=== PATIENT | female | born 1985 | race Caucasian/White ===

== ENCOUNTER 2018-04-26 05:23 | Emergency (ER) | payer BC, SELFPAY ==
--- OUTSIDE RECORDS SUMMARY | 2018-04-26 05:25 | XMS REPORT ---
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
--- OUTSIDE RECORDS SUMMARY | 2018-04-26 05:25 | XMS REPORT ---
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), inattentive type Problem PTSD (post-traumatic stress F43.10 Active disorder) Problem Depression with anxiety F41.8 Active Problem Neck pain M54.2 Active Problem Gastroesophageal reflux disease K21.9 Active without esophagitis Problem Hypothyroidism, unspecified type E03.9 Active Problem 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), inattentive type Problem Primary insomnia F51.01 Active Assessment Seasonal allergic rhinitis, J30.2 Active unspecified trigger Assessment PTSD (post-traumatic stress F43.10 Active disorder) Assessment Depression with anxiety F41.8 Active Assessment Neck pain M54.2 Active Assessment Hypothyroidism, unspecified type E03.9 Active Medications Medication Code Code Instructions Start End Status Dosage System Date Date Levothyroxine [facility] 55711740631 25 MCG Orally Active 1 tablet Sodium Once a day on an empty stomach in the morning Prozac [facility] 61163956990 40 MG Orally Active 1 capsule Once a day in the morning Zantac [facility] 59868908264 150 MG Orally Active 1 tablet Once a day at bedtime Adderall [facility] 55961925160 10 MG Orally Active 1 tablet Twice a day in the morning Ambien [facility] 67010872762 10 MG Orally Active 1 tablet Once a day at bedtime as needed Results No Known Results Summary Purpose [employer] Submission
--- OUTSIDE RECORDS SUMMARY | 2018-04-26 05:25 | XMS REPORT ---
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), inattentive type Problem Hypothyroidism, unspecified type E03.9 Active Problem Seasonal allergic rhinitis, J30.2 Active unspecified trigger Problem Neck pain M54.2 Active Problem PTSD (post-traumatic stress F43.10 Active disorder) Problem Otalgia of both ears H92.03 Active Problem Primary insomnia F51.01 Active Problem Gastroesophageal reflux disease K21.9 Active without esophagitis Problem Depression with anxiety F41.8 Active Problem 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), inattentive type Assessment Otalgia of both ears H92.03 Active Assessment PTSD (post-traumatic stress F43.10 Active disorder) Assessment Depression with anxiety F41.8 Active Assessment Neck pain M54.2 Active Assessment Hypothyroidism, unspecified type E03.9 Active Assessment Seasonal allergic rhinitis, J30.2 Active unspecified trigger Assessment Primary insomnia F51.01 Active Medications Medication Code Code Instructions Start End Status Dosage System Date Prozac [facility] 18545613678 40 MG Orally Active 1 capsule Twice a day in the morning Levothyroxine [facility] 19319472170 25 MCG Orally Active 1 tablet Sodium Once a day on an empty stomach in the morning Amoxicillin [place] 68424778988 500 MG Orally December 10November Active 1 capsule every 8 hrs 2017 Ambien [facility] 85079365975 10 MG Orally Active 1 tablet Once a day at bedtime as needed Adderall [facility] 37458865149 10 MG Orally Active 1 tablet Twice a day in the morning Zantac [facility] 46503740183 150 MG Orally Active 1 tablet Once a day at bedtime Duexis [facility] 52619225867 800-26.6 MG Active 1 tablet Orally Three times a day PRN pain Results No Known Results Summary Purpose [employer]ClinicalWorks Submission
--- OUTSIDE RECORDS SUMMARY | 2018-04-26 05:25 | XMS REPORT ---
:1985 Author Organization [employer]ClinicalWorks Care Team Providers Name Role Phone Genet Kaur Provider Role Unavailable Allergies No Known Allergies Problems Problem Type Condition Code Onset Dates Condition Status Problem Hypothyroidism, unspecified type E03.9 Active Problem Seasonal allergic rhinitis, J30.2 Active unspecified trigger Problem Neck pain M54.2 Active Problem PTSD (post-traumatic stress F43.10 Active disorder) Problem Otalgia of both ears H92.03 Active Problem Primary insomnia F51.01 Active Problem Gastroesophageal reflux disease K21.9 Active without esophagitis Problem Depression with anxiety F41.8 Active Problem 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 67834317491 500 MG Orally January 01, January 08, Active 1 tablet Twice daily 2017 2017 Results No Known Results Summary Purpose [employer] Submission
--- OUTSIDE RECORDS SUMMARY | 2018-04-26 05:25 | XMS REPORT ---
:1985 Author Organization eClinicalWorks Care Team Providers Name Role Phone Kian Edwards Provider Role Unavailable Allergies No Known Allergies Problems Problem Type Condition Code Onset Dates Condition Status Assessment Neck pain M54.2 Active Problem Seasonal allergic rhinitis, J30.2 Active unspecified trigger Assessment Hypothyroidism, unspecified type E03.9 Active Problem PTSD (post-traumatic stress F43.10 Active disorder) Problem Depression with anxiety F41.8 Active Problem Neck pain M54.2 Active Problem Gastroesophageal reflux disease K21.9 Active without esophagitis Problem Hypothyroidism, unspecified type E03.9 Active Problem 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
--- OUTSIDE RECORDS SUMMARY | 2018-04-26 05:25 | XMS REPORT ---
[...] Start End Status Dosage System Date Date Prozac [facility] 63993536085 40 MG Orally Active 1 capsule Once a day in the morning Duexis [facility] 30584839881 800-26.6 MG November 12December Active 1 tablet Orally Three 2017 21, times a day PRN 2017 pain Ambien [place] 13177783842 10 MG Orally Active 1 tablet Once a day at bedtime as needed Adderall [facility] 18382347642 10 MG Orally Active 1 tablet Twice a day in the morning Levothyroxine ND 53265328867 25 MCG Orally Active 1 tablet Sodium Once a day on an empty stomach in the morning Zantac [facility] 46468595628 150 MG Orally Active 1 tablet Once a day at bedtime Results No Known Results Summary Purpose [employer]ClinicalWorks Submission
--- OUTSIDE RECORDS SUMMARY | 2018-04-26 05:25 | XMS REPORT ---
:1985 Author Organization [employer] Care Team Providers Name Role Phone Kian [...] Medications Results No Known Results Summary Purpose [facility] [employer] Submission
--- OUTSIDE RECORDS SUMMARY | 2018-04-26 05:25 | XMS REPORT ---
[...] F90.0 Active hyperactivity disorder), inattentive type Medications No Known Medications Results No Known Results Summary Purpose [employer]ClinicalWorks Submission
--- OUTSIDE RECORDS SUMMARY | 2018-04-26 05:25 | XMS REPORT ---
:1985 Author Organization [employer] Care Team Providers Name Role Phone Kian [...] Medications Results No Known Results Summary Purpose [facility] Submission
--- OUTSIDE RECORDS SUMMARY | 2018-04-26 05:25 | XMS REPORT ---
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
--- OUTSIDE RECORDS SUMMARY | 2018-04-26 05:25 | XMS REPORT ---
:1985 Author Organization [employer]Works Care Team Providers Name Role Phone Genet Kaur Provider Role Unavailable Allergies, Adverse Reactions, Alerts Substance Reaction Event Type tramadol more anxious/no sleep Drug Allergy Topamax mouth break out Drug Allergy Sudafed makes heart race Drug Allergy Problems Problem Type Condition Code Onset Dates Condition Status Problem Hypothyroidism, unspecified type E03.9 Active Problem Seasonal allergic rhinitis, J30.2 Active unspecified trigger Assessment Women's annual routine Z01.419 Active gynecological examination Assessment Generalized abdominal pain R10.84 Active Assessment Vagina itching N89.8 Active Problem Neck pain M54.2 Active Problem PTSD (post-traumatic stress F43.10 Active disorder) Problem Otalgia of both ears H92.03 Active Problem Primary insomnia F51.01 Active Problem Gastroesophageal reflux disease K21.9 Active without esophagitis Problem Depression with anxiety F41.8 Active Problem 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 88817210449 800-26.6 MG Active 1 tablet Orally Three times a day PRN pain Prozac [facility] 65686847229 40 MG Orally Active 1 capsule Twice a day in the morning Ambien [facility] 24848130219 10 MG Orally Active 1 tablet Once a day at bedtime as needed Adderall [facility] 33520560758 10 MG Orally Active 1 tablet Twice a day in the morning Levothyroxine [facility] 20259946031 25 MCG Orally Active 1 tablet Sodium Once a day on an empty stomach in the morning Zantac [facility] 11287614978 150 MG Orally Active 1 tablet Once a day at bedtime Results Name Result Date Reference Range Unit Abnormality Flag URINALYSIS AUTO W/O SCOPE (67749) ----NIT neg 20171226 ----URO 0.2 20171226 ----PROTEIN neg 20171226 ----pH 6.0 20171226 ----BLO 2+ 20171226 ----GLUCOSE neg 20171226 ----CHARLES neg 20171226 ----BILIRUBIN neg 20171226 ----KETONES neg 20171226 ----SPECIFIC GRAVITY 1.030 20171226 Summary Purpose [employer]ClinicalWorks Submission
--- OUTSIDE RECORDS SUMMARY | 2018-04-26 05:26 | XMS REPORT ---
:1985 Author Organization eClinicalWorks Care Team Providers Name Role Phone Jerry Kian Provider Role Unavailable Allergies, Adverse Reactions, Alerts Substance Reaction Event Type tramadol more anxious/no sleep Drug Allergy Topamax mouth break out Drug Allergy Sudafed makes heart race Drug Allergy Problems Problem Type Condition Code Onset Dates Condition Status Problem Primary insomnia F51.01 Active Problem Hypothyroidism, unspecified type E03.9 Active Problem Seasonal allergic rhinitis, J30.2 Active unspecified trigger Problem Otalgia of both ears H92.03 Active Problem Neck pain M54.2 Active Problem Essential tremor G25.0 Active Problem 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), inattentive type Problem Gastroesophageal reflux disease K21.9 Active without esophagitis Problem PTSD (post-traumatic stress F43.10 Active disorder) Problem Depression with anxiety F41.8 Active Assessment Seasonal allergic rhinitis, J30.2 Active unspecified trigger Assessment PTSD (post-traumatic stress F43.10 Active disorder) Assessment Neck pain M54.2 Active Assessment Essential tremor G25.0 Active Assessment Primary insomnia F51.01 Active Assessment Depression with anxiety F41.8 Active Assessment 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), inattentive type Assessment Hypothyroidism, unspecified type E03.9 Active Medications Medication Code Code Instructions Start End Status Dosage System Date Date Levothyroxine [facility] 91906242237 25 MCG Orally Active 1 tablet Sodium Once a day on an empty stomach in the morning Duexis [facility] 94020430082 800-26.6 MG Active 1 tablet Orally Three times a day PRN pain Prozac [facility] 08253492861 40 MG Orally Active 1 capsule Twice a day in the morning Propranolol HCl ND 39085023347 20 MG Orally Feb 06, Active 1 tablet Twice a day 2017 on an empty stomach Belsomra [facility] 44329067039 10 MG Orally Active 1 tablet Once a day at bedtime as needed Adderall [facility] 58363512369 10 MG Orally Active 1 tablet Twice a day in the morning Zantac [facility] 92711532228 150 MG Orally Active 1 tablet Once a day at bedtime Results No Known Results Summary Purpose eClinicalWorks Submission
--- OUTSIDE RECORDS SUMMARY | 2018-04-26 05:26 | XMS REPORT ---
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), inattentive type Assessment Hypothyroidism, unspecified type E03.9 Active Medications Medication Code Code Instructions Start End Status Dosage System Date Prozac [facility] 77060853978 40 MG Orally Active 1 capsule Twice a day in the morning Levothyroxine [facility] 39492063509 25 MCG Orally Active 1 tablet Sodium Once a day on an empty stomach in the morning Adderall [facility] 85660502668 10 MG Orally Active 1 tablet Twice a day in the morning Propranolol HCl [facility] 81670370036 20 MG Orally Active 1 tablet Twice a day on an empty stomach Belsomra [facility] 26143770823 10 MG Orally Active 1 tablet Once a day at bedtime as needed Zantac [facility] 65770499022 150 MG Orally Active 1 tablet Once a day at bedtime Duexis [facility] 93479077085 800-26.6 MG Active 1 tablet Orally Three times a day PRN pain Results No Known Results Summary Purpose [employer]ClinicalWorks Submission
--- OUTSIDE RECORDS SUMMARY | 2018-04-26 05:26 | XMS REPORT ---
:1985 Author Organization [employer]ClinicalWorks Care Team Providers Name Role Phone Jerry Kian Provider Role Unavailable Allergies No Known Allergies [...]
--- OUTSIDE RECORDS SUMMARY | 2018-04-26 05:26 | XMS REPORT ---
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), inattentive type Medications Medication Code Code Instructions Start End Status Dosage System Date Date Belsomra [facility] 18929840223 10 MG Orally January 09, Active 1 tablet Once a day 2017 at bedtime as needed Adderall [facility] 57720666061 10 MG Orally Active 1 tablet Twice a day in the morning Zantac [facility] 34004000471 150 MG Orally Active 1 tablet Once a day at bedtime Prozac [facility] 90252556151 40 MG Orally Active 1 capsule Twice a day in the morning Levothyroxine [facility] 31202814855 25 MCG Orally Active 1 tablet Sodium Once a day on an empty stomach in the morning Duexis [facility] 81003836270 800-26.6 MG Active 1 tablet Orally Three times a day PRN pain Ambien [facility] 53633635572 10 MG Orally Inactive 1 tablet Once a day at bedtime as needed Results No Known Results Summary Purpose eClinicalWorks Submission
--- OUTSIDE RECORDS SUMMARY | 2018-04-26 05:26 | XMS REPORT ---
:1985 Author Organization eClinicalWorks Care Team Providers Name Role Phone Jerry Kian Provider Role Unavailable Allergies No Known Allergies Problems Problem Type Condition Code Onset Dates Condition Status Problem Hypothyroidism, unspecified type E03.9 Active Problem Seasonal allergic rhinitis, J30.2 Active unspecified trigger Assessment Hypothyroidism, unspecified type E03.9 Active Problem Neck pain M54.2 Active Problem PTSD (post-traumatic stress F43.10 Active disorder) Problem Otalgia of both ears H92.03 Active Problem Primary insomnia F51.01 Active Problem Gastroesophageal reflux disease K21.9 Active without esophagitis Problem Depression with anxiety F41.8 Active Problem 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
[2018-04-26 07:18] LABS: Protime INR 0.94
[2018-04-26 07:21] LABS: Absolute Monocytes 0.8 K/uL (0.1-1.3); Absolute Neutrophil 6.6 K/uL (1.8-8.0); Eosinophils % 6.9 % (0-4.4); Hematocrit 37.9 % (36.0-45.0); Lymphocytes % 19.7 % (15.3-44.8); MCH 32.3 pg (27.0-35.0); MCV 93.8 fL (80-100); MPV 8.8 fL (7.6-11.3); Monocytes % 7.4 % (3.3-12.3); RBC Red Blood Cell Count 4.04 M/uL (3.86-4.86)
[2018-04-26 07:40] LABS: ALT/SGPT 37 U/L (12-78); AST/SGOT 19 U/L (15-37); Albumin 3.9 g/dL (3.4-5.0); Alkaline Phosphatase 84 U/L (45-117); BUN Blood Urea Nitrogen 15 mg/dL (7-18); Bicarbonate 26 mmol/L (21-32); Bilirubin Direct < 0.1 mg/dL (0-0.2); Bilirubin Total 0.2 mg/dL (0.2-1.0); Glucose Level 83 mg/dL (74-106); Magnesium 2.1 mg/dL (1.8-2.4); NT PRO-BNP 12 pg/mL (<125); Potassium 3.9 mmol/L (3.5-5.1); Protein, Total 7.5 g/dL (6.4-8.2); Sodium Level 139 mmol/L (136-145); Troponin (Emerg Dept Use Only) < 0.02 ng/mL (0.0-0.045)
--- NOTE | 2018-04-26 08:00 | EDPHYS ---
Physician Documentation [facility] Name: Gayla Nova Age: 32 yrs Sex: Female : 1985 Arrival Date: 04/26/2018 Time: 05:23 Bed 17 Private MD: [facility] ED Physician Massimo Dupree HPI: 04/26 06:12 This 32 yrs old Female presents to ER via Ambulatory with complaints of Chest rh1 Pain. 06:12 The patient or guardian reports chest pain that is located primarily in the anterior rh1 aspect of left upper chest. The pain radiates to the left shoulder. Associated signs and symptoms: Pertinent positives: cough, lightheadedness, near-syncope, shortness of breath, Pertinent negatives: abdominal pain, diaphoresis, lower extremity pain, lower extremity swelling, nausea, palpitations, recent travel, syncope. The chest pain is described as sharp. Duration: The patient or guardian reports multiple episodes, that are intermittent, that wax and wane, the episodes last approximately 1 second(s). Modifying factors: The symptoms are alleviated by nothing. the symptoms are aggravated by deep breath. Severity of pain: At its worst the pain was moderate in the emergency department the pain has resolved. The patient has not experienced similar symptoms in the past. The patient has not recently seen a physician. Reports left upper chest pain that began while at work 1 hour ago, moving through left shoulder. + SOB with onset of pain and continues at this time. Reports pain lasts for < 1 min at a time, and she becomes lightheaded with episodes. Last episode approx. 10 min ago. Denies any diaphoresis, N/V, syncope, leg pain/swelling, no recent surgery/travel.. 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 - Social history:: Smoking status: Patient uses tobacco products, smokes one-half pack cigarettes per day, Patient/guardian denies using alcohol, street drugs. - Ebola Screening: : No symptoms or risks identified at this time. - Family history:: not pertinent. ROS: 06:12 Constitutional: Negative for fever, chills rh1 06:12 ENT: Positive for nasal discharge, Negative for difficulty swallowing, difficulty handling secretions. 06:12 Cardiovascular: Positive for chest pain, Negative for edema, palpitations. 06:12 Respiratory: Positive for cough, with no reported sputum, shortness of breath, Negative for hemoptysis, sputum production, wheezing. 06:12 Abdomen/GI: Negative for abdominal pain, nausea, vomiting, and diarrhea. 06:12 Back: Negative for decreased range of motion, pain at rest, pain with movement, radiated pain. 06:12 MS/extremity: Positive for pain, from left chest, Negative for decreased range of motion, paresthesias. 06:12 Skin: Negative for diaphoresis. 06:12 Neuro: Positive for dizziness, near syncope, Negative for altered mental status, headache, numbness, syncope, tingling, weakness. 06:12 All other systems are negative. Exam: 06:12 Constitutional: This is a well developed, well nourished patient who is awake, alert, rh1 and in no acute distress. Head/Face: Normocephalic, atraumatic. ENT: Nares patent. No nasal discharge, no septal abnormalities noted. Tympanic membranes are normal and external auditory canals are clear. Oropharynx with no redness, swelling, or masses, exudates, or evidence of obstruction, uvula midline. Mucous membranes moist. Neck: Trachea midline, and no cervical lymphadenopathy. Supple, full range of motion without nuchal rigidity. No Meningismus. Cardiovascular: Regular rate and rhythm with a normal S1 and S2. No gallops, murmurs, or rubs. No JVD. No pulse deficits. Respiratory: Lungs have equal breath sounds bilaterally, clear to auscultation. No rales, rhonchi or wheezes noted. No increased work of breathing. Abdomen/GI: Soft, non-tender, with normal bowel sounds. No distension. No guarding or rebound. No evidence of tenderness throughout. Back: No spinal tenderness. No costovertebral tenderness. Full range of motion. 06:12 Skin: Warm, dry with normal turgor. Normal color with no rashes, no lesions, and no evidence of cellulitis. MS/ Extremity: Pulses equal, no cyanosis. Neurovascular intact. Full, normal range of motion. 06:12 Cardiovascular: Edema: is not appreciated. 06:12 Musculoskeletal/extremity: DVT Exam: No signs of deep vein thrombosis. no pain, no swelling, no tenderness, negative Homans' sign noted on exam, no appreciated bluish discoloration, no erythema, no increased warmth, Calves: are non-tender, have equal circumference. 06:12 Neuro: Orientation: is normal, to person, place \T\ time. Mentation: is normal, lucid, able to follow commands, Motor: is normal, moves all fours, Sensation: is normal, no obvious gross deficits. Vital Signs: 05:37 BP 127 / 87; Pulse 85; Resp 16 S; Temp 98.7(O); Pulse Ox 100% on R/A; Weight 97.52 kg bb (R); Height 5 ft. 2 in. (157.48 cm) (R); Pain 6/10; 07:05 BP 116 / 65; Pulse 79; Resp 19; Pulse Ox 100% on R/A; Pain 2/10; em 08:00 BP 112 / 72; Pulse 77; Resp 18; Pulse Ox 99% on R/A; Pain 2/10; em 05:37 Body Mass Index 39.32 (97.52 kg, 157.48 cm) bb MDM: 06:12 Patient medically screened. rh1 06:40 ED course: PERC = 0. rh1 07:57 The patient's deep vein thrombosis risk score was calculated as follows: Total Score: rh1 0. This patient was found to be at low risk for a deep vein thrombosis by using the Well's assessment criteria. Data reviewed: vital signs, nurses notes, lab test result(s), EKG, radiologic studies, plain films, and as a result, I will discharge patient. Data interpreted: Pulse oximetry: on room air is 100 %. Interpretation: normal. Counseling: I had a detailed discussion with the patient and/or guardian regarding: the historical points, exam findings, and any diagnostic results supporting the discharge/admit diagnosis, lab results, radiology results, the need for outpatient follow up, a family practitioner, to return to the emergency department if symptoms worsen or persist or if there are any questions or concerns that arise at home. ED course: Without pain at this time, VSS, labs unremarkable. 07:57 Special discussion: Based on the patient's history, exam, and Dx evaluation, there is rh1 no indication for emergent intervention or inpatient Tx. It is understood by the patient/guardian that if the Sx's persist or worsen they need to return immediately for re-evaluation. 04/26 06:10 Order name: Urine Dipstick--Ancillary (enter results) ms 04/26 06:10 Order name: Urine --Ancillary (enter results) ms 04/26 06:33 Order name: Basic Metabolic Panel; Complete Time: 07:41 [facility] 04/26 06:33 Order name: CBC with Diff; Complete Time: 07:29 [facility] 04/26 06:33 Order name: LFT's; Complete Time: 07:41 rh 04/26 06:33 Order name: Magnesium; Complete Time: 07:41 rh 04/26 06:33 Order name: NT PRO-BNP; Complete Time: 07:41 rh 04/26 06:33 Order name: PT-INR; Complete Time: 07:29 rh1 04/26 06:33 Order name: Troponin (emerg Dept Use Only); Complete Time: 07:41 [facility] 04/26 06:33 Order name: XRAY Chest (1 view) [facility] 04/26 06:33 Order name: TSH; Complete Time: 07:41 [facility] 04/26 06:33 Order name: Cardiac monitoring; Complete Time: 06:35 rh1 04/26 06:33 Order name: EKG - Nurse/Tech; Complete Time: 06:35 rh1 04/26 06:33 Order name: IV Saline Lock; Complete Time: 06:35 rh 04/26 06:33 Order name: Labs collected and sent; Complete Time: 06:35 1 04/26 06:33 Order name: O2 Per Protocol; Complete Time: 06:35 [facility] 04/26 06:33 Order name: O2 Sat Monitoring; Complete Time: 06:35 rh1 Administered Medications: No medications were administered Disposition: 08:19 Co-signature as Attending Physician, Massimo Dupree MD I agree with the assessment and kdr plan of care. Disposition: 04/26/18 07:59 Discharged to Home. Impression: Chest pain on breathing. - Condition is Stable. - Discharge Instructions: Nonspecific Chest Pain, Chest Wall Pain, Pleurisy. - Medication Reconciliation Form, Thank You Letter, Antibiotic Education, Prescription Opioid Use form. - Follow up: Kian Edwards DO; When: 1 - 2 days; Reason: Recheck today's complaints, Continuance of care, Re-evaluation by your physician. Follow up: Emergency Department; When: As needed; Reason: Fever > 102 F, If symptoms return, Trouble breathing, Worsening of condition. - Problem is new. - Symptoms have improved. Signatures: Dispatcher [employer] [facility] Massimo Dupree MD MD kdr Jesus Manuel Ospina, INSPECTOR CASING INSPECTOR CASING em Dee Arzate, RN RN Chasity Lua, DIGITAL MARKETING ASSOCIATE DIGITAL MARKETING ASSOCIATE rh1 Corrections: (The following items were deleted from the chart) 06:11 06:11 Urine Dipstick-Ancillary ordered. [facility] 06:11 06:11 Urine --Ancillary ordered. [facility] 08:14 07:59 04/26/2018 07:59 Discharged to Home. Impression: Chest pain on breathing. em Condition is Stable. Forms are Medication Reconciliation Form, Thank You Letter, Antibiotic Education, Prescription Opioid Use. Follow up: Kian Edwards; When: 1 - 2 days; Reason: Recheck today's complaints, Continuance of care, Re-evaluation by your physician. Follow up: Emergency Department; When: As needed; Reason: Fever > 102 F, If symptoms return, Trouble breathing, Worsening of condition. Problem is new. Symptoms have improved. rh1
--- NOTE | 2018-04-26 08:00 | ER ---
Nurse's Notes [facility] Name: Gayla Nova Age: 32 yrs Sex: Female : 1985 Arrival Date: 04/26/2018 Time: 05:23 Bed 17 Private MD: Kian Edwards Diagnosis: Chest pain on breathing Presentation: 04/26 05:32 Presenting complaint: Patient states: she was at work this morning and started having bb chest pain which is a constant dull pain and intermittent sharp pain which is also radiating to her left elbow. Transition of care: patient was not received from another setting of care. Onset of symptoms was April 26, 2018. Risk Assessment: Do you want to hurt yourself or someone else? Patient reports no desire to harm self or others. Initial Sepsis Screen: Does the patient meet any 2 criteria? No. Patient's initial sepsis screen is negative. Does the patient have a suspected source of infection? No. Patient's initial sepsis screen is negative. Care prior to arrival: None. 05:32 Method Of Arrival: Ambulatory bb 05:32 Acuity: AIDEN 3 bb Triage Assessment: 05:41 General: Appears in no apparent distress. Pain: Complains of pain in chest Pain wh radiates to left arm Pain currently is 3 out of 10 on a pain scale. at worst was 8 out of 10 on a pain scale. Quality of pain is described as sharp. Cardiovascular: Reports chest pain. 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 - Social history:: Smoking status: Patient uses tobacco products, smokes one-half pack cigarettes per day, Patient/guardian denies using alcohol, street drugs. - Ebola Screening: : No symptoms or risks identified at this time. - Family history:: not pertinent. Screenin:41 Abuse screen: Denies threats or abuse. Denies injuries from another. Nutritional wh screening: No deficits noted. Tuberculosis screening: No symptoms or risk factors identified. Fall Risk None identified. Assessment: 05:45 Pain: Pain began 2 hours ago. wh 05:45 General: Appears in no apparent distress. Behavior is calm, cooperative, appropriate wh for age. Pain: Complains of pain in chest Pain radiates to left arm Pain currently is 3 out of 10 on a pain scale. at worst was 8 out of 10 on a pain scale. Quality of pain is described as sharp, Pain began. Neuro: Level of Consciousness is awake, alert, obeys commands, Cash Applications Analyst are equal bilaterally. Cardiovascular: Heart tones S1 S2 Capillary refill < 3 seconds Rhythm is sinus rhythm. Respiratory: Airway is patent Respiratory effort is even, unlabored, Respiratory pattern is regular, symmetrical, Breath sounds are clear bilaterally. GI: Abdomen is flat, non-distended. : No signs and/or symptoms were reported regarding the genitourinary system. EENT: No signs and/or symptoms were reported regarding the EENT system. Derm: Skin is intact, is healthy with good turgor, Skin is pink, warm \T\ dry. normal. Musculoskeletal: Range of motion: intact in all extremities. 07:05 Reassessment: Patient appears in no apparent distress at this time. Patient and/or em family updated on plan of care and expected duration. Pain level reassessed. Patient is alert, oriented x 3, equal unlabored respirations, skin warm/dry/pink. Patient states symptoms have improved. 08:00 Reassessment: Patient appears in no apparent distress at this time. Patient and/or em family updated on plan of care and expected duration. Pain level reassessed. Patient is alert, oriented x 3, equal unlabored respirations, skin warm/dry/pink. Vital Signs: 05:37 BP 127 / 87; Pulse 85; Resp 16 S; Temp 98.7(O); Pulse Ox 100% on R/A; Weight 97.52 kg bb (R); Height 5 ft. 2 in. (157.48 cm) (R); Pain 6/10; 07:05 BP 116 / 65; Pulse 79; Resp 19; Pulse Ox 100% on R/A; Pain 2/10; em 08:00 BP 112 / 72; Pulse 77; Resp 18; Pulse Ox 99% on R/A; Pain 2/10; em 05:37 Body Mass Index 39.32 (97.52 kg, 157.48 cm) bb ED Course: 05:23 Patient arrived in ED. es 05:24 Kian Edwards DO is Private Physician. es 05:34 Triage completed. bb 05:35 Aissatuo Rivera is Primary Nurse. wh 05:37 Arm band placed on Patient placed in an exam room, on a stretcher, on pulse oximetry. bb EKG completed in triage. Results shown to MD. 05:43 Patient has correct armband on for positive identification. Placed in gown. Bed in low wh position. Call light in reach. Side rails up X 1. gambling monitor on. Pulse ox on. NIBP on. 05:45 Patient maintains SpO2 saturation greater than 95% on room air. 06:12 Chasity Izaguirre NP is PHCP. rh1 06:12 Massimo Dupree MD is Attending Physician. rh1 07:09 Initial lab(s) drawn, by nh, sent to lab. Inserted saline lock: 22 gauge in right em antecubital area, using aseptic technique. Blood collected. 07:14 XRAY Chest (1 view) In Process Unspecified. EDMS 07:58 Kian Edwards DO is Referral Physician. rh1 08:04 No provider procedures requiring assistance completed. IV discontinued, intact, em bleeding controlled, No redness/swelling at site. Pressure dressing applied. Administered Medications: No medications were administered Outcome: 07:59 Discharge ordered by MD. rh1 08:04 Discharged to home ambulatory. em 08:04 Condition: good 08:04 Discharge instructions given to patient, Instructed on discharge instructions, follow up and referral plans. Demonstrated understanding of instructions, follow-up care. 08:14 Patient left the ED. em Signatures: Dispatcher [employer] Joanie Fuchs Edgar, LAP CUTTER LAP CUTTER Dee Barahona, RN RN bb Chasity Izaguirre NP TANK HOOP BENDER rh1 Aissatou Rivera Corrections: (The following items were deleted from the chart) 05:45 05:41 Pain: Complains of pain in chest Pain does not radiate. Pain currently is 3 out wh of 10 on a pain scale. at worst was 8 out of 10 on a pain scale. Quality of pain is described as sharp, wh
--- NOTE | 2018-04-26 09:10 | RAD REPORT ---
EXAM DESCRIPTION: Michelle Single View04/26/2018 7:14 am CLINICAL HISTORY: Chest pain COMPARISON: none FINDINGS: The lungs appear clear of acute infiltrate. The heart is normal size IMPRESSION: No acute abnormalities displayed
[2018-04-26 11:41] LABS: Urine Blood TRACE (NEG); Urine Glucose NEGATIVE (NEG); Urine Protein NEGATIVE (NEG); Urine Specific Gravity 1.025 (1.005-1.030)
== END 2018-04-26 08:14 | disposition home or self-care (01) ==
LOC: ER 05:23
DX: R07.1 Chest pain on breathing (principal); F17.210 Nicotine dependence, cigarettes, uncomplicated; F90.9 Attention-deficit hyperactivity disorder, unspecified type; E03.9 Hypothyroidism, unspecified; F41.9 Anxiety disorder, unspecified; F32.9 Major depressive disorder, single episode, unspecified; Z88.5 Allergy status to narcotic agent; Z88.8 Allergy status to other drugs, medicaments and biological substances
CPT/HCPCS: 36415; 71045; 80048; 80076; 81003; 81025; 83735; 83880; 84443; 84484; 85025; 85610; 99285

== ENCOUNTER 2018-05-31 16:27 | Emergency (ER) | payer BC ==
--- OUTSIDE RECORDS SUMMARY | 2018-05-31 16:57 | XMS REPORT ---
[...] Start End Status Dosage System Date Prozac [facility] 79690427373 40 MG Orally Active 1 capsule Twice a day in the morning Levothyroxine [facility] 02007810532 25 MCG Orally Active 1 tablet Sodium Once a day on an empty stomach in the morning Amoxicillin ND 34116403369 500 MG Orally December 10November Active 1 capsule every 8 hrs 2017 Ambien [facility] 47428583942 10 MG Orally Active 1 tablet Once a day at bedtime as needed Adderall [facility] 58051430862 10 MG Orally Active 1 tablet Twice a day in the morning Zantac [facility] 45895829489 150 MG Orally Active 1 tablet Once a day at bedtime Duexis [facility] 96355713380 800-26.6 MG Active 1 tablet Orally Three times a day PRN pain Results No Known Results Summary Purpose eClinicalWorks Submission
--- OUTSIDE RECORDS SUMMARY | 2018-05-31 16:57 | XMS REPORT ---
[...] End Status Dosage System Date Date Prozac [facility] 59907184087 40 MG Orally Active 1 capsule Once a day in the morning Duexis [facility] 23078314255 800-26.6 MG November 12December Active 1 tablet Orally Three 2017 21, times a day PRN 2017 pain Ambien [place] 27088720811 10 MG Orally Active 1 tablet Once a day at bedtime as needed Adderall [facility] 21287661181 10 MG Orally Active 1 tablet Twice a day in the morning Levothyroxine ND 05858978577 25 MCG Orally Active 1 tablet Sodium Once a day on an empty stomach in the morning Zantac [facility] 77665445316 150 MG Orally Active 1 tablet Once a day at bedtime Results No Known Results Summary Purpose eClinicalWorks Submission
--- OUTSIDE RECORDS SUMMARY | 2018-05-31 16:57 | XMS REPORT ---
[...] Instructions Start End Date Status Dosage Date [facility] 10048001340 40 MG Orally Active 1 capsule Once a day in the morning Results No Known Results Summary Purpose eClinicalWorks Submission
--- OUTSIDE RECORDS SUMMARY | 2018-05-31 16:57 | XMS REPORT ---
:1985 Author Organization [employer] Care Team Providers Name Role Phone Kian [...] Medications Results No Known Results Summary Purpose PrifloatinicalVizimax Submission
--- OUTSIDE RECORDS SUMMARY | 2018-05-31 16:57 | XMS REPORT ---
:1985 Author Organization [employer] Care Team Providers Name Role Phone Kian [...] Medications Results No Known Results Summary Purpose [employer] Submission
--- OUTSIDE RECORDS SUMMARY | 2018-05-31 16:57 | XMS REPORT ---
[...] End Status Dosage System Date Date Levothyroxine [facility] 18482393273 25 MCG Orally Active 1 tablet Sodium Once a day on an empty stomach in the morning Prozac [facility] 95974210508 40 MG Orally Active 1 capsule Once a day in the morning Zantac [facility] 46043078375 150 MG Orally Active 1 tablet Once a day at bedtime Adderall [facility] 33917527063 10 MG Orally Active 1 tablet Twice a day in the morning Ambien [facility] 23899719572 10 MG Orally Active 1 tablet Once a day at bedtime as needed Results No Known Results Summary Purpose eClinicalWorks Submission
--- OUTSIDE RECORDS SUMMARY | 2018-05-31 16:57 | XMS REPORT ---
:1985 Author Organization [employer] Care Team Providers Name Role Phone Kian [...] Medications Results No Known Results Summary Purpose [employer] Submission
--- OUTSIDE RECORDS SUMMARY | 2018-05-31 16:57 | XMS REPORT ---
[...] End Status Dosage System Date Date Duexis [facility] 67947627708 800-26.6 MG Active 1 tablet Orally Three times a day PRN pain Prozac [facility] 00470999605 40 MG Orally Active 1 capsule Twice a day in the morning Ambien [facility] 48639924037 10 MG Orally Active 1 tablet Once a day at bedtime as needed Adderall [facility] 98366211364 10 MG Orally Active 1 tablet Twice a day in the morning Levothyroxine [facility] 01426249161 25 MCG Orally Active 1 tablet Sodium Once a day on an empty stomach in the morning Zantac [facility] 57320268799 150 MG Orally Active 1 tablet Once a day at bedtime Results Name Result Date Reference Range Unit Abnormality Flag URINALYSIS AUTO W/O SCOPE (53156) ----NIT neg 20171226 ----URO 0.2 20171226 ----PROTEIN neg 20171226 ----pH 6.0 20171226 ----BLO 2+ 20171226 ----GLUCOSE neg 20171226 ----CHARLES neg 20171226 ----BILIRUBIN neg 20171226 ----KETONES neg 20171226 ----SPECIFIC GRAVITY 1.030 20171226 Summary Purpose eClinicalWorks Submission
--- OUTSIDE RECORDS SUMMARY | 2018-05-31 16:57 | XMS REPORT ---
[...] End Status Dosage System Date Date Belsomra [facility] 56656486971 10 MG Orally January 09, Active 1 tablet Once a day 2017 at bedtime as needed Adderall [facility] 41505768516 10 MG Orally Active 1 tablet Twice a day in the morning Zantac [facility] 86352744381 150 MG Orally Active 1 tablet Once a day at bedtime Prozac [facility] 87301285575 40 MG Orally Active 1 capsule Twice a day in the morning Levothyroxine [facility] 73044342644 25 MCG Orally Active 1 tablet Sodium Once a day on an empty stomach in the morning Duexis [facility] 66399126337 800-26.6 MG Active 1 tablet Orally Three times a day PRN pain Ambien [facility] 51133759009 10 MG Orally Inactive 1 tablet Once a day at bedtime as needed Results No Known Results Summary Purpose eClinicalWorks Submission
--- OUTSIDE RECORDS SUMMARY | 2018-05-31 16:57 | XMS REPORT ---
[...] Start Date End Date Status Dosage Flagyl [facility] 08084186472 500 MG Orally January 01, January 08, Active 1 tablet Twice daily 2017 2017 Results No Known Results Summary Purpose eClinicalWorks Submission
--- OUTSIDE RECORDS SUMMARY | 2018-05-31 16:58 | XMS REPORT ---
[...] Start End Status Dosage System Date Prozac [facility] 80495853328 40 MG Orally Active 1 capsule Twice a day in the morning Levothyroxine [facility] 60997325098 25 MCG Orally Active 1 tablet Sodium Once a day on an empty stomach in the morning Adderall [facility] 05179051809 10 MG Orally Active 1 tablet Twice a day in the morning Propranolol HCl [facility] 73267014535 20 MG Orally Active 1 tablet Twice a day on an empty stomach Belsomra [facility] 49395677950 10 MG Orally Active 1 tablet Once a day at bedtime as needed Zantac [facility] 27286722408 150 MG Orally Active 1 tablet Once a day at bedtime Duexis [facility] 88544261533 800-26.6 MG Active 1 tablet Orally Three times a day PRN pain Results No Known Results Summary Purpose eClinicalWorks Submission
--- OUTSIDE RECORDS SUMMARY | 2018-05-31 16:58 | XMS REPORT ---
[...] End Status Dosage System Date Date Levothyroxine [facility] 78847507210 25 MCG Orally Active 1 tablet Sodium Once a day on an empty stomach in the morning Results No Known Results Summary Purpose eClinicalWorks Submission
--- OUTSIDE RECORDS SUMMARY | 2018-05-31 16:58 | XMS REPORT ---
[...] End Status Dosage System Date Date Levothyroxine [facility] 61971844200 25 MCG Orally Active 1 tablet Sodium Once a day on an empty stomach in the morning Duexis [facility] 73216258723 800-26.6 MG Active 1 tablet Orally Three times a day PRN pain Prozac [facility] 26012888717 40 MG Orally Active 1 capsule Twice a day in the morning Propranolol HCl ND 56232199853 20 MG Orally Feb 06, Active 1 tablet Twice a day 2017 on an empty stomach Belsomra [facility] 10927952521 10 MG Orally Active 1 tablet Once a day at bedtime as needed Adderall [facility] 72915840796 10 MG Orally Active 1 tablet Twice a day in the morning Zantac [facility] 01488193965 150 MG Orally Active 1 tablet Once a day at bedtime Results No Known Results Summary Purpose eClinicalWorks Submission
[2018-05-31] MEDS ORDERED: KETOROLAC 30 MG/ML INJ ONE (17:20)
[2018-05-31] MEDS ORDERED: DIAZEPAM 5 MG TABLET ONE (17:20)
--- NOTE | 2018-05-31 17:46 | EDPHYS ---
Physician Documentation [facility] Name: Gayla Nova Age: 33 yrs Sex: Female : 1985 Arrival Date: 05/31/2018 Time: 16:32 Bed 25 Private MD: Jerry [facility] ED Physician Harpreet Easley HPI: 05/31 17:08 This 33 yrs old Female presents to ER via Ambulatory with complaints of Neck snw Swelling. 17:08 The patient or guardian complains of spasm, swelling, tenderness. The symptoms are snw located on the right lateral aspect of neck. Onset: The symptoms/episode began/occurred suddenly, today, upon awakening. Context: The problem was sustained at an unknown location, The neck injury/problem resulted from unknown. Associated signs and symptoms: The patient has no apparent associated signs or symptoms. The pain does not radiate. Modifying factors: The symptoms are alleviated by nothing. the symptoms are aggravated by movement, pressure. Severity of symptoms: At their worst the symptoms were moderate. The patient has not experienced similar symptoms in the past. The patient has not recently seen a physician. denies injury, fever, sore throat, ear pain. Historical: - Allergies: 16:46 Sudafed (RAPID HEART RATE); sv 16:46 Tramadol HCl (Unable to sleep); sv - PMHx: 16:46 ADD/ADHD; Anxiety; Depression; ESSENTIAL TREMORS; Hypothyroidism; sv - PSHx: 16:46 ; Cholecystectomy; Lap band; sv - Immunization history:: Adult Immunizations up to date. - Social history:: Smoking status: Patient uses tobacco products, smokes one-half pack cigarettes per day. - Ebola Screening: : No symptoms or risks identified at this time. ROS: 17:00 Constitutional: Negative for fever, chills, and weight loss, Eyes: Negative for injury, snw pain, redness, and discharge, ENT: Negative for injury, pain, and discharge, Cardiovascular: Negative for chest pain, palpitations, and edema, Respiratory: Negative for shortness of breath, cough, wheezing, and pleuritic chest pain, Abdomen/GI: Negative for abdominal pain, nausea, vomiting, diarrhea, and constipation, Back: Negative for injury and pain, : Negative for injury, bleeding, discharge, and swelling, MS/Extremity: Negative for injury and deformity, Skin: Negative for injury, rash, and discoloration, Neuro: Negative for headache, weakness, numbness, tingling, and seizure, Psych: Negative for depression, anxiety, suicide ideation, homicidal ideation, and hallucinations. 17:00 Neck: Positive for swelling, tenderness, of the left lateral aspect of neck. Exam: 16:59 Constitutional: This is a well developed, well nourished patient who is awake, alert, snw and in no acute distress. Head/Face: Normocephalic, atraumatic. Eyes: Pupils equal round and reactive to light, extra-ocular motions intact. Lids and lashes normal. Conjunctiva and sclera are non-icteric and not injected. Cornea within normal limits. Periorbital areas with no swelling, redness, or edema. ENT: Nares patent. No nasal discharge, no septal abnormalities noted. Tympanic membranes are normal and external auditory canals are clear. Oropharynx with no redness, swelling, or masses, exudates, or evidence of obstruction, uvula midline. Mucous membranes moist. Chest/axilla: Normal chest wall appearance and motion. Nontender with no deformity. No lesions are appreciated. Cardiovascular: Regular rate and rhythm with a normal S1 and S2. No gallops, murmurs, or rubs. Normal PMI, no JVD. No pulse deficits. Respiratory: Lungs have equal breath sounds bilaterally, clear to auscultation and percussion. No rales, rhonchi or wheezes noted. No increased work of breathing, no retractions or nasal flaring. Abdomen/GI: Soft, non-tender, with normal bowel sounds. No distension or tympany. No guarding or rebound. No evidence of tenderness throughout. Back: No spinal tenderness. No costovertebral tenderness. Full range of motion. Skin: Warm, dry with normal turgor. Normal color with no rashes, no lesions, and no evidence of cellulitis. MS/ Extremity: Pulses equal, no cyanosis. Neurovascular intact. Full, normal range of motion. Neuro: Awake and alert, GCS 15, oriented to person, place, time, and situation. Cranial nerves II-XII grossly intact. Motor strength 5/5 in all extremities. Sensory grossly intact. Cerebellar exam normal. Normal gait. 16:59 Neck: External neck: tenderness, that is moderate, of the right lateral aspect of neck, tender, tense, muscle chain. Vital Signs: 16:47 BP 116 / 84; Pulse 76; Resp 20; Temp 98.7; Pulse Ox 99% ; Weight 99.79 kg; Height 5 ft. sv 2 in. (157.48 cm); Pain 6/10; 16:47 Body Mass Index 40.24 (99.79 kg, 157.48 cm) sv MDM: 16:49 Patient medically screened. snw 06/01 07:40 Data reviewed: vital signs, nurses notes. Data interpreted: Pulse oximetry: on room air snw is 99 %. Counseling: I had a detailed discussion with the patient and/or guardian regarding: the historical points, exam findings, and any diagnostic results supporting the discharge/admit diagnosis, the need for outpatient follow up, for definitive care. 07:45 Response to treatment: the patient's symptoms have markedly improved after treatment. snw Special discussion: I have referred the patient to see his PCP for further evaluation of high blood pressure. Based on the history and exam findings, there is no indication for further emergent testing or inpatient evaluation. I discussed with the patient/guardian the need to see the primary care provider for further evaluation of the symptoms. Administered Medications: 05/31 17:10 Drug: Valium 5 mg Route: PO; ls4 17:37 Follow up: Response: No adverse reaction; Marked relief of symptoms ls4 17:10 Drug: TORadol 60 mg Route: IM; Site: left deltoid; ls4 17:37 Follow up: Response: No adverse reaction ls4 17:37 Follow up: Response: Marked relief of symptoms ls4 Disposition: 05/31/18 17:46 Discharged to Home. Impression: Muscle spasm - lateral cervical. - Condition is Stable. - Discharge Instructions: Muscle Cramps and Spasms, Heat Therapy. - Prescriptions for Diclofenac Sodium 75 mg Oral Tablet Sustained Release - take 1 tablet by ORAL route 2 times per day; 30 tablet. orphenadrine citrate 100 mg Oral Tablet Sustained Release - take 1 tablet by ORAL route 2 times per day As needed; 20 tablet. - Work release form, Medication Reconciliation Form, Thank You Letter, Antibiotic Education, Prescription Opioid Use form. - Follow up: Kian Jerry; When: 2 - 3 days; Reason: Recheck today's complaints, Continuance of care, Re-evaluation by your physician. Follow up: Emergency Department; When: As needed; Reason: Worsening of condition. Addendum: 06/02/2018 06:29 Co-signature as Attending Physician, Harpreet Easley MD I agree with the assessment and c brink plan of care. Signatures: Nahomi Melara, RN RN Harpreet Gibbons MD MD cha Therrien, Shelly, CLINICAL LAW PROFESSOR-C CLINICAL LAW PROFESSOR-Csnw Manisha Becker, CLINICAL LAW PROFESSOR CLINICAL LAW PROFESSOR id Florina Navarro RN RN ss Carola Shields RN RN ls4 Corrections: (The following items were deleted from the chart) 05/31 17:53 17:46 05/31/2018 17:46 Discharged to Home. Impression: Muscle spasm - lateral cervical. ss Condition is Stable. Discharge Instructions: Muscle Cramps and Spasms, Heat Therapy. Prescriptions for Diclofenac Sodium 75 mg Oral Tablet Sustained Release - take 1 tablet by ORAL route 2 times per day; 30 tablet, orphenadrine citrate 100 mg Oral Tablet Sustained Release - take 1 tablet by ORAL route 2 times per day As needed; 20 tablet. and Forms are Work release form, Medication Reconciliation Form, Thank You Letter, Antibiotic Education, Prescription Opioid Use. Follow up: [facility]; When: 2 - 3 days; Reason: Recheck today's complaints, Continuance of care, Re-evaluation by your physician. Follow up: Emergency Department; When: As needed; Reason: Worsening of condition. nh
--- NOTE | 2018-05-31 17:46 | ER ---
Nurse's Notes [facility] Name: Gayla Nova Age: 33 yrs Sex: Female : 1985 Arrival Date: 05/31/2018 Time: 16:32 Bed 25 Private MD: Kian Edwards Diagnosis: Muscle spasm-lateral cervical Presentation: 05/31 16:45 Presenting complaint: Patient states: left sided neck swelling started today around sv 0300. c/o left sided head, neck pain. Transition of care: patient was not received from another setting of care. Onset of symptoms was May 31, 2018 at 03:00. Care prior to arrival: None. 16:45 Method Of Arrival: Ambulatory sv 16:45 Acuity: AIDEN 3 sv 16:55 Risk Assessment: Do you want to hurt yourself or someone else? Patient reports no ls4 desire to harm self or others. Initial Sepsis Screen: Does the patient meet any 2 criteria? No. Patient's initial sepsis screen is negative. Does the patient have a suspected source of infection? No. Patient's initial sepsis screen is negative. Triage Assessment: 16:47 General: Appears in no apparent distress. uncomfortable, obese, Behavior is calm, sv cooperative, appropriate for age. Pain: Complains of pain in left frontal area, left temporal area, left ear, left posterior aspect of neck, left lateral aspect of neck and left anterior aspect of neck Pain currently is 6 out of 10 on a pain scale. Neuro: Level of Consciousness is awake, alert, obeys commands, Oriented to person, place, time, situation, Moves all extremities. Full function Gait is steady, Speech is normal. Respiratory: Respiratory effort is even, unlabored, Respiratory pattern is regular, symmetrical. Historical: - Allergies: 16:46 Sudafed (RAPID HEART RATE); sv 16:46 Tramadol HCl (Unable to sleep); sv - PMHx: 16:46 ADD/ADHD; Anxiety; Depression; ESSENTIAL TREMORS; Hypothyroidism; sv - PSHx: 16:46 ; Cholecystectomy; Lap band; sv - Immunization history:: Adult Immunizations up to date. - Social history:: Smoking status: Patient uses tobacco products, smokes one-half pack cigarettes per day. - Ebola Screening: : No symptoms or risks identified at this time. Screenin:55 Abuse screen: Denies threats or abuse. Denies injuries from another. Nutritional ls4 screening: No deficits noted. Tuberculosis screening: No symptoms or risk factors identified. Fall Risk None identified. Vital Signs: 16:47 BP 116 / 84; Pulse 76; Resp 20; Temp 98.7; Pulse Ox 99% ; Weight 99.79 kg; Height 5 ft. sv 2 in. (157.48 cm); Pain 6/10; 16:47 Body Mass Index 40.24 (99.79 kg, 157.48 cm) sv ED Course: 16:32 Patient arrived in ED. mr 16:32 Kian Edwards DO is Private Physician. mr 16:45 Triage completed. sv 16:47 Arm band placed on Patient placed in an exam room. sv 16:49 [facility]C [facility]. snw 16:49 Harpreet Easley MD is Attending Physician. snw 16:54 Carola Shields, LISETTE is Primary Nurse. ls4 16:55 No provider procedures requiring assistance completed. ls4 16:56 Patient has correct armband on for positive identification. Bed in low position. Side ls4 rails up X 1. 17:46 Kian Edwards DO is Referral Physician. nh 17:52 Patient did not have IV access during this emergency room visit. ss Administered Medications: 17:10 Drug: Valium 5 mg Route: PO; ls4 17:37 Follow up: Response: No adverse reaction; Marked relief of symptoms ls4 17:10 Drug: TORadol 60 mg Route: IM; Site: left deltoid; ls4 17:37 Follow up: Response: No adverse reaction ls4 17:37 Follow up: Response: Marked relief of symptoms ls4 Outcome: 17:46 Discharge ordered by . sc 17:52 Discharged to home ambulatory, with significant other. ss 17:52 Condition: good 17:52 Discharge instructions given to patient, family, Instructed on discharge instructions, follow up and referral plans. medication usage, Demonstrated understanding of instructions, follow-up care, medications, Prescriptions given X 2. 17:53 Patient left the ED. Signatures: Nahomi Melara RN RN Tiny Zheng FNP-C [employer] Manisha Becker FNP [employer]IVER sc BabarSwapna mr Florina Navarro RN RN Cornelius, Carola, RN RN ls4 Corrections: (The following items were deleted from the chart) 16:48 16:47 Pulse 76bpm; Resp 20bpm; Pulse Ox 99%; Temp 98.7F; 99.79 kg; Height 5 ft. 2 in.; sv BMI: 40.2; Pain 6/10; sv
== END 2018-05-31 17:53 | disposition home or self-care (01) ==
LOC: ER 16:27
DX: M62.838 Other muscle spasm (principal); F17.210 Nicotine dependence, cigarettes, uncomplicated
CPT/HCPCS: 96372; 99283

== ENCOUNTER 2018-07-23 01:46 | Emergency (ER) | payer BC ==
--- OUTSIDE RECORDS SUMMARY | 2018-07-23 01:48 | XMS REPORT ---
:1985 Author Organization [employer] Care Team Providers Name Role Phone Kian [...] Medications Results No Known Results Summary Purpose [employer] Submission
--- OUTSIDE RECORDS SUMMARY | 2018-07-23 01:48 | XMS REPORT ---
[...] End Status Dosage System Date Date Duexis [facility] 56483686874 800-26.6 MG Active 1 tablet Orally Three times a day PRN pain Prozac [facility] 68039958031 40 MG Orally Active 1 capsule Twice a day in the morning Ambien [facility] 37936916547 10 MG Orally Active 1 tablet Once a day at bedtime as needed Adderall [facility] 57893909821 10 MG Orally Active 1 tablet Twice a day in the morning Levothyroxine [facility] 66078909670 25 MCG Orally Active 1 tablet Sodium Once a day on an empty stomach in the morning Zantac [facility] 69514362594 150 MG Orally Active 1 tablet Once a day at bedtime Results Name Result Date Reference Range Unit Abnormality Flag URINALYSIS AUTO W/O SCOPE (70256) ----NIT neg [id number] ----URO 0.2 20171226 ----PROTEIN neg [id number] ----pH 6.0 20171226 ----BLO 2+ 20171226 ----GLUCOSE neg 20171226 ----CHARLES neg [id number] ----BILIRUBIN neg 20171226 ----KETONES neg [id number] ----SPECIFIC GRAVITY 1.030 20171226 Summary Purpose eClinicalWorks Submission
--- OUTSIDE RECORDS SUMMARY | 2018-07-23 01:48 | XMS REPORT ---
[...] Start End Status Dosage System Date Prozac [facility] 71286487727 40 MG Orally Active 1 capsule Twice a day in the morning Levothyroxine [facility] 60833034881 25 MCG Orally Active 1 tablet Sodium Once a day on an empty stomach in the morning Amoxicillin ND 17356228944 500 MG Orally December 10November Active 1 capsule every 8 hrs 2017 Ambien [facility] 35263105729 10 MG Orally Active 1 tablet Once a day at bedtime as needed Adderall [facility] 67583214091 10 MG Orally Active 1 tablet Twice a day in the morning Zantac [facility] 92500377607 150 MG Orally Active 1 tablet Once a day at bedtime Duexis [facility] 12092828694 800-26.6 MG Active 1 tablet Orally Three times a day PRN pain Results No Known Results Summary Purpose eClinicalWorks Submission
--- OUTSIDE RECORDS SUMMARY | 2018-07-23 01:48 | XMS REPORT ---
[...] Instructions Start End Date Status Dosage Date [facility] 73499788407 40 MG Orally Active 1 capsule Once a day in the morning Results No Known Results Summary Purpose eClinicalWorks Submission
--- OUTSIDE RECORDS SUMMARY | 2018-07-23 01:48 | XMS REPORT ---
[...] Start Date End Date Status Dosage Flagyl [facility] 14821277714 500 MG Orally January 01, January 08, Active 1 tablet Twice daily 2017 2017 Results No Known Results Summary Purpose eClinicalWorks Submission
--- OUTSIDE RECORDS SUMMARY | 2018-07-23 01:48 | XMS REPORT ---
:1985 Author Organization [employer] Care Team Providers Name Role Phone [...] Medications Results No Known Results Summary Purpose [employer] Submission
--- OUTSIDE RECORDS SUMMARY | 2018-07-23 01:48 | XMS REPORT ---
[...] End Status Dosage System Date Date Levothyroxine [facility] 67456398027 25 MCG Orally Active 1 tablet Sodium Once a day on an empty stomach in the morning Prozac [facility] 88506904041 40 MG Orally Active 1 capsule Once a day in the morning Zantac [facility] 09927696025 150 MG Orally Active 1 tablet Once a day at bedtime Adderall [facility] 28476470566 10 MG Orally Active 1 tablet Twice a day in the morning Ambien [facility] 54264571690 10 MG Orally Active 1 tablet Once a day at bedtime as needed Results No Known Results Summary Purpose eClinicalWorks Submission
--- OUTSIDE RECORDS SUMMARY | 2018-07-23 01:48 | XMS REPORT ---
[...] End Status Dosage System Date Date Prozac [facility] 17476780704 40 MG Orally Active 1 capsule Once a day in the morning Duexis [facility] 04084848490 800-26.6 MG November 12December Active 1 tablet Orally Three 2017 21, times a day PRN 2017 pain Ambien ND 54733925845 10 MG Orally Active 1 tablet Once a day at bedtime as needed Adderall [facility] 65730762806 10 MG Orally Active 1 tablet Twice a day in the morning Levothyroxine ND 55439734994 25 MCG Orally Active 1 tablet Sodium Once a day on an empty stomach in the morning Zantac [facility] 36306672272 150 MG Orally Active 1 tablet Once a day at bedtime Results No Known Results Summary Purpose eClinicalWorks Submission
--- OUTSIDE RECORDS SUMMARY | 2018-07-23 01:48 | XMS REPORT ---
:1985 Author Organization [employer] Care Team Providers Name Role Phone Kian [...] Medications Results No Known Results Summary Purpose [employer] Submission
--- OUTSIDE RECORDS SUMMARY | 2018-07-23 01:49 | XMS REPORT ---
[...] End Status Dosage System Date Date Levothyroxine [facility] 99419680663 25 MCG Orally Active 1 tablet Sodium Once a day on an empty stomach in the morning Duexis [facility] 16461318267 800-26.6 MG Active 1 tablet Orally Three times a day PRN pain Prozac [facility] 67924277458 40 MG Orally Active 1 capsule Twice a day in the morning Propranolol HCl ND 82637018517 20 MG Orally Feb 06, Active 1 tablet Twice a day 2017 on an empty stomach Belsomra [facility] 52628487570 10 MG Orally Active 1 tablet Once a day at bedtime as needed Adderall [facility] 37242923865 10 MG Orally Active 1 tablet Twice a day in the morning Zantac [facility] 47494606663 150 MG Orally Active 1 tablet Once a day at bedtime Results No Known Results Summary Purpose eClinicalWorks Submission
--- OUTSIDE RECORDS SUMMARY | 2018-07-23 01:49 | XMS REPORT ---
[...] End Status Dosage System Date Date Levothyroxine [facility] 06085391667 25 MCG Orally Active 1 tablet Sodium Once a day on an empty stomach in the morning Results No Known Results Summary Purpose eClinicalWorks Submission
--- OUTSIDE RECORDS SUMMARY | 2018-07-23 01:49 | XMS REPORT ---
[...] End Status Dosage System Date Date Belsomra [facility] 14979397767 10 MG Orally January 09, Active 1 tablet Once a day 2017 at bedtime as needed Adderall [facility] 55661379171 10 MG Orally Active 1 tablet Twice a day in the morning Zantac [facility] 69873036265 150 MG Orally Active 1 tablet Once a day at bedtime Prozac [facility] 72916387812 40 MG Orally Active 1 capsule Twice a day in the morning Levothyroxine [facility] 50523638131 25 MCG Orally Active 1 tablet Sodium Once a day on an empty stomach in the morning Duexis [facility] 93989853555 800-26.6 MG Active 1 tablet Orally Three times a day PRN pain Ambien [facility] 44459391623 10 MG Orally Inactive 1 tablet Once a day at bedtime as needed Results No Known Results Summary Purpose eClinicalWorks Submission
--- OUTSIDE RECORDS SUMMARY | 2018-07-23 01:49 | XMS REPORT ---
[...] Instructions Start End Status Dosage System Date Zantac [facility] 39196463250 150 MG Orally Active 1 tablet Once a day at bedtime Adderall [facility] 66569874115 10 MG Orally Jul 01, Active 1 tablet Twice a day 2019 in the morning Levothyroxine [facility] 84605658655 25 MCG Orally Active 1 tablet Sodium Once a day on an empty stomach in the morning Duexis [facility] 79958101326 800-26.6 MG Active 1 tablet Orally Three times a day PRN pain Escitalopram ND 61384863486 10 MG Orally Active 1 tablet Oxalate Once a day Belsomra [facility] 63423492340 10 MG Orally Active 1 tablet Once a day at bedtime as needed Propranolol HCl [facility] 91992715138 20 MG Orally Active 1 tablet Twice a day on an empty stomach Results No Known Results Summary Purpose eClinicalWorks Submission
--- OUTSIDE RECORDS SUMMARY | 2018-07-23 01:49 | XMS REPORT ---
[...] System Date Prozac [facility] 80830062924 40 MG Orally Active 1 capsule Twice a day in the morning Levothyroxine [facility] 19158374246 25 MCG Orally Active 1 tablet Sodium Once a day on an empty stomach in the morning Adderall [facility] 32762119699 10 MG Orally Active 1 tablet Twice a day in the morning Propranolol HCl [facility] 93979015700 20 MG Orally Active 1 tablet Twice a day on an empty stomach Belsomra [facility] 08993471365 10 MG Orally Active 1 tablet Once a day at bedtime as needed Zantac [facility] 80717008792 150 MG Orally Active 1 tablet Once a day at bedtime Duexis [facility] 18721008370 800-26.6 MG Active 1 tablet Orally Three times a day PRN pain Results No Known Results Summary Purpose [employer]ClinicalWorks Submission
--- NOTE | 2018-07-23 02:11 | EDPHYS ---
Physician Documentation [facility] Name: Gayla Nova Age: 33 yrs Sex: Female : 1985 Arrival Date: 07/23/2018 Time: 01:50 Bed 5 Private MD: Dar Edwardsh ED Physician Janes Pérez HPI: 07/23 02:02 This 33 yrs old Female presents to ER via Ambulatory with complaints of Stiff rn Neck, Nausea, Blurred Vision. 02:02 The patient or guardian complains of pain. The symptoms are located on the right rn posterior lateral neck. Onset: The symptoms/episode began/occurred last night. Associated signs and symptoms: The patient has no apparent associated signs or symptoms, Pertinent negatives: fever, bladder incontinence, bowel incontinence, numbness, tingling, weakness. The pain does not radiate. Modifying factors: The symptoms are alleviated by remaining still, the symptoms are aggravated by movement. Severity of symptoms: At their worst the symptoms were moderate, in the emergency department the symptoms are unchanged. The patient has experienced similar episodes in the past. 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 NO focal neurological deficits. Reports long history of migraines and thinks neck pain triggered a migraine.. 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 - Social history:: Smoking status: Patient uses tobacco products, smokes one-half pack cigarettes per day. - Ebola Screening: : Patient negative for fever greater than or equal to 101.5 degrees Fahrenheit, and additional compatible Ebola Virus Disease symptoms. - Family history:: not pertinent. - Hospitalizations: : No recent hospitalization is reported. ROS: 02:02 Constitutional: Negative for fever, chills, and weight loss, Eyes: Negative for injury, rn pain, redness, and discharge, Neck: Negative for injury and swelling, Cardiovascular: Negative for chest pain, palpitations, and edema, Respiratory: Negative for shortness of breath, cough, wheezing, and pleuritic chest pain, Abdomen/GI: Negative for abdominal pain, vomiting, diarrhea, and constipation, MS/Extremity: Negative for injury and deformity, Skin: Negative for injury, rash, and discoloration, Neuro: Negative for weakness, numbness, tingling, and seizure. Exam: 02:02 Constitutional: This is a well developed, well nourished patient who is awake, alert, rn and in no acute distress. Walked to room without difficulty Head/Face: Normocephalic, atraumatic. Eyes: Pupils equal round and reactive to light, extra-ocular motions intact. Lids and lashes normal. Conjunctiva and sclera are non-icteric and not injected. Cornea within normal limits. Periorbital areas with no swelling, redness, or edema. ENT: MMM Neck: Trachea midline, no thyromegaly or masses palpated, and no cervical lymphadenopathy. Supple, full range of motion without nuchal rigidity, or vertebral point tenderness. No Meningismus. + painful ROM along right SCM/trapezius with turning to right Skin: Warm, dry with normal turgor. Normal color with no rashes, no lesions, and no evidence of cellulitis. MS/ Extremity: Pulses equal, no cyanosis. Neurovascular intact. Full, normal range of motion. Equal circumference. Neuro: Awake and alert, GCS 15, oriented to person, place, time, and situation. Cranial nerves II-XII grossly intact. Motor strength 5/5 in all extremities. Sensory grossly intact. Cerebellar exam normal. Vital Signs: 02:04 BP 128 / 76; Pulse 81; Resp 18 S; Temp 97.7(O); Pulse Ox 98% on R/A; Weight 99.79 kg jd3 (R); Height 5 ft. 2 in. (157.48 cm) (R); Pain 10/10; 03:27 BP 119 / 73; Pulse 69; Resp 17 S; Pulse Ox 98% on R/A; Pain 3/10; jd3 02:04 Body Mass Index 40.24 (99.79 kg, 157.48 cm) jd3 MDM: 01:52 Patient medically screened. rn 02:02 Differential diagnosis: cervical strain, torticollis, migraine. Data reviewed: vital rn signs, nurses notes. 07/23 02:01 Order name: IV Start; Complete Time: 02:23 rn Administered Medications: 02:24 Drug: Reglan 10 mg Route: IVP; Site: right antecubital; jd3 03:27 Follow up: Response: No adverse reaction jd3 02:24 Drug: Decadron - Dexamethasone 10 mg Route: IVP; Site: right antecubital; jd3 03:27 Follow up: Response: No adverse reaction jd3 02:25 Drug: NS 0.9% 1000 ml Route: IV; Rate: 1000 ml; Site: right antecubital; jd3 03:28 Follow up: Response: No adverse reaction; IV Status: Completed infusion jd3 02:26 Drug: Benadryl 25 mg Route: IVP; Site: right antecubital; jd3 03:28 Follow up: Response: No adverse reaction jd3 Disposition: 07/23/18 02:10 Discharged to Home. Impression: Migraine, Torticollis, Muscle spasm. - Condition is Stable. - Discharge Instructions: Migraine Headache, Acute Torticollis, Adult, Neck Exercises. - Prescriptions for Cyclobenzaprine 10 mg Oral Tablet - take 1 tablet by ORAL route every 8 hours As needed; 30 tablet. Medrol (Adam) 4 mg Oral Tablets, Dose Pack - take 1 tablet by ORAL route as directed - follow package instructions; 1 packet. - Medication Reconciliation Form, Thank You Letter, Antibiotic Education, Prescription Opioid Use form. - Follow up: Private Physician; When: As needed; Reason: Recheck today's complaints, Re-evaluation by your physician. - Problem is new. - Symptoms have improved. Signatures: Janes Pérez MD MD rn Davies, Jonathon, RN RN jblake Corrections: (The following items were deleted from the chart) 03:28 02:10 07/23/2018 02:10 Discharged to Home. Impression: Migraine; Torticollis; Muscle jd3 spasm. Condition is Stable. Discharge Instructions: Migraine Headache, Acute Torticollis, Adult, Neck Exercises. Prescriptions for Cyclobenzaprine 10 mg Oral Tablet - take 1 tablet by ORAL route every 8 hours As needed; 30 tablet, Medrol (Adam) 4 mg Oral Tablets, Dose Pack - take 1 tablet by ORAL route as directed - follow package instructions; 1 packet. and Forms are Medication Reconciliation Form, Thank You Letter, Antibiotic Education, Prescription Opioid Use. Follow up: Private Physician; When: As needed; Reason: Recheck today's complaints, Re-evaluation by your physician. Problem is new. Symptoms have improved. rn
--- NOTE | 2018-07-23 02:11 | ER ---
Nurse's Notes [facility] Name: Gayla Nova Age: 33 yrs Sex: Female : 1985 Arrival Date: 07/23/2018 Time: 01:50 Bed 5 Private MD: Kian Edwards Diagnosis: Migraine;Torticollis;Muscle spasm Presentation: 07/23 01:59 Presenting complaint: Patient states: "I can't turn my head to the right or it hurts jd3 when I do. My head has also started hurting really badly to the point where I am getting nauseous.". Transition of care: patient was not received from another setting of care. Onset of symptoms was July 23, 2018. Risk Assessment: Do you want to hurt yourself or someone else? Patient reports no desire to harm self or others. Initial Sepsis Screen: Does the patient meet any 2 criteria? No. Patient's initial sepsis screen is negative. Does the patient have a suspected source of infection? No. Patient's initial sepsis screen is negative. Care prior to arrival: None. 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 - Social history:: Smoking status: Patient uses tobacco products, smokes one-half pack cigarettes per day. - Ebola Screening: : Patient negative for fever greater than or equal to 101.5 degrees Fahrenheit, and additional compatible Ebola Virus Disease symptoms. - Family history:: not pertinent. - Hospitalizations: : No recent hospitalization is reported. Screenin:06 Abuse screen: Denies threats or abuse. Nutritional screening: No deficits noted. jd3 Tuberculosis screening: No symptoms or risk factors identified. Fall Risk Ambulatory Aid- None/Bed Rest/Nurse Assist (0 pts). Gait- Normal/Bed Rest/Wheelchair (0 pts) Mental Status- Oriented to own ability (0 pts). Total Briseno Fall Scale indicates No Risk (0-24 pts). Assessment: 02:05 General: Appears in no apparent distress. uncomfortable, Behavior is calm, cooperative, jd3 appropriate for age. Pain: Complains of pain in head and neck Quality of pain is described as sharp, throbbing. Neuro: Level of Consciousness is awake, alert, obeys commands, Oriented to person, place, time, situation, Moves all extremities. Full function Gait is steady, Speech is normal, Facial symmetry appears normal, Pupils are PERRLA. Cardiovascular: Capillary refill < 3 seconds Patient's skin is warm and dry. Respiratory: Airway is patent Respiratory effort is even, unlabored, Respiratory pattern is regular, symmetrical. GI: Abdomen is round non-distended, Reports nausea. : No signs and/or symptoms were reported regarding the genitourinary system. EENT: No signs and/or symptoms were reported regarding the EENT system. Derm: Skin is intact, Skin is dry, Skin is normal, Skin temperature is warm. Musculoskeletal: Circulation, motion, and sensation intact. Range of motion: intact in all extremities. 02:42 Reassessment: Patient appears in no apparent distress at this time. Patient and/or jd3 family updated on plan of care and expected duration. Pain level reassessed. Patient is alert, oriented x 3, equal unlabored respirations, skin warm/dry/pink. awaiting IV fluids to infuse before discharge. 03:27 Reassessment: Patient appears in no apparent distress at this time. Patient and/or jd3 family updated on plan of care and expected duration. Pain level reassessed. Patient is alert, oriented x 3, equal unlabored respirations, skin warm/dry/pink. Patient states feeling better. Vital Signs: 02:04 BP 128 / 76; Pulse 81; Resp 18 S; Temp 97.7(O); Pulse Ox 98% on R/A; Weight 99.79 kg jd3 (R); Height 5 ft. 2 in. (157.48 cm) (R); Pain 10/10; 03:27 BP 119 / 73; Pulse 69; Resp 17 S; Pulse Ox 98% on R/A; Pain 3/10; jd3 02:04 Body Mass Index 40.24 (99.79 kg, 157.48 cm) jd3 ED Course: 01:50 Patient arrived in ED. es 01:51 Kian Edwards DO is Private Physician. es 01:52 Janes Pérez MD is Attending Physician. rn 02:02 Triage completed. jd3 02:04 Arm band placed on. jd3 02:06 Gallo Shore RN is Primary Nurse. jd3 02:06 Patient has correct armband on for positive identification. Bed in low position. Call jd3 light in reach. Side rails up X 1. 02:15 Inserted saline lock: 20 gauge in right antecubital area, using aseptic technique. jd3 Blood collected. 02:27 No provider procedures requiring assistance completed. jd3 03:26 IV discontinued, intact, bleeding controlled, No redness/swelling at site. Pressure jd3 dressing applied. Administered Medications: 02:24 Drug: Reglan 10 mg Route: IVP; Site: right antecubital; jd3 03:27 Follow up: Response: No adverse reaction jd3 02:24 Drug: Decadron - Dexamethasone 10 mg Route: IVP; Site: right antecubital; jd3 03:27 Follow up: Response: No adverse reaction jd3 02:25 Drug: NS 0.9% 1000 ml Route: IV; Rate: 1000 ml; Site: right antecubital; jd3 03:28 Follow up: Response: No adverse reaction; IV Status: Completed infusion jd3 02:26 Drug: Benadryl 25 mg Route: IVP; Site: right antecubital; jd3 03:28 Follow up: Response: No adverse reaction jd3 Outcome: 02:10 Discharge ordered by . rn 03:26 Discharged to home ambulatory. jd3 03:26 Condition: stable 03:26 Discharge instructions given to patient, Instructed on discharge instructions, follow up and referral plans. medication usage, Demonstrated understanding of instructions, follow-up care, medications, Prescriptions given X 2. 03:28 Patient left the ED. jd3 Signatures: Joanie Vizcaino Roman, MD MD rn Davies Gallo, RN RN jd3 Corrections: (The following items were deleted from the chart) 03:28 03:27 BP 119 / 73; Pulse 69bpm; Resp 17bpm; Spontaneous; Pulse Ox 98% RA; jd3 jd3
[2018-07-23] MEDS ORDERED: METOCLOPRAMIDE 10 MG/2mL INJ ONE (02:19)
[2018-07-23] MEDS ORDERED: DIPHENHYDRAMINE 50 MG/ML VIAL ONE (02:19)
[2018-07-23] MEDS ORDERED: NA CHLORIDE 0.9% 1,000 ML ONE (02:20)
[2018-07-23] MEDS ORDERED: DEXAMETHASONE 4 MG/ML VIAL ONE (02:20)
== END 2018-07-23 03:28 | disposition home or self-care (01) ==
LOC: ER 01:46
DX: G43.909 Migraine, unspecified, not intractable, without status migrainosus (principal); M43.6 Torticollis; M62.838 Other muscle spasm; Z88.5 Allergy status to narcotic agent; Z88.8 Allergy status to other drugs, medicaments and biological substances
CPT/HCPCS: 96361; 96374; 96375; 99284; J2765; J7030

== ENCOUNTER 2018-07-30 13:59 | Emergency (ER) | payer BC ==
--- OUTSIDE RECORDS SUMMARY | 2018-07-30 14:06 | XMS REPORT ---
[...] Date Prozac [facility] 80244766032 40 MG Orally Active 1 capsule Once a day in the morning Duexis [facility] 42719795251 800-26.6 MG November 12December Active 1 tablet Orally Three 2017 21, times a day PRN 2017 pain Ambien ND 77973047206 10 MG Orally Active 1 tablet Once a day at bedtime as needed Adderall [facility] 04069781780 10 MG Orally Active 1 tablet Twice a day in the morning Levothyroxine ND 60288671524 25 MCG Orally Active 1 tablet Sodium Once a day on an empty stomach in the morning Zantac [facility] 62569083489 150 MG Orally Active 1 tablet Once a day at bedtime Results No Known Results Summary Purpose eClinicalWorks Submission
--- OUTSIDE RECORDS SUMMARY | 2018-07-30 14:06 | XMS REPORT ---
:1985 Author Organization [employer] In Care Team Providers Name Role Phone Kian Ewdards Provider Role Unavailable Allergies No Known Allergies [...] Medications Results No Known Results Summary Purpose [email or web address] In Submission
--- OUTSIDE RECORDS SUMMARY | 2018-07-30 14:06 | XMS REPORT ---
[...] Instructions Start End Date Status Dosage Date [facility] 94757347860 40 MG Orally Active 1 capsule Once a day in the morning Results No Known Results Summary Purpose eClinicalWorks Submission
--- OUTSIDE RECORDS SUMMARY | 2018-07-30 14:06 | XMS REPORT ---
:1985 Author Organization [employer] Care Team Providers Name Role Phone Kian [...] Medications Results No Known Results Summary Purpose [employer] Submission
--- OUTSIDE RECORDS SUMMARY | 2018-07-30 14:06 | XMS REPORT ---
[...] End Status Dosage System Date Date Levothyroxine [facility] 72771881849 25 MCG Orally Active 1 tablet Sodium Once a day on an empty stomach in the morning Prozac [facility] 35702983050 40 MG Orally Active 1 capsule Once a day in the morning Zantac [facility] 16410715931 150 MG Orally Active 1 tablet Once a day at bedtime Adderall [facility] 52554912450 10 MG Orally Active 1 tablet Twice a day in the morning Ambien [facility] 71293698292 10 MG Orally Active 1 tablet Once a day at bedtime as needed Results No Known Results Summary Purpose eClinicalWorks Submission
--- OUTSIDE RECORDS SUMMARY | 2018-07-30 14:07 | XMS REPORT ---
[...] End Status Dosage System Date Date Duexis [facility] 74047127973 800-26.6 MG Active 1 tablet Orally Three times a day PRN pain Prozac [facility] 93327677847 40 MG Orally Active 1 capsule Twice a day in the morning Ambien [facility] 90494989969 10 MG Orally Active 1 tablet Once a day at bedtime as needed Adderall [facility] 57906539119 10 MG Orally Active 1 tablet Twice a day in the morning Levothyroxine [facility] 22215918055 25 MCG Orally Active 1 tablet Sodium Once a day on an empty stomach in the morning Zantac [facility] 20442666938 150 MG Orally Active 1 tablet Once a day at bedtime Results Name Result Date Reference Range Unit Abnormality Flag URINALYSIS AUTO W/O SCOPE (14165) ----NIT neg [id number] ----URO 0.2 20171226 ----PROTEIN neg [id number] ----pH 6.0 20171226 ----BLO 2+ [id number] ----GLUCOSE neg [id number] ----CHARLES neg [id number] ----BILIRUBIN neg [id number] ----KETONES neg [id number] ----SPECIFIC GRAVITY 1.030 20171226 Summary Purpose eClinicalWorks Submission
--- OUTSIDE RECORDS SUMMARY | 2018-07-30 14:07 | XMS REPORT ---
[...] Date End Date Status Dosage Flagyl [facility] 47876015731 500 MG Orally January 01, January 08, Active 1 tablet Twice daily 2017 2017 Results No Known Results Summary Purpose eClinicalWorks Submission
--- OUTSIDE RECORDS SUMMARY | 2018-07-30 14:07 | XMS REPORT ---
[...] Start End Status Dosage System Date Prozac [facility] 64532190595 40 MG Orally Active 1 capsule Twice a day in the morning Levothyroxine [facility] 66062370438 25 MCG Orally Active 1 tablet Sodium Once a day on an empty stomach in the morning Adderall [facility] 50356221198 10 MG Orally Active 1 tablet Twice a day in the morning Propranolol HCl [facility] 89596745307 20 MG Orally Active 1 tablet Twice a day on an empty stomach Belsomra [facility] 38025613896 10 MG Orally Active 1 tablet Once a day at bedtime as needed Zantac [facility] 56603741098 150 MG Orally Active 1 tablet Once a day at bedtime Duexis [facility] 54602161928 800-26.6 MG Active 1 tablet Orally Three times a day PRN pain Results No Known Results Summary Purpose eClinicalWorks Submission
--- OUTSIDE RECORDS SUMMARY | 2018-07-30 14:07 | XMS REPORT ---
[...] Status Dosage System Date Date Belsomra [facility] 33158476382 10 MG Orally January 09, Active 1 tablet Once a day 2017 at bedtime as needed Adderall [facility] 60009821734 10 MG Orally Active 1 tablet Twice a day in the morning Zantac [facility] 46930846239 150 MG Orally Active 1 tablet Once a day at bedtime Prozac [facility] 67230117802 40 MG Orally Active 1 capsule Twice a day in the morning Levothyroxine [facility] 83103618761 25 MCG Orally Active 1 tablet Sodium Once a day on an empty stomach in the morning Duexis [facility] 84064640703 800-26.6 MG Active 1 tablet Orally Three times a day PRN pain Ambien [facility] 14476664585 10 MG Orally Inactive 1 tablet Once a day at bedtime as needed Results No Known Results Summary Purpose eClinicalWorks Submission
--- OUTSIDE RECORDS SUMMARY | 2018-07-30 14:07 | XMS REPORT ---
[...] Status Dosage System Date Date Levothyroxine [facility] 35501268760 25 MCG Orally Active 1 tablet Sodium Once a day on an empty stomach in the morning Duexis [facility] 46810928721 800-26.6 MG Active 1 tablet Orally Three times a day PRN pain Prozac [facility] 72665546728 40 MG Orally Active 1 capsule Twice a day in the morning Propranolol HCl ND 77508327436 20 MG Orally Feb 06, Active 1 tablet Twice a day 2017 on an empty stomach Belsomra [facility] 55053307101 10 MG Orally Active 1 tablet Once a day at bedtime as needed Adderall [facility] 33691463765 10 MG Orally Active 1 tablet Twice a day in the morning Zantac [facility] 85027710695 150 MG Orally Active 1 tablet Once a day at bedtime Results No Known Results Summary Purpose eClinicalWorks Submission
--- OUTSIDE RECORDS SUMMARY | 2018-07-30 14:07 | XMS REPORT ---
[...] Start End Status Dosage System Date Prozac [facility] 76063731785 40 MG Orally Active 1 capsule Twice a day in the morning Levothyroxine [facility] 89675368021 25 MCG Orally Active 1 tablet Sodium Once a day on an empty stomach in the morning Amoxicillin ND 54567255248 500 MG Orally December 10November Active 1 capsule every 8 hrs 2017 Ambien [facility] 77458714426 10 MG Orally Active 1 tablet Once a day at bedtime as needed Adderall [facility] 44316264065 10 MG Orally Active 1 tablet Twice a day in the morning Zantac [facility] 59173125395 150 MG Orally Active 1 tablet Once a day at bedtime Duexis [facility] 12883429710 800-26.6 MG Active 1 tablet Orally Three times a day PRN pain Results No Known Results Summary Purpose eClinicalWorks Submission
--- OUTSIDE RECORDS SUMMARY | 2018-07-30 14:07 | XMS REPORT ---
[...] Start End Status Dosage System Date Zantac [facility] 33931476213 150 MG Orally Active 1 tablet Once a day at bedtime Adderall [facility] 92412816370 10 MG Orally Jul 01, Active 1 tablet Twice a day 2019 in the morning Levothyroxine [facility] 83412404868 25 MCG Orally Active 1 tablet Sodium Once a day on an empty stomach in the morning Duexis [facility] 17919494017 800-26.6 MG Active 1 tablet Orally Three times a day PRN pain Escitalopram ND 31200510193 10 MG Orally Active 1 tablet Oxalate Once a day Belsomra [facility] 16008628771 10 MG Orally Active 1 tablet Once a day at bedtime as needed Propranolol HCl [facility] 72232732502 20 MG Orally Active 1 tablet Twice a day on an empty stomach Results No Known Results Summary Purpose eClinicalWorks Submission
--- OUTSIDE RECORDS SUMMARY | 2018-07-30 14:07 | XMS REPORT ---
[...] End Status Dosage System Date Date Levothyroxine [facility] 90190800873 25 MCG Orally Active 1 tablet Sodium Once a day on an empty stomach in the morning Results No Known Results Summary Purpose eClinicalWorks Submission
--- OUTSIDE RECORDS SUMMARY | 2018-07-30 14:07 | XMS REPORT ---
:1985 Author Organization [employer] Care Team Providers Name Role Phone Kian [...] Medications Results No Known Results Summary Purpose [employer] Submission
--- NOTE | 2018-07-30 14:58 | RAD REPORT ---
EXAM DESCRIPTION: CT - [id number] - 07/30/2018 2:49 pm CLINICAL HISTORY: Trauma, head and neck injury. PAIN COMPARISON: Sinus Wo Cont dated 01/28/2018 TECHNIQUE: Axial 5 mm thick images of the head were obtained. Axial 2 mm thick images of the cervical spine were obtained with sagittal and coronal reconstruction images generated and reviewed. All CT scans are performed using dose optimization technique as appropriate and may include automated exposure control or mA/KV adjustment according to patient size. FINDINGS: CT HEAD WITHOUT CONTRAST: No acute hemorrhage, hydrocephalus or extra-axial collection is identified.No areas of brain edema or midline shift. The paranasal sinuses and mastoids are clear.The calvarium is intact. CT CERVICAL SPINE WITHOUT CONTRAST: No fracture or subluxation.No prevertebral soft tissues swelling is identified. IMPRESSION: No acute intracranial or cervical spine findings.
--- NOTE | 2018-07-30 15:09 | EDPHYS ---
Physician Documentation [facility] Name: Gayla Nova Age: 33 yrs Sex: Female : 1985 Arrival Date: 07/30/2018 Time: 14:01 Bed 11 Private MD: Dar Edwardsh ED Physician Janes Pérez HPI: 07/30 15:09 This 33 yrs old Female presents to ER via Ambulatory with complaints of Stiff snw Neck. 15:09 The patient or guardian complains of decreased range of motion, pain, spasm, snw tenderness. The symptoms are located on the left lateral neck. Onset: The symptoms/episode began/occurred suddenly, this morning. Context: The problem was sustained at home, The neck injury/problem resulted from stretching. Associated signs and symptoms: The patient has no apparent associated signs or symptoms. Location: left trapezius and left scapular area. Modifying factors: The symptoms are alleviated by nothing. the symptoms are aggravated by movement. Severity of symptoms: At their worst the symptoms were moderate, severe. The patient has not experienced similar symptoms in the past. It is unknown whether or not the patient has recently seen a physician. 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 - Social history:: Smoking status: Patient uses tobacco products, smokes one-half pack cigarettes per day. - Ebola Screening: : No symptoms or risks identified at this time. ROS: 15:05 Constitutional: Negative for fever, chills, and weight loss, Eyes: Negative for injury, snw pain, redness, and discharge, ENT: Negative for injury, pain, and discharge, Cardiovascular: Negative for chest pain, palpitations, and edema, Respiratory: Negative for shortness of breath, cough, wheezing, and pleuritic chest pain, Abdomen/GI: Negative for abdominal pain, nausea, vomiting, diarrhea, and constipation, Back: Negative for injury and pain, : Negative for injury, bleeding, discharge, and swelling, MS/Extremity: Negative for injury and deformity, Skin: Negative for injury, rash, and discoloration, Neuro: Negative for headache, weakness, numbness, tingling, and seizure. 15:05 Neck: Positive for pain with movement, pain at rest, stiffness, tenderness, of the left submandibular area and left sternocleidomastoid, left lateral neck. Exam: 15:05 Head/Face: Normocephalic, atraumatic. Eyes: Pupils equal round and reactive to light, snw extra-ocular motions intact. Lids and lashes normal. Conjunctiva and sclera are non-icteric and not injected. Cornea within normal limits. Periorbital areas with no swelling, redness, or edema. ENT: Nares patent. No nasal discharge, no septal abnormalities noted. Tympanic membranes are normal and external auditory canals are clear. Oropharynx with no redness, swelling, or masses, exudates, or evidence of obstruction, uvula midline. Mucous membranes moist. Chest/axilla: Normal chest wall appearance and motion. Nontender with no deformity. No lesions are appreciated. Cardiovascular: Regular rate and rhythm with a normal S1 and S2. No gallops, murmurs, or rubs. Normal PMI, no JVD. No pulse deficits. Respiratory: Lungs have equal breath sounds bilaterally, clear to auscultation and percussion. No rales, rhonchi or wheezes noted. No increased work of breathing, no retractions or nasal flaring. Abdomen/GI: Soft, non-tender, with normal bowel sounds. No distension or tympany. No guarding or rebound. No evidence of tenderness throughout. Back: No spinal tenderness. No costovertebral tenderness. Full range of motion. Skin: Warm, dry with normal turgor. Normal color with no rashes, no lesions, and no evidence of cellulitis. MS/ Extremity: Pulses equal, no cyanosis. Neurovascular intact. Full, normal range of motion. Neuro: Awake and alert, GCS 15, oriented to person, place, time, and situation. Cranial nerves II-XII grossly intact. Motor strength 5/5 in all extremities. Sensory grossly intact. Cerebellar exam normal. Normal gait. Psych: Awake, alert, with orientation to person, place and time. Behavior, mood, and affect are within normal limits. 15:05 Constitutional: The patient appears alert, awake, anxious, uncomfortable, crying 15:05 Neck: External neck: tenderness, that is moderate, left lateral neck, ROM/movement: pain, that is moderate, that is severe, with rotation to the right, holding head to right, left sided tenderness. limited range of motion, that is moderate, when rotating to the right, with flexion, with extension, Meningeal signs: are not present, nuchal rigidity, is not appreciated. Vital Signs: 14:15 BP 120 / 72; Pulse 97; Resp 18 S; Temp 97.5(TE); Pulse Ox 98% on R/A; Weight 99.79 kg aa5 (R); Height 5 ft. 2 in. (157.48 cm) (R); Pain 10/10; 14:15 Body Mass Index 40.24 (99.79 kg, 157.48 cm) aa5 MDM: 14:17 Patient medically screened. snw 15:09 Data reviewed: vital signs, nurses notes. Data interpreted: Pulse oximetry: on room air snw is 98 %. Interpretation: normal. Counseling: I had a detailed discussion with the patient and/or guardian regarding: the historical points, exam findings, and any diagnostic results supporting the discharge/admit diagnosis, radiology results, the need for outpatient follow up, to return to the emergency department if symptoms worsen or persist or if there are any questions or concerns that arise at home. Special discussion: Based on the history and exam findings, there is no indication for further emergent testing or inpatient evaluation. I discussed with the patient/guardian the need to see the primary care provider for further evaluation of the symptoms. 02 14:35 Order name: CT Head C Spine; Complete Time: 15:05 snw 02 14:35 Order name: Urine Test (obtain specimen); Complete Time: 17:26 snw Administered Medications: 15:23 Drug: TORadol 60 mg Route: IM; Site: Ventrogluteal LEFT; iw 15:40 Follow up: Response: No adverse reaction aa5 15:23 Drug: Flexeril 10 mg Route: PO; iw 15:40 Follow up: Response: No adverse reaction aa5 15:23 Drug: fentaNYL (PF) 50 mcg Route: IM; Site: left deltoid; iw 15:40 Follow up: Response: No adverse reaction aa5 Disposition: 16:39 Co-signature as Attending Physician, Janes Pérez MD. rn Disposition: 07/30/18 15:08 Discharged to Home. Impression: Radiculopathy, cervical region, Muscle spasm. - Condition is Stable. - Discharge Instructions: Cervical Radiculopathy, Muscle Cramps and Spasms, Cervical Sprain, Cryotherapy, Heat Therapy, Radicular Pain. - Prescriptions for Diclofenac Sodium 75 mg Oral Tablet Sustained Release - take 1 tablet by ORAL route 2 times per day; 30 tablet. orphenadrine citrate 100 mg Oral Tablet Sustained Release - take 1 tablet by ORAL route 2 times per day As needed; 20 tablet. - Work release form, Medication Reconciliation Form, Thank You Letter, Antibiotic Education, Prescription Opioid Use form. - Follow up: Kian Edwards DO; When: 2 - 3 days; Reason: Recheck today's complaints, Continuance of care, Re-evaluation by your physician. Follow up: Emergency Department; When: As needed; Reason: Worsening of condition. Signatures: Dispatcher [employer] EDMS Tiny Zheng, HERNANDEZ-C VANSTONE MACHINE OPERATOR-Csnw Sona Strong, LISETTE RN Janes Herrmann MD MD rn Calderon, Audri, RN RN aa5 Corrections: (The following items were deleted from the chart) 15:50 15:08 07/30/2018 15:08 Discharged to Home. Impression: Radiculopathy, cervical region; iw Muscle spasm. Condition is Stable. Forms are Medication Reconciliation Form, Thank You Letter, Antibiotic Education, Prescription Opioid Use. Follow up: Kian Edwards; When: 2 - 3 days; Reason: Recheck today's complaints, Continuance of care, Re-evaluation by your physician. Follow up: Emergency Department; When: As needed; Reason: Worsening of condition. snw
--- NOTE | 2018-07-30 15:09 | ER ---
Nurse's Notes [facility] Name: Gayla Nova Age: 33 yrs Sex: Female : 1985 Arrival Date: 07/30/2018 Time: 14:01 Bed 11 Private MD: Kian Edwards Diagnosis: Radiculopathy, cervical region;Muscle spasm Presentation: 07/30 14:13 Presenting complaint: Patient states: "I was getting dressed and all of a sudden I got aa5 a pain on the left side of my neck and upper back". pt c/o pain to left side of neck and left scapular area radiating down posterior left arm. Transition of care: patient was not received from another setting of care. Onset of symptoms was July 30, 2018. Risk Assessment: Do you want to hurt yourself or someone else? Patient reports no desire to harm self or others. Initial Sepsis Screen: Does the patient meet any 2 criteria? No. Patient's initial sepsis screen is negative. Does the patient have a suspected source of infection? No. Patient's initial sepsis screen is negative. Care prior to arrival: None. 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 - Social history:: Smoking status: Patient uses tobacco products, smokes one-half pack cigarettes per day. - Ebola Screening: : No symptoms or risks identified at this time. Screenin:20 Abuse screen: Denies threats or abuse. Nutritional screening: No deficits noted. aa5 Tuberculosis screening: No symptoms or risk factors identified. Fall Risk None identified. Assessment: 14:30 General: Appears uncomfortable, Behavior is calm, cooperative. Pain: Complains of pain aa5 in left side of neck and left scapular area Pain radiates to palmar aspect of left arm Noted to be resistant to movement. Neuro: Level of Consciousness is awake, alert, obeys commands, Oriented to person, place, time, situation. Cardiovascular: No deficits noted. Respiratory: Airway is patent Respiratory effort is even, unlabored, Respiratory pattern is regular, symmetrical. GI: No signs and/or symptoms were reported involving the gastrointestinal system. : No signs and/or symptoms were reported regarding the genitourinary system. EENT: No signs and/or symptoms were reported regarding the EENT system. Derm: Skin is pink, warm \\T\\ dry. Musculoskeletal: Range of motion: intact in all extremities. Vital Signs: 14:15 BP 120 / 72; Pulse 97; Resp 18 S; Temp 97.5(TE); Pulse Ox 98% on R/A; Weight 99.79 kg aa5 (R); Height 5 ft. 2 in. (157.48 cm) (R); Pain 10/10; 14:15 Body Mass Index 40.24 (99.79 kg, 157.48 cm) aa5 ED Course: 14:01 Patient arrived in ED. mr 14:01 Kian Edwards DO is Private Physician. mr 14:14 Triage completed. aa5 14:14 Arm band placed on. aa5 14:14 Patient has correct armband on for positive identification. aa5 14:15 Valorie Scales, RN is Primary Nurse. aa5 14:17 Tiny Zheng FNP-C is PHCP. snw 14:17 Janes Pérez MD is Attending Physician. snw 14:47 CT completed. Patient tolerated procedure well. Patient moved to CT via wheelchair. vr Patient moved back from CT. 14:50 CT Head C Spine In Process Unspecified. EDMS 15:08 Kian Edwards DO is Referral Physician. snw 15:40 No provider procedures requiring assistance completed. Patient did not have IV access aa5 during this emergency room visit. Administered Medications: 15:23 Drug: TORadol 60 mg Route: IM; Site: Ventrogluteal LEFT; iw 15:40 Follow up: Response: No adverse reaction aa5 15:23 Drug: Flexeril 10 mg Route: PO; iw 15:40 Follow up: Response: No adverse reaction aa5 15:23 Drug: fentaNYL (PF) 50 mcg Route: IM; Site: left deltoid; iw 15:40 Follow up: Response: No adverse reaction aa5 Outcome: 15:08 Discharge ordered by MD. rogers 15:40 Discharged to home ambulatory. aa5 15:40 Condition: stable 15:40 Discharge instructions given to patient, Instructed on discharge instructions, follow up and referral plans. medication usage, Demonstrated understanding of instructions, follow-up care, medications, Prescriptions given X 2. 15:50 Patient left the ED. iw Signatures: Dispatcher [employer] EDMS Tiny Zheng, HERNANDEZ-C PROTOZOOLOGIST-Edna Swapna Eckert Sona Strong, RN RN Valorie Scales RN RN [email or web address] Krystle Hansen vr Corrections: (The following items were deleted from the chart) 14:47 14:[address] via wheelchair. Patient moved to radiology vr vr 14:47 14:44 CT completed. Patient tolerated procedure well vr vr 17:29 16:00 No provider procedures requiring assistance completed. aa5 aa5 17:29 16:00 Patient did not have IV access during this emergency room visit. aa5 aa5
[2018-07-30] MEDS ORDERED: FENTANYL CITR 100 MCG/2 ML ONE (15:27)
[2018-07-30] MEDS ORDERED: KETOROLAC 30 MG/ML INJ ONE (15:27)
[2018-07-30] MEDS ORDERED: CYCLOBENZAPRINE 10 MG TAB ONE (15:27)
== END 2018-07-30 15:50 | disposition home or self-care (01) ==
LOC: ER 13:59
DX: M54.12 Radiculopathy, cervical region (principal); F17.210 Nicotine dependence, cigarettes, uncomplicated; Z88.5 Allergy status to narcotic agent; Z88.8 Allergy status to other drugs, medicaments and biological substances
CPT/HCPCS: 70450; 72125; 96372; 99284; J3010

== ENCOUNTER 2020-11-24 03:27 | Emergency (ER) | payer BC ==
--- OUTSIDE RECORDS SUMMARY | 2020-11-24 03:31 | XMS REPORT | Continuity of Care Document ---
:1985 Author Organization [facility] t Address [address] [place] [address] Care Team Providers Name Role Phone Elian Rodríguez Attending Clinician Provider, Urgent Care Attending Clinician Unavailable Lab, Fam Pob I Attending Clinician Unavailable Edward Gudino DO Attending Clinician Singer BILL Attending Clinician Doctor Unassigned, Name Attending Clinician Unavailable Krish Palmer Attending Clinician Only, Test Attending Clinician Unavailable Problems This patient has no known problems. Allergies, Adverse Reactions, Alerts Allergy Allergy Status Severity Reaction(s) Onset Inactive Treating Comm ents Source Name Type Date Date Clinician Topamax Adverse Active mouth break [facility] tramadol Adverse Active more [facility] Reaction anxious/no [facility] ent Clinics Sudafed Adverse Active makes heart [facility] Reaction race [facility] Medications Ordered Filled Start Stop Current Ordering Indication Dosage Frequency Signature Comments Components Source Medication Medication Date Date Medication? Clinician (SIG) Name Name Amphetamine Amphetamine 2019-06 Yes Kian [address] [facility] -Dextroamph -Dextroamph 0-12 Edwards [facility] etamine etamine 00:00: [facility] 00 l [facility] Clinics Adderall Adderall Yes Kian [address] [facility] 9-15 Edwards in the [facility] - 00:00: morning [facility] 00 l [facility] Clinics HydrOXYzine HydrOXYzine Yes Kian [address] [facility] Pamoate Pamoate 9-15 Edwards as needed [place] - 00:00: Memoria 00 l [facility] ent Clinics Gabapentin Gabapentin Yes Kian [address] [facility] 3-17 Edwards once [facility] - 00:00: today, Memoria 00 then 1 l capsule [facility] twice ent daily Clinics Valacyclovi Valacyclovi Yes Kian [address] [facility] r HCl r HCl 3-13 Edwards [facility] - 00:[facility]: [facility]oria 00 l [facility] ent Clinics Levothyroxi Levothyroxi Yes Kian [address] [facility] ne Sodium ne Sodium Edwards on an [place] - empty Memoria stomach in l the [facility] morning ent Clinics Propranolol Propranolol Yes Kian [address] [facility] HCl HCl Edwards on an [facility] - empty Memoria stomach l [facility] ent Clinics Duexis Duexis Yes [facility]ian [facility] tablet [facility] Belsomra Belsomra Yes Kian [address] [facility] at bedtime [facility] - as needed [facility]ics Zantac Zantac Yes Kian [facility] bed[facility] Cetirizine Cetirizine Yes Kian [address] [facility] HCl HCl Edwards [facility] Escitalopra Escitalopra Yes Kian [address] [facility] m Oxalate m Oxalate Edwards [facility] Clinics Immunizations Ordered Filled Immunization Date Status Comments Sourc e Immunization Name Name TDAP- Boostrix TDAP- Boostrix 2018-08-[address] [facility] 00[facility]00 [facility] Procedures This patient has no known procedures. Encounters Start End Encounter Admission Attending Care Care Encounter Source Date/Time Date/Time Type Type Clinicians Facility Department ID 2020-10-24 2020-10-24 Outpatient [facility] [id number] [facility] 2020-10-04 2020-10-04 Refill Patrick [facility] [id number] 00:00:00 00:00:00 Shereen [facility] [id number] [place] [id number] Professio [phone] nal [facility] Office Building One 2020-09-28 2020-09-28 Urgent Provider, [facility] [id number] 15:32:06 15:52:06 Care Ang [facility] [id number] Care [place] [id number] Professio [phone] [place] [address] Office [address] 2020-09-27 2020-09-[address] [facility] [id number] [facility] 2020-09-21 2020-09-21 Laboratory Lab, [facility] [id number] 11:15:55 11:35:55 Only Fam Pob I Health [id number] [place] [id number] Professio [phone] nal [facility] Office Building One 2020-09-13 2020-09-13 Patient Shahab, [facility] [id number] 00:00:00 00:00:00 Outreach [facility] PRIMARY [id number] [facility] [id number] PAVILLION [id number] [id number] 2020-09-04 2020-09-04 Outpatient [facility] [id number] [facility] 2020-08-29 2020-08-29 Outpatient [facility] [id number] [facility] 2020-08-03 2020-08-03 [facility] [id number] [facility] 2020-08-03 2020-08-03 Outpatient [facility] [id number] [facility] 2020-06-30 2020-06-30 Outpatient [facility] [id number] [facility] 2020-06-30 2020-06-30 Outpatient [facility] [id number] [facility] 2020-06-15 2020-06-15 Outpatient [facility] [id number] [facility] 2020-06-09 2020-06-09 Outpatient [facility] [id number] [facility] 2020-06-08 2020-06-08 Outpatient [facility] [id number] [facility] 2020-06-03 2020-06-03 Emergency Levin, [facility] [id number] 17:19:00 17:57:00 José Wallace [id number] [place] [id number] [place] [id number] 2020-06-03 2020-06-03 Orders Doctor PIERO [id number] 00:00:00 00:00:00 Only Unassigned, CHARLEEN [id number] [facility] [id number] 2020-05-31 2020-05-31 Outpatient [facility] [id number] [facility] 2020-05-30 2020-05-30 Laboratory Lab, Adc [facility] [id number] 15:47:38 16:07:38 Only Fam Pob I Health [id number] [place] [id number] [facility] [phone] [facility] 044 Office Building One 2020-05-30 2020-05-30 Outpatient [facility] [id number] [facility] 2020-05-23 2020-05-23 Outpatient [facility] [id number] [facility] 2020-03-09 2020-03-09 Outpatient [facility] [id number] [facility] 2020-03-08 2020-03-08 [facility] [id number] [facility] 14:40:00 14:40:00 t Antares [facility] s - My [employer] [facility] Medicine l Medicine [facility] ent Clinics 2020-02-25 2020-02-25 Emergency Judd, [facility] [id number] 21:47:00 22:45:00 Yessi Rutherford [place] [id number] [place] [id number] [place] [id number] 2019-12-30 2020-01-01 Laboratory Only, Dic [facility] [id number] 15:11:12 16:50:00 Only Test HEALTH [id number] [facility] [id number] [facility] [id number] [place] [address] CLINIC 2019-11-26 2019-11-26 [facility] [id number] 11:15:00 11:15:00 t [facility] - [employer] [facility] Medicine l Medicine Outpati ent Clinics 2019-10-14 2019-10-14 [facility] [id number] 14:30:00 14:30:00 t An[email or web address] [facility] Medicine l Medicine Outpati ent Clinics 2019-10-08 2019-10-08 [facility] [id number] 08:18:00 08:18:00 t [facility] l Medicine Outpati ent Clinics 2019-10-06 2019-10-06 [facility] [id number] 09:40:00 09:40:00 t [facility] Medicine Outpati ent Clinics 2019-10-05 2019-10-05 [facility] [id number] 14:37:00 14:37:00 t Orlinda LedgerX s - My [employer]Shoe [facility] Medicine l Medicine Outpati ent Clinics 2019-09-07 2019-09-07 [facility] [id number] [facility] 15:10:00 15:10:00 t Orlinda LedgerX s - My eShoe [facility] l Medicine Outpati ent Clinics 2019-09-07 2019-09-07 [facility] [id number] 09:56:00 09:56:00 t Orlinda LedgerX s - My eShoe [facility] Medicine Outpati ent Clinics 2019-09-04 2019-09-04 [facility] [id number] [facility] 09:15:00 09:15:00 t Orlinda LedgerX s [email or web address] [facility] l Medicine Outpati ent Clinics 2019-08-28 2019-08-28 [facility] [id number] [facility] 10:30:00 10:30:00 t An[email or web address] [facility] l Medicine Outpati ent Clinics 2019-07-31 2019-07-31 [facility] [id number] 09:40:00 09:40:00 t [facility] l Medicine Outpati ent Clinics 2019-06-16 2019-06-16 [facility] [id number] 08:00:00 08:00:00 t Orlinda LedgerX s [email or web address] [facility] l Medicine Outpati ent Clinics 2019-05-05 2019-05-05 [facility] [id number] 11:45:00 11:45:00 t Orlinda LedgerX s [email or web address] [facility] l Medicine Outpati ent Clinics 2019-04-29 2019-04-29 [facility] [id number] [facility] 08:03:00 08:03:[address] Luke s - Drive [facility] Medicine l Medicine Outpati ent Clinics 2019-03-31 2019-03-31 [facility] [id number] 10:49:00 10:49:[address] Luke [facility] - Drive [facility] Medicine l Medicine Outpati ent Clinics 2019-03-25 2019-03-25 [facility] [id number] 10:56:00 10:56:[address] Luke [facility] - Drive [facility] Medicine l Medicine Outpati ent Clinics 2019-03-24 2019-03-24 [facility] [id number] [facility] 16:12:00 16:12:[address] Luke [facility] - Drive [facility] l Medicine Outpati ent Clinics 2019-03-23 2019-03-23 [facility] [id number] 09:00:00 09:00:00 t Orlinda Orlinda [employer] Luke [facility] - Drive [facility] Medicine Outpati ent Clinics 2019-02-10 2019-02-10 [facility] [id number] 14:18:00 14:18:00 t Orlinda Orlinda [employer] [facility] - Drive [facility] Medicine l Medicine Outpati ent Clinics 2018-10-14 2018-10-14 [facility] [id number] [facility] 08:30:00 08:30:00 t Orlinda Orlinda [employer]hoe [facility] - Drive [facility] Medicine l Medicine Outpati ent Clinics 2018-10-02 2018-10-02 [facility] [id number] 10:38:00 10:38:[address] Luke [facility] - Drive [facility] Medicine l Medicine Outpati ent Clinics 2018-09-24 2018-09-24 [facility] [id number] [facility] 08:15:00 08:15:[address] Luke [facility] - Drive [facility] l Medicine Outpati ent Clinics 2018-08-13 2018-08-13 [facility] [id number] [facility] 08:45:00 08:45:[address] Luke [facility] - Drive [facility] Medicine l Medicine Outpati ent Clinics 2018-07-01 2018-07-01 [facility] [id number] [facility] 08:15:00 08:15:[address] Luke [facility] - Drive [facility] Medicine Medicine Outpati ent Clinics 2018-03-26 2018-03-26 [facility] [id number] [facility] 08:30:00 08:30:[address] Luke s - Drive [facility] Medicine Outpati ent Clinics 2018-02-06 2018-02-06 [facility] [id number] [facility] 15:30:00 15:30:[address] Luke s - Drive [facility] Medicine Medicine Outpati ent Clinics 2018-01-24 2018-01-24 [facility] [id number] [facility] 09:21:00 09:21:[address] Luke s - Drive [facility] Medicine Outpati ent Clinics 2018-01-21 2018-01-21 [facility] [id number] [facility] 14:07:00 14:07:[address] Luke s - Drive [facility] Medicine Outpati ent Clinics 2018-01-15 2018-01-15 [facility] [id number] 13:30:00 13:30:[address] Luke s - Drive [facility] Medicine Outpati ent Clinics 2018-01-09 2018-01-09 [facility] [id number] [facility] 15:45:00 15:45:[address] Luke [facility] - Drive [facility] Medicine Outpati ent Clinics 2018-01-08 2018-01-08 [facility] [id number] 08:27:00 08:27:00 [facility] 2018-01-01 2018-01-01 [facility] [id number] [facility] 15:35:00 15:35:00 [facility] Out[facility] Clinics 2018-01-01 2018-01-01 [facility] [id number] [facility] 15:34:00 15:34:00 t [facility] Outpat[facility] ent Clinics 2017-12-26 2017-12-26 [facility] [id number] 15:15:00 15:15:00 t [facility] Outpati ent Clinics 2017-12-10 2017-12-10 [facility] [id number] 15:45:00 15:45:[address] Luke s - Drive [facility] l Medicine Outpati ent Clinics 2017-11-19 2017-11-19 [facility] [id number] 10:09:00 10:09:[address] Luke s - Drive [facility] Medicine l Medicine Outpati ent Clinics 2017-11-12 2017-11-12 [facility] [id number] 13:00:00 13:00:[address] Luke s - Drive [facility] Medicine l Medicine Outpati ent Clinics 2017-10-25 2017-10-25 [facility] [id number] 15:04:00 15:04:[address] Luke s - Drive [facility] l Medicine Outpati ent Clinics 2017-10-15 2017-10-15 [facility] [id number] 13:54:00 13:54:[address] Luke s - Drive [facility] Medicine l Medicine Outpati ent Clinics 2017-10-14 2017-10-14 [facility] [id number] 11:11:00 11:11:[address] Luke s - Drive [facility] Medicine l Medicine Outpati ent Clinics 2017-10-01 2017-10-01 [facility] [id number] 08:52:00 08:52:[address] Luke s - Drive [facility] Medicine l Medicine Outpati ent Clinics 2017-09-18 2017-09-18 [facility] [id number] 13:00:00 13:00:[address] Luke [facility] - Drive [facility] Medicine Medicine Outpati ent Clinics Results This patient has no known results.
[2020-11-24] MEDS ORDERED: IBUPROFEN 400 MG TAB ONE (04:04)
[2020-11-24 05:30] LABS: SARS-COV-2 RT PCR NEGATIVE (NEGATIVE)
--- NOTE | 2020-11-24 05:40 | ER ---
Nurse's Notes [facility] Name: Gayla Nova Age: 35 yrs Sex: Female : 1985 Arrival Date: 11/24/2020 Time: 03:29 Bed 20 Private MD: Kian Edwards Diagnosis: Acute tonsillitis Presentation: 11/24 03:32 Chief complaint: Patient states: my throat is hurting so bad started yesterday that I rr5 am having hard time to swallow and feels so cold. denies cough,or fever. Coronavirus screen: sore throat, Client presents with at least one sign or symptom that may indicate coronavirus-19. Standard/surgical mask placed on the client. Provider contacted for isolation considerations. Ebola Screen: Patient negative for fever greater than or equal to 101.5 degrees Fahrenheit, and additional compatible Ebola Virus Disease symptoms Patient denies exposure to infectious person. Patient denies travel to an Ebola-affected area in the 21 days before illness onset. Initial Sepsis Screen: Does the patient meet any 2 criteria? HR > 90 bpm. Does the patient have a suspected source of infection? Yes: Productive cough/pneumonia. Risk Assessment: Do you want to hurt yourself or someone else? Patient reports no desire to harm self or others. Onset of symptoms was November 23, 2020. 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 - Social history:: Smoking status: Patient reports the use of cigarette tobacco products, smokes one pack cigarettes per day. Patient/guardian denies using alcohol, street drugs. - Family history:: not pertinent. - Hospitalizations: : No recent hospitalization is reported. Screenin:51 Abuse screen: Denies threats or abuse. Denies injuries from another. Nutritional rr5 screening: No deficits noted. Tuberculosis screening: No symptoms or risk factors identified. Fall Risk None identified. Total Briseno Fall Scale indicates No Risk (0-24 pts). Assessment: 03:51 General: Appears in no apparent distress. Behavior is calm, cooperative, appropriate rr5 for age. Pain: Complains of pain in throat and neck Pain currently is 10 out of 10 on a pain scale. Quality of pain is described as aching, Pain began gradually, Is intermittent. Neuro: Level of Consciousness is awake, alert, obeys commands, Oriented to person, place, time. Cardiovascular: Capillary refill < 3 seconds Patient's skin is warm and dry. Respiratory: Airway is patent Respiratory effort is even, unlabored, Respiratory pattern is regular, symmetrical, EENT: Throat has enlarged tonsils. Derm: Skin is intact, is healthy with good turgor, Skin temperature is warm. Musculoskeletal: Capillary refill < 3 seconds. 05:05 Reassessment: Patient appears in no apparent distress at this time. awaiting for rr5 results, resting eyes closed breathing spontaneously at room air. 05:46 Reassessment: Patient appears in no apparent distress at this time. Patient is alert, rr5 oriented x 3, equal unlabored respirations, skin warm/dry/pink. discharge instruction given and explained without complaints made. Vital Signs: 03:32 BP 128 / 73; Pulse 104; Resp 19; Temp 99.5; Pulse Ox 98% ; Weight 81.65 kg; Height 5 rr5 ft. 2 in. (157.48 cm); Pain 10/10; 05:27 BP 121 / 70; Pulse 95; Resp 16; Pulse Ox 98% ; rr5 05:45 BP 123 / 78; Pulse 90; Resp 19; Temp 99; Pulse Ox 100% ; rr5 03:32 Body Mass Index 32.92 (81.65 kg, 157.48 cm) rr5 ED Course: 03:29 Patient arrived in ED. es 03:30 Kian Edwards DO is Private Physician. es 03:30 Teo Garcia, LISETTE is Primary Nurse. rr5 03:30 Janes Pérez MD is Attending Physician. rn 03:35 Triage completed. rr5 03:52 Patient has correct armband on for positive identification. Bed in low position. Call rr5 light in reach. Pulse ox on. NIBP on. 03:52 Arm band placed on right wrist. rr5 03:52 COVID swab sent to lab. Flu and/or RSV swab sent to lab. Strep swab sent to lab. rr5 05:46 No provider procedures requiring assistance completed. Patient did not have IV access rr5 during this emergency room visit. Administered Medications: 03:50 Drug: Motrin (ibuprofen) 800 mg Route: PO; rr5 04:50 Follow up: Response: No adverse reaction rr5 Outcome: 05:39 Discharge ordered by . rn 05:46 Discharged to home ambulatory. rr5 05:46 Condition: stable 05:46 Discharge instructions given to patient, Instructed on discharge instructions, follow up and referral plans. medication usage, Demonstrated understanding of instructions, follow-up care, medications, Prescriptions given X 1. 05:47 Patient left the ED. rr5 Signatures: Joanie Vizcaino Roman, MD MD rn Roque, Raymond, RN RN rr5
--- NOTE | 2020-11-24 05:40 | EDPHYS ---
Physician Documentation [facility] Name: Gayla Nova Age: 35 yrs Sex: Female : 1985 Arrival Date: 11/24/2020 Time: 03:29 Bed 20 Private MD: Dar Edwardsh ED Physician Janes Pérez HPI: 11/24 03:42 This 35 yrs old Female presents to ER via Ambulatory with complaints of Sore rn Throat, whole body hurt. 03:42 The patient presents with sore throat. The patient describes throat pain as burning, rn raw. Onset: The symptoms/episode began/occurred 10 hour(s) ago. Severity of symptoms: At their worst the symptoms were mild, in the emergency department the symptoms are unchanged. Modifying factors: The symptoms are alleviated by nothing, the symptoms are aggravated by swallowing, Patient's oral intake status: good. Associated signs and symptoms: Pertinent positives: chills, headache, Sore throat Pertinent negatives chest pain, cough, diarrhea. The patient has not experienced similar symptoms in the past. The patient has not recently seen a physician. No known sick contacts. 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 + fever/chills/sore throat/myalgias. . 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 - Social history:: Smoking status: Patient reports the use of cigarette tobacco products, smokes one pack cigarettes per day. Patient/guardian denies using alcohol, street drugs. - Family history:: not pertinent. - Hospitalizations: : No recent hospitalization is reported. 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 Exam: 03:42 Constitutional: This is a well developed, well nourished patient who is awake, alert, rn and in no acute distress. Ambulatory to room without difficulty or assistance. Head/Face: Normocephalic, atraumatic. Eyes: Periorbital areas with no swelling, redness, or edema. 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 Skin: Warm, dry, no rashes MS/ Extremity: Pulses equal, no cyanosis. Neurovascular intact. Full, normal range of motion. Equal circumference. Neuro: Awake and alert, GCS 15 Vital Signs: 03:32 BP 128 / 73; Pulse 104; Resp 19; Temp 99.5; Pulse Ox 98% ; Weight 81.65 kg; Height 5 rr5 ft. 2 in. (157.48 cm); Pain 10/10; 05:27 BP 121 / 70; Pulse 95; Resp 16; Pulse Ox 98% ; rr5 05:45 BP 123 / 78; Pulse 90; Resp 19; Temp 99; Pulse Ox 100% ; rr5 03:32 Body Mass Index 32.92 (81.65 kg, 157.48 cm) rr5 MDM: 03:30 Patient medically screened. rn 05:39 Differential diagnosis: group A strep tonsillitis, influenza, laryngitis, pharyngitis, rn tonsillitis, upper respiratory infection, viral syndrome. Data reviewed: vital signs, nurses notes, lab test result(s), and as a result, I will discharge patient. Counseling: I had a detailed discussion with the patient and/or guardian regarding: the historical points, exam findings, and any diagnostic results supporting the discharge/admit diagnosis, lab results, the need for outpatient follow up, to return to the emergency department if symptoms worsen or persist or if there are any questions or concerns that arise at home. Special discussion: I discussed with the patient/guardian in detail that at this point there is no indication for admission to the hospital. It is understood, however, that if the symptoms persist or worsen the patient needs to return immediately for re-evaluation. 11/24 03:41 Order name: Strep rn 11/24 03:42 Order name: Group A Streptococcus Rapid Sc; Complete Time: 05:39 EDMS 11/24 05:20 Order name: Throat Culture EDMS 11/24 05:30 Order name: COVID-19/FLU A+B; Complete Time: 05:39 EDMS Administered Medications: 03:50 Drug: Motrin (ibuprofen) 800 mg Route: PO; rr5 04:50 Follow up: Response: No adverse reaction rr5 Disposition: 11/24/20 05:39 Discharged to Home. Impression: Acute tonsillitis. - Condition is Stable. - Discharge Instructions: Tonsillitis. - Prescriptions for Augmentin 875- 125 mg Oral Tablet - take 1 tablet by ORAL route every 12 hours for 10 days; 20 tablet. - Medication Reconciliation Form, Thank You Letter, Antibiotic Education, Prescription Opioid Use form. - Follow up: Private Physician; When: As needed; Reason: Recheck today's complaints, Re-evaluation by your physician. - Problem is new. - Symptoms have improved. 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 [facility] 04:23 03:42 CORONAVIRUS+MR.LAB.BRZ ordered. [facility] 05:47 05:39 11/24/2020 05:39 Discharged to Home. Impression: Acute tonsillitis. Condition is rr5 Stable. Forms are Medication Reconciliation Form, Thank You Letter, Antibiotic Education, Prescription Opioid Use. Follow up: Private Physician; When: As needed; Reason: Recheck today's complaints, Re-evaluation by your physician. Problem is new. Symptoms have improved. rn
[2020-11-24 05:58] VITALS: BP 123/78; TEMP 99; O2SAT 100
== END 2020-11-24 05:47 | disposition home or self-care (01) ==
LOC: ER 03:27
DX: J03.90 Acute tonsillitis, unspecified (principal); Z20.822 Contact with and (suspected) exposure to COVID-19; E03.9 Hypothyroidism, unspecified; F41.8 Other specified anxiety disorders; F17.210 Nicotine dependence, cigarettes, uncomplicated; Z88.5 Allergy status to narcotic agent; Z88.8 Allergy status to other drugs, medicaments and biological substances
CPT/HCPCS: 87070; 87081; 0240U; 99284

== ENCOUNTER 2020-11-25 10:15 | Emergency (ER) | payer BC ==
--- OUTSIDE RECORDS SUMMARY | 2020-11-25 10:18 | XMS REPORT | Continuity of Care Document ---
:1985 Author Organization [facility] t Address [address] [place] [address] Care Team Providers Name Role Phone Elian [...] St Reaction out [facility] tramadol Adverse Active more [facility] Reaction anxious/no [facility] - [facility] Sudafed Adverse Active makes heart [facility] Reaction race [facility] Medications Ordered Filled Start Stop Current Ordering Indication Dosage Frequency Signature Comments Components Source Medication Medication Date Date Medication? Clinician (SIG) Name Name Amphetamine Amphetamine 2019-06 Yes Kian [address] [facility] -Dextroamph -Dextroamph 0-12 [facility] etamine etamine 00:00: [facility] 00 [facility] Adderall Adderall Yes Kian [address] [facility] 9-15 [facility] in the [facility] - 00:00: morning [facility] 00 [facility] HydrOXYzine HydrOXYzine Yes Kian [address] [facility] Pamoate Pamoate 9-15 Edwards as needed [place] es - 00:00: [facility] 00 l [facility] Gabapentin Gabapentin Yes Kian [address] [facility] 3-17 Edwards once [facility] - 00:00: today, [facility] 00 then 1 l capsule [facility] twice ent daily Clinics Valacyclovi Valacyclovi Yes Kian [address] [facility] r HCl r HCl 3-13 [facility] - 00:[facility]: [facility] 00 [facility] Levothyroxi Levothyroxi Yes Kina [address] [facility] ne Sodium ne Sodium Edwards on an [place] es - empty Memoria stomach in l the [facility] morning ent Clinics Propranolol Propranolol Yes Kian [address] [facility] HCl HCl Edwards on an [facility] - empty [facility]oria stomach l [facility] Duexis Duexis Yes Kian 1 tablet [facility] Belsomra Belsomra Yes Kian [address] [facility] at bedtime [facility] - as needed [facility] Zantac Zantac Yes Kian [facility] [address] [facility] at bedtime [facility] Cetirizine Cetirizine Yes Kian [address] [facility] HCl HCl [facility] Escitalopra Escitalopra Yes Kian [address] [facility] [facility] m Oxalate m Oxalate Edwards [facility] Immunizations Ordered Filled Immunization Date Status Comments [facility] e Immunization Name Name TDAP- Boostrix TDAP- Boostrix 2018-08-[address] [facility]00 [facility] Procedures This patient has no known procedures. Encounters Start End Encounter Admission Attending Care Care Encounter Source Date/Time Date/Time Type Type Clinicians Facility Department ID 2020-10-24 2020-10-24 Outpatient [facility] [id number] [facility] 2020-10-04 2020-10-04 Refill Patrick [facility] [id number] 00:00:00 00:00:00 [facility] [id number] [place] [id number] Professio [phone] nal [address] One 2020-09-28 2020-09-28 Urgent Provider, [facility] [id number] 15:32:06 15:52:06 Care Ang [facility] [id number] Care [place] [id number] Professio [phone] nal [facility] Office Building One 2020-09-27 2020-09-27 Outpatient [facility] [id number] [facility] 2020-09-21 2020-09-21 Laboratory Lab, [facility] [id number] 11:15:55 11:35:55 Only Fam Pob I Health [id number] [place] [id number] Professio [phone] nal [facility] Office Building One 2020-09-13 2020-09-13 Patient Shahab, [facility] [id number] 00:00:00 00:00:00 Outreach [facility] PRIMARY [id number] Edward CARE [id number] PAVILLION [id number] [id number] 2020-09-04 2020-09-04 [facility] [id number] [facility] 2020-08-29 2020-08-29 Outpatient [facility] [id number] [facility] 2020-08-03 2020-08-03 Outpatient [facility] [id number] [facility] 2020-08-03 2020-08-03 Outpatient [facility] [id number] [facility] 2020-06-30 2020-06-30 Outpatient [facility] [id number] [facility] 2020-06-30 2020-06-30 Outpatient [facility] [id number] [facility] 2020-06-15 2020-06-15 Outpatient [facility] [id number] [facility] 2020-06-09 2020-06-09 Outpatient [facility] [id number] [facility] 2020-06-08 2020-06-08 Outpatient [facility] [id number] [facility] 2020-06-03 2020-06-03 Emergency Levin, [facility] [id number] 17:19:00 17:57:00 José Wallace [id number] [place] [id number] [place] [id number] 2020-06-03 2020-06-03 Orders Doctor PIERO [id number] 00:00:00 00:00:00 Only Unassigned, [id number] [id number] 2020-05-31 2020-05-31 Outpatient [facility] [id number] [facility] 2020-05-30 2020-05-30 Laboratory Lab, Adc [facility] [id number] 15:47:38 16:07:38 Only Fam Pob I Health [id number] [place] [id number] [facility] [phone] nal 044 Office Building One 2020-05-30 2020-05-30 Outpatient [facility] [id number] [facility] 2020-05-23 2020-05-23 Outpatient [facility] [id number] [facility] 2020-03-09 2020-03-09 Outpatient [facility] [id number] [facility] 2020-03-08 2020-03-08 [facility] [id number] [facility] 14:40:00 14:40:00 t [employer] s - [employer] [facility] l Medicine Outpati ent Clinics 2020-02-25 2020-02-25 Emergency Judd, [facility] [id number] 21:47:00 22:45:00 Yessi Hauserton [id number] [place] [id number] [place] [id number] 2019-12-30 2020-01-01 Laboratory Only, Dic [facility] [id number] 15:11:12 16:50:00 Only Test HEALTH [id number] [facility] [id number] [facility] [id number] [place] [address] CLINIC 2019-11-26 2019-11-26 [facility] [id number] 11:15:00 11:15:00 t [employer] s [employer] [facility] l Medicine Outpati ent Clinics 2019-10-14 2019-10-14 [facility] [id number] 14:30:00 14:30:00 t [employer] [facility] l Medicine Outpati ent Clinics 2019-10-08 2019-10-08 [facility] [id number] 08:18:00 08:18:00 t [facility] Medicine Outpati ent Clinics 2019-10-06 2019-10-06 [facility] [id number] 09:40:00 09:40:00 t [facility] l Medicine Outpati ent Clinics 2019-10-05 2019-10-05 [facility] [id number] 14:37:00 14:37:00 [place] [employer] s - [employer] [facility] Medicine l Medicine Outpati ent Clinics 2019-09-07 2019-09-07 [facility] [id number] 15:10:00 15:10:00 [place] [employer] s - [employer] [facility] Medicine l Medicine Outpati ent Clinics 2019-09-07 2019-09-07 [facility] [id number] [facility] 09:56:00 09:56:00 [place] [employer] s - [employer] [facility] Medicine Outpati ent Clinics 2019-09-04 2019-09-04 [facility] [id number] 09:15:00 09:15:00 [place] [employer] s - [employer] [facility] Medicine l Medicine Outpati ent Clinics 2019-08-28 2019-08-28 [facility] [id number] 10:30:00 10:30:00 t [employer] s - [employer] [facility] l Medicine Outpati ent Clinics 2019-07-31 2019-07-31 [facility] [id number] 09:40:00 09:40:00 t [facility] Medicine Outpati ent Clinics 2019-06-16 2019-06-16 [facility] [id number] 08:00:00 08:00:00 [place] [employer] s - [employer] [facility] l Medicine Outpati ent Clinics 2019-05-05 2019-05-05 [facility] [id number] 11:45:00 11:45:00 t [place] [employer] s - [employer] [facility] Medicine l Medicine Outpati ent Clinics 2019-04-29 2019-04-29 [facility] [id number] 08:03:00 08:03:[address] [facility] [place] Drive [facility] Medicine l Medicine Outpati ent Clinics 2019-03-31 2019-03-31 [facility] [id number] 10:49:00 10:49:[address] [facility] [place] Drive [facility] Medicine l Medicine Outpati ent Clinics 2019-03-25 2019-03-25 [facility] [id number] 10:56:00 10:56:[address] [facility] - Drive [facility] Medicine l Medicine Outpati ent Clinics 2019-03-24 2019-03-24 [facility] [id number] 16:12:00 16:12:[address] [facility] - Drive [facility] Medicine l Medicine Outpati ent Clinics 2019-03-23 2019-03-23 [facility] [id number] 09:00:00 09:00:[address] [facility] [place] Drive [facility] Medicine l Medicine Outpati ent Clinics 2019-02-10 2019-02-10 [facility] [id number] 14:18:00 14:18:[address] [facility] - Drive [facility] Medicine l Medicine Outpati ent Clinics 2018-10-14 2018-10-14 [facility] [id number] 08:30:00 08:30:[address] [facility] - Drive [facility] Medicine l Medicine Outpati ent Clinics 2018-10-02 2018-10-02 [facility] [id number] [facility] 10:38:00 10:38:[address] [facility] - Drive [facility] Medicine l Medicine Outpati ent Clinics 2018-09-24 2018-09-24 [facility] [id number] 08:15:00 08:15:[address] [facility] - Drive [facility] Medicine l Medicine Outpati ent Clinics 2018-08-13 2018-08-13 [facility] [id number] [facility] 08:45:00 08:45:[address] [facility] - Drive [facility] Medicine l Medicine Outpati ent Clinics 2018-07-01 2018-07-01 [facility] [id number] [facility] 08:15:00 08:15:[address] [facility] - Drive [facility] Medicine Medicine Outpati ent Clinics 2018-03-26 2018-03-26 [facility] [id number] [facility] 08:30:00 08:30:[address] [facility] - Drive [facility] Medicine Outpati ent Clinics 2018-02-06 2018-02-06 [facility] [id number] 15:30:00 15:30:[address] [facility] - Drive [facility] Medicine Medicine Outpati ent Clinics 2018-01-24 2018-01-24 [facility] [id number] [facility] 09:21:00 09:21:[address] [facility] - Drive [facility] Medicine Outpati ent Clinics 2018-01-21 2018-01-21 [facility] [id number] 14:07:00 14:07:[address] [facility] - Drive [facility] Medicine Medicine Outpati ent Clinics 2018-01-15 2018-01-15 [facility] [id number] 13:30:00 13:30:[address] [facility] - Drive [facility] Medicine Outpati ent Clinics 2018-01-09 2018-01-09 [facility] [id number] 15:45:00 15:45:[address] [facility] - Drive [facility] Medicine Medicine Outpati ent Clinics 2018-01-08 2018-01-08 [facility] [id number] 08:27:00 08:27:00 t [facility] Out[facility] ent Clinics 2018-01-01 2018-01-01 [facility] [id number] [facility] 15:35:00 15:35:00 t [facility] Clinic l Outpati ent Clinics 2018-01-01 2018-01-01 [facility] [id number] 15:34:00 15:34:00 t [facility] l Outpati ent Clinics 2017-12-26 2017-12-26 [facility] [id number] [facility] 15:15:00 15:15:00 t [facility] Ra [facility] Clinic l Outpati ent Clinics 2017-12-10 2017-12-10 [facility] [id number] 15:45:00 15:45:[address] [facility] - Drive [facility] Family Medicine l Medicine Outpati ent Clinics 2017-11-19 2017-11-19 [facility] [id number] 10:09:00 10:09:[address] Luke [facility] - Drive [facility] Medicine l Medicine Outpati ent Clinics 2017-11-12 2017-11-12 [facility] [id number] 13:00:00 13:00:[address] [facility] - Drive [facility] Medicine l Medicine Outpati ent Clinics 2017-10-25 2017-10-25 [facility] [id number] 15:04:00 15:04:[address] Luke [facility] - Drive [facility] Family Medicine l Medicine Outpati ent Clinics 2017-10-15 2017-10-15 [facility] [id number] 13:54:00 13:54:[address] Luke [facility] - Drive [facility] Medicine l Medicine Outpati ent Clinics 2017-10-14 2017-10-14 [facility] [id number] 11:11:00 11:11:[address] Luke [facility] - Drive [facility] Medicine l Medicine Outpati ent Clinics 2017-10-01 2017-10-01 [facility] [id number] 08:52:00 08:52:[address] Luke [facility] - Drive [facility] Medicine l Medicine Outpati ent Clinics 2017-09-18 2017-09-18 [facility] [id number] [facility] 13:00:00 13:00:[address] [facility] - Drive [facility] Medicine Medicine Outpati ent Clinics Results This patient has no known results.
[2020-11-25] MEDS ORDERED: dexAMETHasone 10 MG/ML VIAL ONE (11:00)
[2020-11-25] MEDS ORDERED: ONDANSETRON 4 MG (ODT) TAB ONE (11:10)
--- NOTE | 2020-11-25 11:53 | ER ---
Nurse's Notes [facility] Name: Gayla Nova Age: 35 yrs Sex: Female : 1985 Arrival Date: 11/25/2020 Time: 10:18 Bed 10 Private MD: Diagnosis: Acute tonsillitis Presentation: 11/25 10:33 Chief complaint: Patient states: "I have been having throat pain and discomfort for jd3 awhile now, I was seen here and was given antibiotics, but the antibiotics are not helping and it hurting so much now.". Coronavirus screen: At this time, the client does not indicate any symptoms associated with coronavirus-19. Ebola Screen: Patient negative for fever greater than or equal to 101.5 degrees Fahrenheit, and additional compatible Ebola Virus Disease symptoms. Initial Sepsis Screen: Does the patient meet any 2 criteria? No. Patient's initial sepsis screen is negative. Does the patient have a suspected source of infection? No. Patient's initial sepsis screen is negative. Risk Assessment: Do you want to hurt yourself or someone else? Patient reports no desire to harm self or others. Onset of symptoms was November 25, 2020. 10:33 Method Of Arrival: Ambulatory jd3 10:33 Acuity: AIDEN 3 jd3 Triage Assessment: 10:52 General: Appears in no apparent distress. uncomfortable, Behavior is calm, cooperative, jd3 appropriate for age, crying. Pain: Complains of pain in throat Quality of pain is described as sharp, squeezing, stinging. EENT: Throat is reddened has patchy exudate has enlarged tonsils bilaterally. Neuro: Level of Consciousness is awake, alert, obeys commands, Oriented to person, place, time, situation. Cardiovascular: Capillary refill < 3 seconds Patient's skin is warm and dry. Respiratory: Airway is patent Respiratory effort is even, unlabored, Respiratory pattern is regular, symmetrical, Denies cough, shortness of breath. GI: Reports nausea. : No signs and/or symptoms were reported regarding the genitourinary system. Derm: Skin is intact, Skin is dry, Skin is normal, Skin temperature is warm. Musculoskeletal: No signs and/or symptoms reported regarding the musculoskeletal system. 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 - Social history:: Smoking status: unknown. Screenin:53 Abuse screen: Denies threats or abuse. Nutritional screening: No deficits noted. jd3 Tuberculosis screening: No symptoms or risk factors identified. Fall Risk None identified. Assessment: 11:11 General: Appears in no apparent distress. comfortable, Behavior is calm, cooperative. vg1 Pain: Complains of pain in throat Pain currently is 10 out of 10 on a pain scale. Quality of pain is described as sharp, piercing, Pain began 2-3 days ago. Noted to be grimacing. Neuro: Level of Consciousness is awake, alert, obeys commands, Oriented to person, place, time, situation. Cardiovascular: Patient's skin is warm and dry. Respiratory: Airway is patent Respiratory effort is even, unlabored, Denies shortness of breath. GI: Reports nausea, vomiting. : No signs and/or symptoms were reported regarding the genitourinary system. EENT: Throat is reddened has enlarged tonsils Reports difficulty swallowing. Derm: Skin is intact, is healthy with good turgor. Musculoskeletal: Circulation, motion, and sensation intact. Vital Signs: 10:36 BP 126 / 68; Pulse 100; Resp 18 S; Temp 98.0(TE); Pulse Ox 99% on R/A; Weight 81.65 kg jd3 (R); Height 5 ft. 2 in. (157.48 cm) (R); Pain 10/10; 11:20 BP 124 / 61; Pulse 88; Resp 16; Pulse Ox 100% on R/A; vg1 10:36 Body Mass Index 32.92 (81.65 kg, 157.48 cm) jd3 ED Course: 10:18 Patient arrived in ED. ds1 10:33 Bryon Shepherd PA is PHCP. jr8 10:33 Massimo Dupree MD is Attending Physician. jr8 10:35 Triage completed. jd3 10:37 Arm band placed on. jd3 10:51 [place] Screen Profile Sent. jd3 10:53 Patient has correct armband on for positive identification. Bed in low position. Side jd3 rails up X 1. Pulse ox on. NIBP on. 11:18 Krystle Ramirez, RN is Primary Nurse. vg1 11:52 Nahomi Hall MD is Referral Physician. jr8 12:15 No provider procedures requiring assistance completed. Patient did not have IV access vg1 during this emergency room visit. Administered Medications: 10:40 Drug: Decadron (dexamethasone) 10 mg Route: IM; Site: right deltoid; jd3 12:15 Follow up: Response: No adverse reaction vg1 10:55 Drug: Zofran (Ondansetron) 4 mg Route: PO; jd3 12:15 Follow up: Response: No adverse reaction vg1 Outcome: 11:52 Discharge ordered by . jr8 12:15 Discharged to home ambulatory. vg1 12:15 Condition: stable 12:15 Discharge instructions given to patient, Instructed on discharge instructions, follow up and referral plans. medication usage, Demonstrated understanding of instructions, follow-up care, medications, Prescriptions given X 2. 12:16 Patient left the ED. vg1 Signatures: Saira Minor ds1 Bryon Shepherd PA PA jr8 Gallo Shore RN RN jKrystle Nguyễn, RN RN vg1 Corrections: (The following items were deleted from the chart) 10:38 10:33 Acuity: AIDEN 4 jd3 jd3
--- NOTE | 2020-11-25 11:53 | EDPHYS ---
Physician Documentation [facility] Name: Gayla Nova Age: 35 yrs Sex: Female : 1985 Arrival Date: 11/25/2020 Time: 10:18 Bed 10 Private MD: ED Physician Massimo Dupree HPI: 11/25 10:45 This 35 yrs old Female presents to ER via Ambulatory with complaints of jr8 Tonsil Swelling. 10:45 The patient presents with sore throat, dysphagia, of both solids and liquids. The jr8 patient describes throat pain as constant. Onset: The symptoms/episode began/occurred acutely, 2 day(s) ago. Severity of symptoms: At their worst the symptoms were moderate. Modifying factors: The symptoms are alleviated by nothing, the symptoms are aggravated by swallowing. Associated signs and symptoms: The patient has no apparent associated signs or symptoms. The patient has not experienced similar symptoms in the past. The patient has been recently seen by a physician: The patient has been recently seen at the [facility] Emergency Department, yesterday, for similar complaints labs were performed, was given a prescription for antibiotics, the patient was told to return for a recheck. Patient stated that it has become harder to swallow and was worried that her symptoms were worsening . 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 - Social history:: Smoking status: unknown. ROS: 10:45 Eyes: Negative for injury, pain, redness, and discharge, Neck: Negative for injury, jr8 pain, and swelling, Cardiovascular: Negative for chest pain, palpitations, and edema, Respiratory: Negative for shortness of breath, cough, wheezing, and pleuritic chest pain, Abdomen/GI: Negative for abdominal pain, nausea, vomiting, diarrhea, and constipation, Back: Negative for injury and pain, MS/Extremity: Negative for injury and deformity, Skin: Negative for injury, rash, and discoloration, Neuro: Negative for headache, weakness, numbness, tingling, and seizure. 10:45 ENT: Positive for difficulty handling secretions, sore throat. Exam: 10:45 Constitutional: This is a well developed, well nourished patient who is awake, alert, jr8 and in no acute distress. Eyes: Pupils equal round and reactive to light, extra-ocular motions intact. Lids and lashes normal. Conjunctiva and sclera are non-icteric and not injected. Cornea within normal limits. Periorbital areas with no swelling, redness, or edema. Neck: Trachea midline, no thyromegaly or masses palpated. Anterior cervical lymphadenopathy present on right side. Supple, full range of motion without nuchal rigidity, or vertebral point tenderness. No Meningismus. Cardiovascular: Regular rate and rhythm with a normal S1 and S2. No gallops, murmurs, or rubs. Normal PMI, no JVD. No pulse deficits. Respiratory: Lungs have equal breath sounds bilaterally, clear to auscultation and percussion. No rales, rhonchi or wheezes noted. No increased work of breathing, no retractions or nasal flaring. Abdomen/GI: Soft, non-tender, with normal bowel sounds. No distension or tympany. No guarding or rebound. No evidence of tenderness throughout. Skin: Warm, dry with normal turgor. Normal color with no rashes, no lesions, and no evidence of cellulitis. MS/ Extremity: Pulses equal, no cyanosis. Neurovascular intact. Full, normal range of motion. Neuro: Awake and alert, GCS 15, oriented to person, place, time, and situation. Motor strength 5/5 in all extremities. Sensory grossly intact. 10:49 ENT: Exam is negative for ear discharge, TM abnormalities, Mouth: Lips: moist, Oral jr8 mucosa: pink and intact, moist, Gums: pink, Tongue: is moist, Posterior pharynx: Airway: no evidence of obstruction, patent, Tonsils: bilaterally enlarged, with erythema, with exudate, no ulcerations, Uvula: midline, edematous, swelling, is not appreciated, erythema, that is moderate. Vital Signs: 10:36 BP 126 / 68; Pulse 100; Resp 18 S; Temp 98.0(TE); Pulse Ox 99% on R/A; Weight 81.65 kg jd3 (R); Height 5 ft. 2 in. (157.48 cm) (R); Pain 10/10; 11:20 BP 124 / 61; Pulse 88; Resp 16; Pulse Ox 100% on R/A; vg1 10:36 Body Mass Index 32.92 (81.65 kg, 157.48 cm) jd3 MDM: 10:33 Patient medically screened. jr8 10:45 Data reviewed: vital signs, nurses notes, lab test result(s). Data interpreted: Pulse jr8 oximetry: on room air is 99 %. Interpretation: normal. Counseling: I had a detailed discussion with the patient and/or guardian regarding: the historical points, exam findings, and any diagnostic results supporting the discharge/admit diagnosis, lab results, the need for outpatient follow up, a family practitioner, to return to the emergency department if symptoms worsen or persist or if there are any questions or concerns that arise at home. 11:51 ED course: Strep negative from yesterday. Normal floral growth noted on culture. [place] jr8 negative today. Will have patient continue Augmentin for now and will start steroids as well. Patient knows to come back if worse. 11/25 10:38 Order name: [place] Screen Profile; Complete Time: 11:44 jr8 Administered Medications: 10:40 Drug: Decadron (dexamethasone) 10 mg Route: IM; Site: right deltoid; jd3 12:15 Follow up: Response: No adverse reaction vg1 10:55 Drug: Zofran (Ondansetron) 4 mg Route: PO; jd3 12:15 Follow up: Response: No adverse reaction vg1 Disposition: 18:51 Co-signature as Attending Physician, Massimo Dupree MD I agree with the assessment and kdr plan of care. Disposition: 11/25/20 11:52 Discharged to Home. Impression: Acute tonsillitis. - Condition is Stable. - Discharge Instructions: Tonsillitis. - Prescriptions for Medrol (Adam) 4 mg Oral Tablets, Dose Pack - take 1 tablet by ORAL route as directed - follow package instructions; 1 packet. Zofran 4 mg Oral Tablet - take 1 tablet by ORAL route every 12 hours As needed; 20 tablet. - Medication Reconciliation Form, Thank You Letter, Antibiotic Education, Prescription Opioid Use, Work release form form. - Follow up: Nahomi Hall MD; When: 1 week; Reason: Recheck today's complaints, Continuance of care, Re-evaluation by your physician. - Problem is new. - Symptoms have improved. 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 Eyes: Pupils equal round and reactive to light, extra-ocular motions intact. Lids and lashes normal. Conjunctiva and sclera are non-icteric and not injected. Cornea within normal limits. Periorbital areas with no swelling, redness, or edema. Neck: Trachea midline, no thyromegaly or masses palpated. Anterior cervical lymphadenopathy present on right side. Supple, full range of motion without nuchal rigidity, or vertebral point tenderness. No Meningismus. Cardiovascular: Regular rate and rhythm with a normal S1 and S2. No gallops, murmurs, or rubs. Normal PMI, no JVD. No pulse deficits. Respiratory: Lungs have equal breath sounds bilaterally, clear to auscultation and percussion. No rales, rhonchi or wheezes noted. No increased work of breathing, no retractions or nasal flaring. Abdomen/GI: Soft, non-tender, with normal bowel sounds. No distension or tympany. No guarding or rebound. No evidence of tenderness throughout. Skin: Warm, dry with normal turgor. Normal color with no rashes, no lesions, and no evidence of cellulitis. MS/ Extremity: Pulses equal, no cyanosis. Neurovascular intact. Full, normal range of motion. Neuro: Awake and alert, GCS 15, oriented to person, place, time, and situation. Motor strength 5/5 in all extremities. Sensory grossly intact. jr8 12:16 11:52 11/25/2020 11:52 Discharged to Home. Impression: Acute tonsillitis. Condition is vg1 Stable. Forms are Medication Reconciliation Form, Thank You Letter, Antibiotic Education, Prescription Opioid Use. Follow up: Nahomi Hall; When: 1 week; Reason: Recheck today's complaints, Continuance of care, Re-evaluation by your physician. Problem is new. Symptoms have improved. jr8
[2020-11-25 12:20] VITALS: TEMP 98
[2020-11-25 12:22] VITALS: BP 124/61; O2SAT 100
== END 2020-11-25 12:16 | disposition home or self-care (01) ==
LOC: ER 10:15
DX: J03.90 Acute tonsillitis, unspecified (principal); F90.9 Attention-deficit hyperactivity disorder, unspecified type; F41.9 Anxiety disorder, unspecified; F32.9 Major depressive disorder, single episode, unspecified; G25.0 Essential tremor; E03.9 Hypothyroidism, unspecified
CPT/HCPCS: 36415; 86308; 96372; 99284; J1100

== ENCOUNTER 2022-09-13 16:40 | Emergency (ER) | payer BC ==
--- OUTSIDE RECORDS SUMMARY | 2022-09-13 16:47 | XMS REPORT | Continuity of Care Document ---
:1985 Author Organization [facility] t Address [address] [place] [address] Care Team Providers Name Role Phone JODEE EDWARDS Primary Care Physician Unavailable Jodee Edwards Attending Clinician Unavailable SHELLI PIEDRA Attending Clinician Unavailable Shelli Piedra MD Attending Clinician Vanessa Kim MD Attending Clinician Unknown, Attending Attending Clinician Unavailable VANESSA KIM Attending Clinician Unavailable Doctor Unassigned, [place] Attending Clinician Unavailable Only, Ang Db Test Attending Clinician Unavailable Belinda Oliva Attending Clinician BELINDA COLVIN Attending Clinician Unavailable Drea Menjivar Attending Clinician DREA MUÑOZ Attending Clinician Unavailable RAFITA EDWARDS Attending Clinician Unavailable Rafita Edwards MD Attending Clinician Only, Adc Ed Test Attending Clinician Unavailable Arianne KNOX, Nia M Attending Clinician Unavailable Piero Li PA-C Attending Clinician PIERO LI Attending Clinician Unavailable Shereen Rodríguez Attending Clinician Provider, [facility] Attending Clinician Unavailable Darian TESTING LEADJaneth Petit Attending Clinician JANETH FARMER Attending Clinician Unavailable Lab, Adc Fam Pob I Attending Clinician Unavailable SHEREEN TORREZ Attending Clinician Unavailable EMI LEWIS Attending Clinician Unavailable Thiago Gudino DO Attending Clinician José Levin DO Attending Clinician Alycia TESTING LEAD, Jose Attending Clinician JOSE TONG Attending Clinician Unavailable Yessi Palmer Attending Clinician Only, Dic Test Attending Clinician Unavailable Jono Clark MD Attending Clinician JONO CLARK Attending Clinician Unavailable SHELLI PIEDRA Admitting Clinician Unavailable RAFITA EDWARDS Admitting Clinician Unavailable Payers Payer Name Policy Type Policy Number Effective Date Expiration Date S ourmariah [facility] [id number] 2018 EMPLOYEE PLAN 00:00:00 [employer] Blue C1 [id number] 2018 [facility] 00:00:00 - [facility] Problems Condition Condition Condition Status Onset Resolution Last Treating Co mments Source Name Details Category Date Date Treatment Clinician Date Hepatic Hepatic Disease Active 2015-06 Univers lesion lesion 06-25 ity of 00:00: [address] Mesenteric Mesenteric Disease Active 2015-06 U nivers lymphadeno lymphadeno 06-25 it y of ajay ajay 00:00: [address] Insomnia Insomnia Disease Active Unive rs 9- ity of 00:00: [address] Cervical Cervical Disease Active Unive rs facet facet 9- ity of syndrome syndrome 00:00: [address] [id number] Seasonal Problem Active Comm on allergic Spirit rhinitis, - [facility] [id number] Hypothyroi Problem Active Com mon dism, Spirit unspecifie - [facility] d type [facility] [id number] ADHD Problem Active Common (attention Spirit deficit - [facility] hyperactiv [facility] disorder), [facility] e type [id number] Depression Problem Active Co mmon with Spirit anxiety - [facility] [id number] PTSD Problem Active Common (post-trau Spirit matic - [facility] stress [facility] disorder) [facility] [id number] Hyperlipid Problem Active Com mon emia, Spirit unspecifie - [facility] d [facility] hyperlipid [facility] emia [facility] [id number] Gastroesop Problem Active Co mmon hageal Spirit reflux - [facility] disease [facility] esophagiti [place] [id number] Tobacco Problem Active Commo n use [facility] disorder [facility] [id number] Primary Problem Active Common insomnia [facility] [id number] Neck pain Problem Active Comm on Spirit [facility] [id number] Otalgia of Problem Active Co mmon both ears [facility] [id number] Essential Problem Active Com mon tremor [facility] [id number] Adult BMI Problem Active Com mon 40.0-44.9 Spirit kg/sq [facility] Allergies, Adverse Reactions, Alerts Allergy Allergy Status Severity Reaction(s) Onset Inactive Treating Comm ents Source Name Type Date Date Clinician MORPHINE DRUG Active Hallucinates 2019-06 Un [place] INGREDI 2-11 ity of 00:00: [place] [facility] Morphine Propensi Active Hallucinatio 2019-06 Univers ty to ns 2-11 ity of adverse 00:00: [place] reaction [facility] PSEUDOEP DRUG Active SOB Univers HEDRINE INGREDI 9-20 ity of HCL 00:: [facility] TRAMADOL DRUG Active Anxiety Univers INGREDI 9-20 ity of 00:00: [facility] Pseudoep Propensi Active Shortness of Univers hedrine ty to Breath 9-20 ity of Hcl adverse 00:00: reaction [facility] Tramadol Propensi Active Anxiety 2016-0 Unive rs ty to 9-20 ity of adverse 00:00: [place] reaction 00 Medical s Branch 7826 Drug Active makes heart Commo n allergy race [facility] topirama topirama Active mouth break C ommon te te out [facility] tramadol tramadol Active more Common anxious/no Spirit sleep [facility] Social History Social Habit Start Date Stop Date Quantity Comments Source History of Tobacco Current Smoker Co mmon Spirit - Use [facility] Sex Assigned At Common Sp dorcas - [facility] Exposure to 2022-08-10 2022-08-20 Not sure [facility] SARS-CoV-2 (event) 00:00:00 23:13:00 [facility] Alcohol intake 2022-05-15 2022-05-15 0 /d University of 00:00:00 00:00:00 [facility] Cigarettes smoked 2020-08-02 2020-08-02 Univers ity of current (pack per 00:00:00 00:00:00 [place] ) - Reported [place] Tobacco use and 2020-08-02 2020-08-02 Smokeless Universit y of exposure 00:00:00 00:00:00 tobacco [facility]-user [facility] Sm[facility] Status Start Date Stop Date Source Current Smoker 2021-02-25 00:00:00 [facility] Spiri t [facility] Medications Ordered Filled Start Stop Current Ordering Indication Dosage Frequency Signature Comments Components Source Medication Medication Date Date Medication? Clinician (SIG) Name Name ketorolac 2022- 30mg 30 mg, Unive rs (TORADOL) 08-21 Slow IV ity of injection 07:00: 06:03 Push, [place] 30 mg 00 :00 ONCE, 1 Medical dose, On Branch Sat08/21/22 at 0100, Routine dextroamphe 2021-06 Yes 10mg Take 10 mg Univers tamine-amph 07-15 by mouth ity of etamine 10 11:08: every [place] mg tablet 29 morning. Medica l Branch escitalopra 2021-06 Yes 20mg Take 20 mg Univers m oxalate 07-15 by mouth ity of 20 mg 11:08: daily. [place] tablet 29 Medical Branch propranoloL 2021-06 Yes 20mg Take 20 mg Univers 20 mg 1-22 by mouth 2 ity of tablet 11:08: (two) [place] 29 times Medical daily. Branch dextroamphe 2021-06 Yes 10mg Take 10 mg Univers tamine-amph 1-22 by mouth ity of etamine 10 11:08: every [place] mg tablet 29 morning. Medica l Branch escitalopra 2021-06 Yes 20mg Take 20 mg Univers m oxalate 1-22 by mouth ity of 20 mg 11:08: daily. [place] tablet 29 Medical Branch propranoloL 2021-06 Yes 20mg Take 20 mg Univers 20 mg 1-22 by mouth 2 ity of tablet 11:08: (two) [place] 29 times Medical daily. Branch dextroamphe 2021-06 Yes 10mg Take 10 mg Univers tamine-amph 1-22 by mouth ity of etamine 10 11:08: every [place] mg tablet 29 morning. Medica l Branch escitalopra 2021-06 Yes 20mg Take 20 mg Univers m oxalate 1-22 by mouth ity of 20 mg 11:08: daily. [place] tablet 29 Medical Branch propranoloL 2021-06 Yes 20mg Take 20 mg Univers 20 mg 1-22 by mouth 2 ity of tablet 11:08: (two) [place] 29 times Medical daily. Branch dextroamphe 2021-06 Yes 10mg Take 10 mg Univers tamine-amph 1-22 by mouth ity of etamine 10 11:08: every [place] mg tablet 29 morning. Medica l Branch escitalopra 2021-06 Yes 20mg Take 20 mg Univers m oxalate 1-22 by mouth ity of 20 mg 11:08: daily. [place] tablet 29 Medical Branch propranoloL 2021-06 Yes 20mg Take 20 mg Univers 20 mg 1-22 by mouth 2 ity of tablet 11:08: (two) [place] 29 times Medical daily. Branch ondansetron 2021-06 Yes [id number] 4mg Take 1 U nivers 4 mg 1-22 tablet by ity of disintegrat 00:00: mouth [place] ing tablet 00 every 8 Medica l (eight) Branch hours as needed for Nausea and Vomiting (N/V). benzonatate 2021-06 Yes [id number] 200mg Take 2 Univers 100 mg 1-22 capsules ity of capsule 00:00: by mouth [place] 00 every 8 Medical (eight) Branch hours as needed for Cough. ondansetron 2021-06 Yes [id number] 4mg Take 1 U nivers 4 mg 1-22 tablet by ity of disintegrat 00:00: mouth [place] ing tablet 00 every 8 Medica l (eight) Branch hours as needed for Nausea and Vomiting (N/V). benzonatate 2021-06 Yes [id number] 200mg Take 2 Univers 100 mg 1-22 capsules ity of capsule 00:00: by mouth [place] 00 every 8 Medical (eight) Branch hours as needed for Cough. ondansetron 2021-06 Yes [id number] 4mg Take 1 U nivers 4 mg 1-22 tablet by ity of disintegrat 00:00: mouth [place] ing tablet 00 every 8 Medica l (eight) Branch hours as needed for Nausea and Vomiting (N/V). benzonatate 2021-06 Yes [id number] 200mg Take 2 Univers 100 mg 1-22 capsules ity of capsule 00:00: by mouth [place] 00 every 8 Medical (eight) Branch hours as needed for Cough. ondansetron 2021-06 Yes [id number] 4mg Take 1 U nivers 4 mg 1-22 tablet by ity of disintegrat 00:00: mouth [place] ing tablet 00 every 8 Medica l (eight) Branch hours as needed for Nausea and Vomiting (N/V). benzonatate 2021-06 Yes [id number] 200mg Take 2 Univers 100 mg 1-22 capsules ity of capsule 00:00: by mouth [place] 00 every 8 Medical (eight) Branch hours as needed for Cough. oseltamivir 2021-06- No [id number] 75mg Take 1 Univers 75 mg 1-22 11-28 capsule by ity of capsule 00:00: 05:59 mouth in [place] 00 :00 the Medical morning Branch and 1 capsule in the evening. Do all this for 5 days. Amphetamine Amphetamine 2020-06 No 1{table BID Amphetamin -Dextroamph -Dextroamph 0-09 t} e-Dextroam etamine 10 etamine 10 00:00: phetamine MG MG 00 10 MG Adderall 10 Adderall 10 0 No 1{table BID Adderall MG MG 9-08 t} 10 MG 00:00: 00 Polymyxin Polymyxin 202- No 1{drop_ QID Polymyxin B-Trimethop B-Trimethop 03-0115 into_af B-Trimetho rim rim 00:00: 00:00 fected_ prim 30166-6.1 64903-6.1 00 :00 eye} 63233-6.1 UNIT/ML UNIT/ML UNIT/ML Amphetamine Amphetamine 0 No 1{table BID Amphetamin -Dextroamph -Dextroamph 7-12 t} e-Dextroam etamine 10 etamine 10 00:00: phetamine MG MG 00 10 MG Amphetamine Amphetamine 2020-0 No 1{table BID Amphetamin -Dextroamph -Dextroamph 7-12 t} e-Dextroam etamine 10 etamine 10 00:00: phetamine MG MG 00 10 MG Amphetamine Amphetamine 2020-0 No 1{table BID Amphetamin -Dextroamph -Dextroamph 7-12 t} e-Dextroam etamine 10 etamine 10 00:00: phetamine MG MG 00 10 MG Amphetamine Amphetamine 2020-0 No 1{table BID Amphetamin -Dextroamph -Dextroamph 7-12 t} e-Dextroam etamine 10 etamine 10 00:00: phetamine MG MG 00 10 MG Adderall 10 Adderall 10 2020-0 No 1{table BID Adderall MG MG 6-08 t} 10 MG 00:00: 00 Adderall 10 Adderall 10 2020-0 No 1{table BID Adderall MG MG 6-08 t} 10 MG 00:00: 00 Adderall 10 Adderall 10 2020-0 No 1{table BID Adderall MG MG 6-08 t} 10 MG 00:00: 00 Adderall 10 Adderall 10 2020-0 No 1{table BID Adderall MG MG 6-08 t} 10 MG 00:00: 00 benzonatate 2020-0 Yes [id number] 100mg Take 1 Univers (TESSALON 4-07 capsule by itMolly) 100 00:00: mouth 3 [place] as mg capsule 00 (three) Medica l times Branch daily. azelastine Yes [id number] 1{spray Use 1 Univers 137 mcg 4-07 } [place] in ity of (0.1 %) 00:00: each [place] nasal spray 00 nostril 2 Med ical (two) Branch times daily. Use in each nostril as directed benzonatate Yes [id number] 100mg Take 1 Univers (TESSALON 4-07 capsule by ity of PERLES) 100 00:00: mouth 3 [place] as mg capsule 00 (three) Medica l times Branch daily. azelastine Yes [id number] 1{spray Use 1 Univers 137 mcg 4-07 } [place] in ity of (0.1 %) 00:00: each [place] nasal spray 00 nostril 2 Med ical (two) Branch times daily. Use in each nostril as directed benzonatate Yes [id number] 100mg Take 1 Univers (TESSALON 4-07 capsule by ity of PERLES) 100 00:00: mouth 3 [place] as mg capsule 00 (three) Medica l times Branch daily. azelastine Yes [id number] 1{spray Use 1 Univers 137 mcg 4-07 } [place] in ity of (0.1 %) 00:00: each [place] nasal spray 00 nostril 2 Med ical (two) Branch times daily. Use in each nostril as directed benzonatate Yes [id number] 100mg Take 1 Univers (TESSALON 4-07 capsule by ity of PERLES) 100 00:00: mouth 3 [place] mg capsule 00 (three) Medica l times Branch daily. azelastine Yes [id number] 1{spray Use 1 Univers 137 mcg 4-07 } [place] in ity of (0.1 %) 00:00: each [place] nasal spray 00 nostril 2 Med ical (two) Branch times daily. Use in each nostril as directed benzonatate Yes [id number] 100mg Take 1 Univers (TESSALON 4-07 capsule by ity of PERLES) 100 00:00: mouth 3 [place] as mg capsule 00 (three) Medica l times Branch daily. azelastine Yes [id number] 1{spray Use 1 Univers 137 mcg 4-07 } [place] in ity of (0.1 %) 00:00: each [place] nasal spray 00 nostril 2 Med ical (two) Branch times daily. Use in each nostril as directed benzonatate 0 Yes [id number] 100mg Take 1 Univers (TESSALON 4-07 capsule by ity of PERLES) 100 00:00: mouth 3 [place] as mg capsule 00 (three) Medica l times Branch daily. azelastine Yes [id number] 1{spray Use 1 Univers 137 mcg 4-07 } [place] in ity of (0.1 %) 00:00: each [place] nasal spray 00 nostril 2 Med ical (two) Branch times daily. Use in each nostril as directed benzonatate 0 Yes [id number] 100mg Take 1 Univers (TESSALON 4-07 capsule by ity of PERLES) 100 00:00: mouth 3 [place] as mg capsule 00 (three) Medica l times Branch daily. azelastine Yes [id number] 1{spray Use 1 Univers 137 mcg 4-07 } [place] in ity of (0.1 %) 00:00: each [place] nasal spray 00 nostril 2 Med ical (two) Branch times daily. Use in each nostril as directed benzonatate 0 Yes [id number] 100mg Take 1 Univers (TESSALON 4-07 capsule by ity of PERLES) 100 00:00: mouth 3 [place] as mg capsule 00 (three) Medica l times Branch daily. azelastine Yes [id number] 1{spray Use 1 Univers 137 mcg 4-07 } [place] in ity of (0.1 %) 00:00: each [place] nasal spray 00 nostril 2 Med ical (two) Branch times daily. Use in each nostril as directed benzonatate 0 Yes [id number] 100mg Take 1 Univers (TESSALON 4-07 capsule by ity of PERLES) 100 00:00: mouth 3 [place] as mg capsule 00 (three) Medica l times Branch daily. azelastine 0 Yes [id number] 1{spray Use 1 Univers 137 mcg 4-07 } [place] in ity of (0.1 %) 00:00: each [place] nasal spray 00 nostril 2 Med ical (two) Branch times daily. Use in each nostril as directed benzonatate 2020-0 Yes [id number] 100mg Take 1 Univers (TESSALON 4-07 capsule by ity of PERLES) 100 00:00: mouth 3 [place] as mg capsule 00 (three) Medica l times Branch daily. azelastine Yes [id number] 1{spray Use 1 Univers 137 mcg 4-07 } [place] in ity of (0.1 %) 00:00: each [place] nasal spray 00 nostril 2 Med ical (two) Branch times daily. Use in each nostril as directed benzonatate 0 Yes [id number] 100mg Take 1 Univers (TESSALON 4-07 capsule by ity of PERLES) 100 00:00: mouth 3 [place] as mg capsule 00 (three) Medica l times Branch daily. azelastine Yes [id number] 1{spray Use 1 Univers 137 mcg 4-07 } [place] in ity of (0.1 %) 00:00: each [place] nasal spray 00 nostril 2 Med ical (two) Branch times daily. Use in each nostril as directed benzonatate 0 Yes [id number] 100mg Take 1 Univers (TESSALON 4-07 capsule by ity of PERLES) 100 00:00: mouth 3 [place] as mg capsule 00 (three) Medica l times Branch daily. azelastine Yes [id number] 1{spray Use 1 Univers 137 mcg 4-07 } [place] in ity of (0.1 %) 00:00: each [place] nasal spray 00 nostril 2 Med ical (two) Branch times daily. Use in each nostril as directed benzonatate 2020-0 Yes [id number] 100mg Take 1 Univers (TESSALON 4-07 capsule by ity of PERLES) 100 00:00: mouth 3 [place] as mg capsule 00 (three) Medica l times Branch daily. azelastine 0 Yes [id number] 1{spray Use 1 Univers 137 mcg 4-07 } [place] in ity of (0.1 %) 00:00: each [place] nasal spray 00 nostril 2 Med ical (two) Branch times daily. Use in each nostril as directed benzonatate 2020-0 Yes [id number] 100mg Take 1 Univers (TESSALON 4-07 capsule by ity of PERLES) 100 00:00: mouth 3 [place] mg capsule 00 (three) Medica l times Branch daily. azelastine 2020-0 Yes [id number] 1{spray Use 1 Univers 137 mcg 4-07 } [place] in ity of (0.1 %) 00:00: each [place] nasal spray 00 nostril 2 Med ical (two) Branch times daily. Use in each nostril as directed benzonatate Yes [id number] 100mg Take 1 Univers (TESSALON 4-07 capsule by ity of PERLES) 100 00:00: mouth 3 [place] as mg capsule 00 (three) Medica l times Branch daily. azelastine Yes [id number] 1{spray Use 1 Univers 137 mcg 4-07 } [place] in ity of (0.1 %) 00:00: each [place] nasal spray 00 nostril 2 Med ical (two) Branch times daily. Use in each nostril as directed benzonatate Yes [id number] 100mg Take 1 Univers (TESSALON 4-07 capsule by ity of PERLES) 100 00:00: mouth 3 [place] as mg capsule 00 (three) Medica l times Branch daily. azelastine Yes [id number] 1{spray Use 1 Univers 137 mcg 4-07 } [place] in ity of (0.1 %) 00:00: each [place] nasal spray 00 nostril 2 Med ical (two) Branch times daily. Use in each nostril as directed dextroamphe Yes 10mg Take 10 mg Univers tamine-amph 2-09 by mouth ity of etamine 14:41: every [place] (ADDERALL) 15 morning. Medic al 10 mg Branch tablet escitalopra Yes 20mg Take 20 mg Univers m oxalate 2-09 by mouth ity of (LEXAPRO) 14:41: daily. [place] 20 mg 15 Medical tablet Branch propranoloL 2020-0 Yes 20mg Take 20 mg Univers 20 mg 2-09 by mouth 2 ity of tablet 14:41: (two) [place] 15 times Medical daily. Branch dextroamphe Yes 10mg Take 10 mg Univers tamine-amph 2-09 by mouth ity of etamine 14:41: every [place] (ADDERALL) 15 morning. Medic al 10 mg Branch tablet escitalopra Yes 20mg Take 20 mg Univers m oxalate 2-09 by mouth ity of (LEXAPRO) 14:41: daily. [place] 20 mg 15 Medical tablet Branch propranoloL 1-0 Yes 20mg Take 20 mg Univers 20 mg 2-09 by mouth 2 ity of tablet 14:41: (two) [place] 15 times Medical daily. Branch dextroamphe 2021-0 Yes 10mg Take 10 mg Univers tamine-amph 2-09 by mouth ity of etamine 14:41: every [place] (ADDERALL) 15 morning. Medic al 10 mg Branch tablet escitalopra 1-0 Yes 20mg Take 20 mg Univers m oxalate 2-09 by mouth ity of (LEXAPRO) 14:41: daily. [place] 20 mg 15 Medical tablet Branch propranoloL 1-0 Yes 20mg Take 20 mg Univers 20 mg 2-09 by mouth 2 ity of tablet 14:41: (two) [place] 15 times Medical daily. Branch dextroamphe 1-0 Yes 10mg Take 10 mg Univers tamine-amph 2-09 by mouth ity of etamine 14:41: every [place] (ADDERALL) 15 morning. Medic al 10 mg Branch tablet escitalopra 1-0 Yes 20mg Take 20 mg Univers m oxalate 2-09 by mouth ity of (LEXAPRO) 14:41: daily. [place] 20 mg 15 Medical tablet Branch propranoloL 1-0 Yes 20mg Take 20 mg Univers 20 mg 2-09 by mouth 2 ity of tablet 14:41: (two) [place] 15 times Medical daily. Branch dextroamphe 1-0 Yes 10mg Take 10 mg Univers tamine-amph 2-09 by mouth ity of etamine 14:41: every [place] (ADDERALL) 15 morning. Medic al 10 mg Branch tablet escitalopra 1-0 Yes 20mg Take 20 mg Univers m oxalate 2-09 by mouth ity of (LEXAPRO) 14:41: daily. [place] 20 mg 15 Medical tablet Branch propranoloL 1-0 Yes 20mg Take 20 mg Univers 20 mg 2-09 by mouth 2 ity of tablet 14:41: (two) [place] 15 times Medical daily. Branch dextroamphe 2021-0 Yes 10mg Take 10 mg Univers tamine-amph 2-09 by mouth ity of etamine 08:41: every [place] (ADDERALL) 15 morning. Medic al 10 mg Branch tablet escitalopra 2021-0 Yes 20mg Take 20 mg Univers m oxalate 2-09 by mouth ity of (LEXAPRO) 08:41: daily. [place] 20 mg 15 Medical tablet Branch propranoloL 1-0 Yes 20mg Take 20 mg Univers 20 mg 2-09 by mouth 2 ity of tablet 08:41: (two) [place] 15 times Medical daily. Branch dextroamphe 1-0 Yes 10mg Take 10 mg Univers tamine-amph 2-09 by mouth ity of etamine 08:41: every [place] (ADDERALL) 15 morning. Medic al 10 mg Branch tablet escitalopra 1-0 Yes 20mg Take 20 mg Univers m oxalate 2-09 by mouth ity of (LEXAPRO) 08:41: daily. [place] 20 mg 15 Medical tablet Branch propranoloL 1-0 Yes 20mg Take 20 mg Univers 20 mg 2-09 by mouth 2 ity of tablet 08:41: (two) [place] 15 times Medical daily. Branch dextroamphe 1-0 Yes 10mg Take 10 mg Univers tamine-amph 2-09 by mouth ity of etamine 08:41: every [place] (ADDERALL) 15 morning. Medic al 10 mg Branch tablet escitalopra 1-0 Yes 20mg Take 20 mg Univers m oxalate 2-09 by mouth ity of (LEXAPRO) 08:41: daily. [place] 20 mg 15 Medical tablet Branch propranoloL 1-0 Yes 20mg Take 20 mg Univers 20 mg 2-09 by mouth 2 ity of tablet 08:41: (two) [place] 15 times Medical daily. Branch dextroamphe 1-0 Yes 10mg Take 10 mg Univers tamine-amph 2-09 by mouth ity of etamine 08:41: every [place] (ADDERALL) 15 morning. Medic al 10 mg Branch tablet escitalopra 1-0 Yes 20mg Take 20 mg Univers m oxalate 2-09 by mouth ity of (LEXAPRO) 08:41: daily. [place] 20 mg 15 Medical tablet Branch propranoloL 1-0 Yes 20mg Take 20 mg Univers 20 mg 2-09 by mouth 2 ity of tablet 08:41: (two) [place] 15 times Medical daily. Branch dextroamphe 2021-0 Yes 10mg Take 10 mg Univers tamine-amph 2-09 by mouth ity of etamine 08:41: every [place] (ADDERALL) 15 morning. Medic al 10 mg Branch tablet escitalopra 2021-0 Yes 20mg Take 20 mg Univers m oxalate 2-09 by mouth ity of (LEXAPRO) 08:41: daily. [place] 20 mg 15 Medical tablet Branch propranoloL 1-0 Yes 20mg Take 20 mg Univers 20 mg 2-09 by mouth 2 ity of tablet 08:41: (two) [place] 15 times Medical daily. Branch dextroamphe 2021-0 Yes 10mg Take 10 mg Univers tamine-amph 2-09 by mouth ity of etamine 08:41: every [place] (ADDERALL) 15 morning. Medic al 10 mg Branch tablet escitalopra 1-0 Yes 20mg Take 20 mg Univers m oxalate 2-09 by mouth ity of (LEXAPRO) 08:41: daily. [place] 20 mg 15 Medical tablet Branch propranoloL 1-0 Yes 20mg Take 20 mg Univers 20 mg 2-09 by mouth 2 ity of tablet 08:41: (two) [place] 15 times Medical daily. Branch dextroamphe 1-0 Yes 10mg Take 10 mg Univers tamine-amph 2-09 by mouth ity of etamine 08:41: every [place] (ADDERALL) 15 morning. Medic al 10 mg Branch tablet escitalopra 1-0 Yes 20mg Take 20 mg Univers m oxalate 2-09 by mouth ity of (LEXAPRO) 08:41: daily. [place] 20 mg 15 Medical tablet Branch propranoloL 1-0 Yes 20mg Take 20 mg Univers 20 mg 2-09 by mouth 2 ity of tablet 08:41: (two) [place] 15 times Medical daily. Branch dextroamphe 1-0 Yes 10mg Take 10 mg Univers tamine-amph 2-09 by mouth ity of etamine 08:41: every [place] (ADDERALL) 15 morning. Medic al 10 mg Branch tablet escitalopra 2021-0 Yes 20mg Take 20 mg Univers m oxalate 2-09 by mouth ity of (LEXAPRO) 08:41: daily. [place] 20 mg 15 Medical tablet Branch propranoloL 2021-0 Yes 20mg Take 20 mg Univers 20 mg 2-09 by mouth 2 ity of tablet 08:41: (two) [place] 15 times Medical daily. Branch dextroamphe 2021-0 Yes 10mg Take 10 mg Univers tamine-amph 2-09 by mouth ity of etamine 08:41: every [place] (ADDERALL) 15 morning. Medic al 10 mg Branch tablet escitalopra 0 Yes 20mg Take 20 mg Univers m oxalate 2-09 by mouth ity of (LEXAPRO) 08:41: daily. [place] 20 mg 15 Medical tablet Branch propranoloL 0 Yes 20mg Take 20 mg Univers 20 mg 2-09 by mouth 2 ity of tablet 08:41: (two) [place] 15 times Medical daily. Branch ketorolac 0 Yes [id number] 10mg Take 1 Uni vers 10 mg 2-08 tablet by ity of tablet 00:00: mouth [place] 00 every 6 Medical (six) Branch hours as needed for Pain (scale 7-10). ondansetron 0 Yes [id number] 4mg Take 1 U nivers 4 mg 2-08 tablet by ity of disintegrat 00:00: mouth [place] ing tablet 00 every 8 Medica l (eight) Branch hours as needed for Nausea and Vomiting (N/V). tamsulosin 0 Yes [id number] .4mg Take 1 Un [place] 0.4 mg 24 2-08 capsule by ity of hr capsule 00:00: mouth at [place] as 00 bedtime. Medical Branch ketorolac 0 Yes [id number] 10mg Take 1 Uni vers 10 mg 2-08 tablet by ity of tablet 00:00: mouth [place] 00 every 6 Medical (six) Branch hours as needed for Pain (scale 7-10). ondansetron 0 Yes [id number] 4mg Take 1 U nivers 4 mg 2-08 tablet by ity of disintegrat 00:00: mouth [place] ing tablet 00 every 8 Medica l (eight) Branch hours as needed for Nausea and Vomiting (N/V). tamsulosin 2020-0 Yes [id number] .4mg Take 1 Un [place] 0.4 mg 24 2-08 capsule by ity of hr capsule 00:00: mouth at [place] as 00 bedtime. [facility] Branch ketorolac 0 Yes [id number] 10mg Take 1 [facility] vers 10 mg 2-08 tablet by ity of tablet 00:00: mouth [place] 00 every 6 Medical (six) Branch hours as needed for Pain (scale 7-10). tamsulosin 2020-0 Yes [id number] .4mg Take 1 [facility] [place] 0.4 mg 24 2-08 capsule by ity of hr capsule 00:00: [place] 00 bedtime. [facility] ketorolac 2020-0 Yes [id number] 10mg Take 1 [facility] vers 10 mg 2-08 tablet by ity of tablet 00:00: mouth [place] 00 every 6 Medical (six) Branch hours as needed for Pain (scale 7-10). tamsulosin 2020-0 Yes [id number] .4mg Take 1 [facility] [place] 0.4 mg 24 2-08 capsule by ity of hr capsule 00:00: mouth [place] 00 bedtime. [facility] ketorolac 2020-0 Yes [id number] 10mg Take 1 [facility] vers 10 mg 2-08 tablet by ity of tablet 00:00: mouth [place] 00 every 6 Medical (six) Branch hours as needed for Pain (scale 7-10). tamsulosin 2020-0 Yes [id number] .4mg Take 1 [facility] [place] 0.4 mg 24 2-08 capsule by ity of hr capsule 00:00: mouth [place] 00 bedtime. [facility] ketorolac 2020-0 Yes [id number] 10mg Take 1 [facility] 10 mg 2-08 tablet by ity of tablet 00:00: mouth [place] 00 every 6 Medical (six) Branch hours as needed for Pain (scale 7-10). tamsulosin 2020-0 Yes [id number] .4mg Take 1 [facility] [place] 0.4 mg 24 2-08 capsule by ity of hr capsule 00:00: mouth [place] 00 bedtime. [facility] ketorolac 2020-0 Yes [id number] 10mg Take 1 [facility] vers 10 mg 2-08 tablet by ity of tablet 00:00: mouth [place] 00 every 6 Medical (six) Branch hours as needed for Pain (scale 7-10). tamsulosin 2020-0 Yes [id number] .4mg Take 1 [facility] [place] 0.4 mg 24 2-08 capsule by ity of hr capsule 00:00: mouth [place] 00 bedtime. [facility] ketorolac 2020-0 Yes [id number] 10mg Take 1 [facility] vers 10 mg 2-08 tablet by ity of tablet 00:00: mouth [place] 00 every 6 Medical (six) Branch hours as needed for Pain (scale 7-10). tamsulosin 2021-0 Yes [id number] .4mg Take 1 [facility] [place] 0.4 mg 24 2-08 capsule by ity of hr capsule 00:00: mouth [place] 00 bedtime. [facility] ketorolac 2020-0 Yes [id number] 10mg Take 1 [facility] vers 10 mg 2-08 tablet by ity of tablet 00:00: mouth [place] 00 every 6 Medical (six) Branch hours as needed for Pain (scale 7-10). tamsulosin 2020-0 Yes [id number] .4mg Take 1 [place] 0.4 mg 24 2-08 capsule by ity of hr capsule 00:00: mouth [place] 00 bedtime. [facility] ketorolac 2020-0 Yes [id number] 10mg Take 1 [facility] vers 10 mg 2-08 tablet by ity of tablet 00:00: mouth [place] 00 every 6 Medical (six) Branch hours as needed for Pain (scale 7-10). tamsulosin 2020-0 Yes [id number] .4mg Take 1 [place] 0.4 mg 24 2-08 capsule by ity of hr capsule 00:00: mouth [place] 00 bedtime. [facility] ketorolac 2020-0 Yes [id number] 10mg Take 1 [facility] vers 10 mg 2-08 tablet by ity of tablet 00:00: mouth [place] 00 every 6 Medical (six) Branch hours as needed for Pain (scale 7-10). tamsulosin 2020-0 Yes [id number] .4mg Take 1 [place] 0.4 mg 24 2-08 capsule by ity of hr capsule 00:00: mouth [place] 00 bedtime. [facility] ketorolac 2020-0 Yes [id number] 10mg Take 1 [facility] 10 mg 2-08 tablet by ity of tablet 00:00: mouth [place] 00 every 6 Medical (six) Branch hours as needed for Pain (scale 7-10). tamsulosin 2021-0 Yes [id number] .4mg Take 1 [facility] [place] 0.4 mg 24 2-08 capsule by ity of hr capsule 00:00: mouth [place] 00 bedtime. [facility] ketorolac 2020-0 Yes [id number] 10mg Take 1 [facility] vers 10 mg 2-08 tablet by ity of tablet 00:00: mouth [place] 00 every 6 Medical (six) Branch hours as needed for Pain (scale 7-10). tamsulosin 2020-0 Yes [id number] .4mg Take 1 [place] 0.4 mg 24 2-08 capsule by ity of hr capsule 00:00: mouth [place] 00 bedtime. [facility] ketorolac 2020-0 Yes [id number] 10mg Take 1 [facility] 10 mg 2-08 tablet by ity of tablet 00:00: mouth [place] 00 every 6 Medical (six) Branch hours as needed for Pain (scale 7-10). tamsulosin 2020-0 Yes [id number] .4mg Take 1 [place] 0.4 mg 24 2-08 capsule by ity of hr capsule 00:00: mouth [place] 00 bedtime. [facility] ketorolac 2020-0 Yes [id number] 10mg Take 1 [facility] vers 10 mg 2-08 tablet by ity of tablet 00:00: mouth [place] 00 every 6 Medical (six) Branch hours as needed for Pain (scale 7-10). tamsulosin 2020-0 Yes [id number] .4mg Take 1 [place] 0.4 mg 24 2-08 capsule by ity of hr capsule 00:00: mouth [place] 00 bedtime. [facility] ketorolac 2020-0 Yes [id number] 10mg Take 1 [facility] 10 mg 2-08 tablet by ity of tablet 00:00: mouth [place] 00 every 6 Medical (six) Branch hours as needed for Pain (scale 7-10). tamsulosin 2020-0 Yes [id number] .4mg Take 1 [place] 0.4 mg 24 2-08 capsule by ity of hr capsule 00:00: mouth at [place] 00 bedtime. [facility] ketorolac 2020-0 Yes [id number] 10mg Take 1 [facility] vers 10 mg 2-08 tablet by ity of tablet 00:00: mouth [place] 00 every 6 Medical (six) Branch hours as needed for Pain (scale 7-10). tamsulosin 2021-0 Yes [id number] .4mg Take 1 [place] 0.4 mg 24 2-08 capsule by ity of hr capsule 00:00: mouth at [place] 00 bedtime. [facility] ketorolac 2021-0 Yes [id number] 10mg Take 1 [facility] vers 10 mg 2-08 tablet by ity of tablet 00:00: mouth [place] 00 every 6 Medical (six) Branch hours as needed for Pain (scale 7-10). tamsulosin Yes [id number] .4mg Take 1 [place] 0.4 mg 24 2-08 capsule by ity of hr capsule 00:00: mouth [place] 00 bedtime. [facility] ondansetron 202- No [id number] 4mg Take 1 [facility] 4 mg 2-08 04-07 tablet by ity of disintegrat 00:00: 00:00 [place] tablet 00 :00 every 8 Medica l (eight) Branch hours as needed for Nausea and Vomiting (N/V). hydrOXYzine Yes TAKE ONE [place] 25 mg 2-04 (1) it[facility] of capsule 00:00: CAP[place]LE(S) [place] 00 BY MOUTH Medical EVERY Branch EIGHT HOURS NEEDED. hydrOXYzine Yes TAKE ONE [place] 25 mg 2-04 (1) ity of capsule 00:00: CAP[place](S) [place] 00 BY MOUTH [facility] EVERY Branch EIGHT HOURS NEEDED. hydrOXYzine Yes TAKE ONE [place] 25 mg 2-04 (1) ity of capsule 00:00: CAPSU[place](S) [place] 00 BY MOUTH [facility] EVERY Branch EIGHT HOURS NEEDED. hydrOXYzine Yes TAKE ONE [place] 25 mg 2-04 (1) ity of capsule 00:00: CAP[place](S) [place] 00 BY MOUTH [facility] EVERY Branch EIGHT HOURS NEEDED. hydrOXYzine Yes TAKE ONE [place] 25 mg 2-04 (1) ity of capsule 00:00: CAP[place](S) [place] 00 BY MOUTH [facility] EVERY Branch EIGHT HOURS NEEDED. hydrOXYzine Yes TAKE ONE [place] 25 mg 2-04 (1) ity of capsule 00:00: CAPSULE(S) [place] 00 BY MOUTH Medical EVERY Branch EIGHT HOURS NEEDED. hydrOXYzine 0 Yes TAKE ONE [place] 25 mg 2-04 (1) ity of capsule 00:00: CAPSULE(S) [place] 00 BY MOUTH [facility] EVERY Branch EIGHT HOURS NEEDED. hydrOXYzine Yes TAKE ONE [place] 25 mg 2-04 (1) ity of capsule 00:00: CAPSULE(S) [place] 00 BY MOUTH [facility] EVERY Branch EIGHT HOURS NEEDED. hydrOXYzine Yes TAKE ONE [place] 25 mg 2-04 (1) ity of capsule 00:00: CAPSULE(S) [place] 00 BY MOUTH [facility] EVERY Branch EIGHT HOURS NEEDED. hydrOXYzine Yes TAKE ONE [place] 25 mg 2-04 (1) ity of capsule 00:00: CAPSULE(S) [place] 00 BY MOUTH [facility] EVERY Branch EIGHT HOURS NEEDED. hydrOXYzine Yes TAKE ONE [place] 25 mg 2-04 (1) ity of capsule 00:00: CAPSULE(S) [place] 00 BY MOUTH [facility] EVERY Branch EIGHT HOURS NEEDED. hydrOXYzine Yes TAKE ONE [facility] [place] 25 mg 2-04 (1) ity of capsule 00:00: CAPSULE(S) [place] 00 BY MOUTH Medical EVERY Branch EIGHT HOURS NEEDED. hydrOXYzine Yes TAKE ONE [place] 25 mg 2-04 (1) ity of capsule 00:00: CAPSULE(S) [place] 00 BY MOUTH Medical EVERY Branch EIGHT HOURS NEEDED. hydrOXYzine Yes TAKE ONE [place] 25 mg 2-04 (1) ity of capsule 00:00: CAPSULE(S) [place] 00 BY MOUTH [facility] EVERY Branch EIGHT HOURS NEEDED. hydrOXYzine Yes TAKE ONE [place] 25 mg 2-04 (1) ity of capsule 00:00: CAPSULE(S) [place] 00 BY MOUTH Medical EVERY Branch EIGHT HOURS NEEDED. hydrOXYzine Yes TAKE ONE [place] 25 mg 2-04 (1) ity of capsule 00:00: CAPSULE(S) [place] 00 BY MOUTH Medical EVERY Branch EIGHT HOURS NEEDED. hydrOXYzine Yes TAKE ONE [place] 25 mg 2-04 (1) ity of capsule 00:00: CAPSULE(S) [place] 00 BY MOUTH Medical EVERY Branch EIGHT HOURS NEEDED. hydrOXYzine Yes TAKE ONE [place] 25 mg 2-04 (1) ity of capsule 00:00: CAPSULE(S) [place] 00 BY MOUTH Medical EVERY Branch EIGHT HOURS NEEDED. levothyroxi 2021-0 Yes TAKE ONE [place] 25 mcg 1-08 (1) ity of tablet 00:00: TABLET(S) [place] 00 BY MOUTH Medical ONCE A DAY Branch IN THE MORNING ON AN EMPTY STOMACH. levothyroxi 2020-0 Yes TAKE ONE [place] ne 25 mcg 1-08 (1) ity of tablet 00:00: TABLET(S) [place] 00 BY MOUTH Medical ONCE A DAY Branch IN THE MORNING ON AN EMPTY STOMACH. levothyroxi 2020-0 Yes TAKE ONE [place] 25 mcg 1-08 (1) ity of tablet 00:00: TABLET(S) [place] 00 BY MOUTH Medical ONCE A DAY Branch IN THE MORNING ON AN EMPTY STOMACH. levothyroxi 2020-0 Yes TAKE ONE [place] ne 25 mcg 1-08 (1) ity of tablet 00:00: TABLET(S) [place] 00 BY MOUTH Medical ONCE A DAY Branch IN THE MORNING ON AN EMPTY STOMACH. levothyroxi 2020-0 Yes TAKE ONE [place] 25 mcg 1-08 (1) ity of tablet 00:00: TABLET(S) [place] 00 BY MOUTH Medical ONCE A DAY Branch IN THE MORNING ON AN EMPTY STOMACH. levothyroxi 2020-0 Yes TAKE ONE [place] ne 25 mcg 1-08 (1) ity of tablet 00:00: TABLET(S) [place] 00 BY MOUTH Medical ONCE A DAY Branch IN THE MORNING ON AN EMPTY STOMACH. levothyroxi 2020-0 Yes TAKE ONE [place] 25 mcg 1-08 (1) ity of tablet 00:00: TABLET(S) [place] 00 BY MOUTH Medical ONCE A DAY Branch IN THE MORNING ON AN EMPTY STOMACH. levothyroxi 2020-0 Yes TAKE ONE [place] ne 25 mcg 1-08 (1) ity of tablet 00:00: TABLET(S) [place] 00 BY MOUTH Medical ONCE A DAY Branch IN THE MORNING ON AN EMPTY STOMACH. levothyroxi 2020-0 Yes TAKE ONE [place] 25 mcg 1-08 (1) ity of tablet 00:00: TABLET(S) [place] 00 BY MOUTH Medical ONCE A DAY Branch IN THE MORNING ON AN EMPTY STOMACH. levothyroxi 2020-0 Yes TAKE ONE [place] 25 mcg 1-08 (1) ity of tablet 00:00: TABLET(S) [place] 00 BY MOUTH Medical ONCE A DAY Branch IN THE MORNING ON AN EMPTY STOMACH. levothyroxi 0 Yes TAKE ONE [place] 25 mcg 1-08 (1) ity of tablet 00:00: TABLET(S) [place] 00 BY MOUTH Medical ONCE A DAY Branch IN THE MORNING ON AN EMPTY STOMACH. levothyroxi 0 Yes TAKE ONE [place] 25 mcg 1-08 (1) ity of tablet 00:00: TABLET(S) [place] 00 BY MOUTH Medical ONCE A DAY Branch IN THE MORNING ON AN EMPTY STOMACH. levothyroxi 0 Yes TAKE ONE [place] 25 mcg 1-08 (1) ity of tablet 00:00: TABLET(S) [place] 00 BY MOUTH Medical ONCE A DAY Branch IN THE MORNING ON AN EMPTY STOMACH. levothyroxi Yes TAKE ONE [place] 25 mcg 1-08 (1) ity of tablet 00:00: TABLET(S) [place] 00 BY MOUTH Medical ONCE A DAY Branch IN THE MORNING ON AN EMPTY STOMACH. levothyroxi Yes TAKE ONE [place] 25 mcg 1-08 (1) ity of tablet 00:00: TABLET(S) [place] 00 BY MOUTH Medical ONCE A DAY Branch IN THE MORNING ON AN EMPTY STOMACH. levothyroxi Yes TAKE ONE [place] 25 mcg 1-08 (1) ity of tablet 00:00: TABLET(S) [place] 00 BY MOUTH Medical ONCE A DAY Branch IN THE MORNING ON AN EMPTY STOMACH. levothyroxi Yes TAKE ONE [place] 25 mcg 1-08 (1) ity of tablet 00:00: TABLET(S) [place] 00 BY MOUTH Medical ONCE A DAY Branch IN THE MORNING ON AN EMPTY STOMACH. levothyroxi 0 Yes TAKE ONE [place] 25 mcg 1-08 (1) ity of tablet 00:00: TABLET(S) [place] 00 BY MOUTH Medical ONCE A DAY Branch IN THE MORNING ON AN EMPTY STOMACH. Amphetamine Amphetamine 2020-1 No 1{table BID Amphetamin Common -Dextroamph -Dextroamph 2-30 t} e-Dextroam [facility] etamine 10 etamine 10 00:00: phetamine - [facility] MG MG 00 10 MG [facility] Amphetamine Amphetamine 2019-1 No 1{table BID Amphetamin Common -Dextroamph -Dextroamph 2-30 t} e-Dextroam [facility] etamine 10 etamine 10 00:00: phetamine - [facility] MG MG 00 10 MG [facility] Amphetamine Amphetamine 2020- No 1{table BID Amphetamin -Dextroamph -Dextroamph 2-30 t} e-Dextroam etamine 10 etamine 10 00:00: phetamine [facility] MG 00 10 MG Amphetamine Amphetamine 2020- No 1{table BID Amphetamin -Dextroamph -Dextroamph 2-30 t} e-Dextroam etamine 10 etamine 10 00:00: phetamine [facility] MG 00 10 MG Amphetamine Amphetamine 2019- No 1{table BID Amphetamin -Dextroamph -Dextroamph 2-30 t} e-Dextroam etamine 10 etamine 10 00:00: phetamine [facility] MG 00 10 MG Amphetamine Amphetamine 2019- No 1{table BID Amphetamin -Dextroamph -Dextroamph 2-30 t} e-Dextroam etamine 10 etamine 10 00:00: phetamine [facility] MG 00 10 MG Amphetamine Amphetamine 2020- No 1{table BID Amphetamin -Dextroamph -Dextroamph 2-30 t} e-Dextroam etamine 10 etamine 10 00:00: phetamine [facility] MG 00 10 MG Amphetamine Amphetamine 2019- No 1{table BID Amphetamin -Dextroamph -Dextroamph 2-30 t} e-Dextroam etamine 10 etamine 10 00:00: phetamine [facility] MG 00 10 MG Amphetamine Amphetamine 2020- No 1{table BID Amphetamin -Dextroamph -Dextroamph 2-30 t} e-Dextroam etamine 10 etamine 10 00:00: phetamine [facility] MG 00 10 MG Amphetamine Amphetamine 2020- No 1{table BID Amphetamin -Dextroamph -Dextroamph 2-30 t} e-Dextroam etamine 10 etamine 10 00:00: phetamine MG MG 00 10 MG Amphetamine Amphetamine 2020- No 1{table BID Amphetamin -Dextroamph -Dextroamph 2-30 t} e-Dextroam etamine 10 etamine 10 00:00: phetamine MG MG 00 10 MG Amphetamine Amphetamine 2020- No 1{table BID Amphetamin -Dextroamph -Dextroamph 2-30 t} e-Dextroam etamine 10 etamine 10 00:00: phetamine [facility] MG 00 10 MG Amphetamine Amphetamine 2019-06 No 1{table BID Amphetamin -Dextroamph -Dextroamph 2-30 t} e-Dextroam etamine 10 etamine 10 00:00: phetamine MG MG 00 10 MG Amphetamine Amphetamine 2019-06 No 1{table BID Amphetamin -Dextroamph -Dextroamph 2-30 t} e-Dextroam etamine 10 etamine 10 00:00: phetamine [facility] MG 00 10 MG Amphetamine Amphetamine 2019-06 No 1{table BID Amphetamin -Dextroamph -Dextroamph 2-30 t} e-Dextroam etamine 10 etamine 10 00:00: phetamine [facility] MG 00 10 MG Amphetamine Amphetamine 2019-06 No 1{table BID Amphetamin Common -Dextroamph -Dextroamph 2-30 t} e-Dextroam [facility] etamine 10 etamine 10 00:00: phetamine - [facility] MG MG 00 10 MG [facility] albuterol 2019-06 Yes INHALE ONE [place] 90 2-17 (1) PUFF ity of mcg/actuati 00:00: BY MOUTH [place] on inhaler 00 EVERY 4-6 Medi erick HOURS Branch NEEDED FOR COUGH/SHOR TNESS OF BREATH. albuterol 2019-06 Yes INHALE ONE [place] 90 2-17 (1) PUFF ity of mcg/actuati 00:00: BY MOUTH [place] inhaler 00 EVERY 4-6 Medi erick HOURS Branch NEEDED FOR COUGH/SHOR TNESS OF BREATH. albuterol 2019-06 Yes INHALE ONE [place] 90 2-17 (1) PUFF ity of mcg/actuati 00:00: BY [place]OUTH [place] inhaler 00 EVERY 4-6 Medi erick HOURS Branch NEEDED FOR COUGH/SHOR TNESS OF BREATH. albuterol 2019-06 Yes INHALE ONE [place] 90 2-17 (1) PUFF ity of mcg/actuati 00:00: BY MOUTH [place] inhaler 00 EVERY 4-6 Medi erick HOURS Branch NEEDED FOR COUGH/SHOR TNESS OF BREATH. albuterol 2019-06 Yes INHALE ONE [place] 90 2-17 (1) PUFF ity of mcg/actuati 00:00: BY MOUTH [place] inhaler 00 EVERY 4-6 Medi erick HOURS Branch NEEDED FOR COUGH/SHOR TNESS OF BREATH. albuterol 2019-06 Yes INHALE ONE [place] 90 2-17 (1) PUFF ity of mcg/actuati 00:00: BY MOUTH [place] inhaler 00 EVERY 4-6 Medi erick HOURS Branch NEEDED FOR COUGH/SHOR TNESS OF BREATH. albuterol 2019-06 Yes INHALE ONE [place] 90 2-17 (1) PUFF ity of mcg/actuati 00:00: BY MOUTH [place] inhaler 00 EVERY 4-6 Medi erick HOURS Branch NEEDED FOR COUGH/SHOR TNESS OF BREATH. albuterol 2019-06 Yes INHALE ONE [place] 90 2-17 (1) PUFF ity of mcg/actuati 00:00: BY MOUTH [place] inhaler 00 EVERY 4-6 Medi erick HOURS Branch NEEDED FOR COUGH/SHOR TNESS OF BREATH. albuterol 2019-06 Yes INHALE ONE [place] 90 2-17 (1) PUFF ity of mcg/actuati 00:00: BY MOUTH [place] on inhaler 00 EVERY 4-6 Medi erick HOURS Branch NEEDED FOR COUGH/SHOR TNESS OF BREATH. albuterol 2019-06 Yes INHALE ONE [place] 90 2-17 (1) PUFF ity of mcg/actuati 00:00: BY MOUTH [place] inhaler 00 EVERY 4-6 Medi erick HOURS Branch NEEDED FOR COUGH/SHOR TNESS OF BREATH. albuterol 2019-06 Yes INHALE ONE [place] 90 2-17 (1) PUFF ity of mcg/actuati 00:00: BY MOUTH [place] inhaler 00 EVERY 4-6 Medi erick HOURS Branch NEEDED FOR COUGH/SHOR TNESS OF BREATH. albuterol 2019-06 Yes INHALE ONE [place] 90 2-17 (1) PUFF ity of mcg/actuati 00:00: BY MOUTH [place] inhaler 00 EVERY 4-6 Medi erick HOURS Branch NEEDED FOR COUGH/SHOR TNESS OF BREATH. albuterol 2019-06 Yes INHALE ONE [place] 90 2-17 (1) PUFF ity of mcg/actuati 00:00: BY MOUTH [place] inhaler 00 EVERY 4-6 Medi erick HOURS Branch NEEDED FOR COUGH/SHOR TNESS OF BREATH. albuterol 2019-06 Yes INHALE ONE [place] 90 2-17 (1) PUFF ity of mcg/actuati 00:00: BY MOUTH [place] inhaler 00 EVERY 4-6 Medi erick HOURS Branch NEEDED FOR COUGH/SHOR TNESS OF BREATH. albuterol 2019-06 Yes INHALE ONE [place] 90 2-17 (1) PUFF ity of mcg/actuati 00:00: BY [place]OUTH [place] inhaler 00 EVERY 4-6 Medi erick HOURS Branch NEEDED FOR COUGH/SHOR TNESS OF BREATH. albuterol 2019-06 Yes INHALE ONE [place] 90 2-17 (1) PUFF ity of mcg/actuati 00:00: BY MOUTH [place] inhaler 00 EVERY 4-6 Medi erick HOURS Branch NEEDED FOR COUGH/SHOR TNESS OF BREATH. albuterol 2019-06 Yes INHALE ONE [place] 90 2-17 (1) PUFF ity of mcg/actuati 00:00: BY MOUTH [place] inhaler 00 EVERY 4-6 Medi erick HOURS Branch NEEDED FOR COUGH/SHOR TNESS OF BREATH. albuterol 2019-06 Yes INHALE ONE [place] 90 2-17 (1) PUFF ity of mcg/actuati 00:00: BY MOUTH [place] inhaler 00 EVERY 4-6 Medi erick HOURS Branch NEEDED FOR COUGH/SHOR TNESS OF BREATH. methylPREDN 2019-06 Yes USE [facility] ers ISolone 4 2-16 DIRECTED ity of mg tablets 00:00: BY PACKAGE [place] 00 INSTRUCTIO Medical NS. Branch methylPREDN 2019-06 Yes USE Univ ers ISolone 4 -16 DIRECTED ity of mg tablets 00:00: BY PACKAGE [place] 00 [facility] Medical NS. Branch methylPREDN 2019-06- No USE Uni vers ISolone 4 2-16 04-07 DIRECTED ity o f mg tablets 00:00: 00:00 BY PACKAGE [place] 00 :00 [employer]STRU[employer] Medical NS. Branch ProAir HFA ProAir HFA 2019-06- No ProAir HFA 108 (90 108 (90 2-16 15 108 (90 Base) Base) 00:00: 00:00 Base) MCG/ACT MCG/ACT 00 :00 MCG/ACT ProAir HFA ProAir HFA 2019-06- No ProAir HFA 108 (90 108 (90 2-16 01-15 108 (90 Base) Base) 00:00: 00:00 Base) MCG/ACT MCG/ACT 00 :00 MCG/ACT ProAir HFA ProAir HFA 2019-06- No ProAir HFA 108 (90 108 (90 2-16 01-15 108 (90 Base) Base) 00:00: 00:00 Base) MCG/ACT MCG/ACT 00 :00 MCG/ACT ProAir HFA ProAir HFA 2019-06- No ProAir HFA 108 (90 108 (90 2-16 01-15 108 (90 Base) Base) 00:00: 00:00 Base) MCG/ACT MCG/ACT 00 :00 MCG/ACT ProAir HFA ProAir HFA 2019-06- No ProAir HFA 108 (90 108 (90 2-16 01-15 108 (90 Base) Base) 00:00: 00:00 Base) MCG/ACT MCG/ACT 00 :00 MCG/ACT Medrol 4 MG Medrol 4 MG 2019-06- No Medrol 4 2-16 12-22 MG 00:00: 00:00 00 :00 Medrol 4 MG Medrol 4 MG 2019-06- No Medrol 4 2-16 12-22 MG 00:00: 00:00 00 :00 benzonatate 2019-06 Yes TAKE ONE [place] 100 mg 2-12 (1) ity of capsule 00:00: CAPSULE(S) [place] 00 BY MOUTH Medical THREE Branch TIMES A DAY NEEDED FOR COUGH. benzonatate 2019-06 Yes TAKE ONE [place] 100 mg 2-12 (1) ity of capsule 00:00: CAPSULE(S) [place] 00 BY MOUTH Medical THREE Branch TIMES A DAY NEEDED FOR COUGH. benzonatate 2019-06- No TAKE ONE U [facility] 100 mg 2-12 04-07 (1) ity of capsule 00:00: 00:00 CAPSULE(S) [place] 00 :00 BY MOUTH Medical THREE Branch TIMES A DAY NEEDED FOR COUGH. benzonatate 2019-06 Yes [id number] 100mg Take 1 [facility] 100 mg 2-11 capsule by ity of capsule 00:00: mouth 3 [place] 00 (three) Medical times Branch daily as needed for Cough. chlorphenir 2019-06 Yes [id number] 4mg Take 1 [facility] amine 4 mg 2-11 tablet by ity of tablet 00:00: mouth [place] 00 every 6 Medical (six) Branch hours as needed for Allergies or Runny nose. multivitami 2019-06 Yes [id number] 1{capsu Take 1 [facility] n capsule 2-11 le} capsule by ity of 00:00: mouth [place] 00 daily. Medical Branch calcium-mag 2019-06 Yes [id number] Take as [facility] nesium-zinc 2-11 directed ity of 333-133-8.3 00:00: for daily [place] mg Tab 00 dose. Medical Branch ondansetron 2019-06 Yes [id number] 4mg Take 1 [facility] 4 mg 2-11 tablet by ity of disintegrat 00:00: mouth [place] ing tablet 00 every 8 Medica l (eight) Branch hours as needed for Nausea and Vomiting (N/V). azithromyci 2019-06 Yes Univer s n 500 mg 2-08 ity of tablet 00:00: [place] 00 Medical Branch azithromyci 2019-06 Yes Univer s n 500 mg 2-08 ity of tablet 00:00: [place] 00 Medical Branch azithromyci 2019-06- No Unive rs n 500 mg 2-08 04-07 ity of tablet 00:00: 00:00 [place] 00 :00 Medical Branch Azithromyci Azithromyci 2019-06 2020- No 1{table QD Azithromyc Common n 500 MG n 500 MG 2-02 02-13 t} in 500 MG S pirit 00:00: 00:00 - [facility] 00 :00 [facility] Azithromyci Azithromyci 2019- 2020- No 1{table QD Azithromyc Common n 500 MG n 500 MG 2-02 02-13 t} in 500 MG S pirit 00:00: 00:00 - [facility] 00 :00 [facility] Azithromyci Azithromyci 2019- 2020- No 1{table QD Azithromyc Common n 500 MG n 500 MG 2-02 02-13 t} in 500 MG S pirit 00:00: 00:00 - [facility] 00 :00 [facility] Adderall 10 Adderall 10 2019-06 No 1{table BID Adderall Common MG MG 1-30 t} 10 MG [facility] 00:00: - [facility] 00 [facility] Adderall 10 Adderall 10 2019-06 No 1{table BID Adderall Common MG MG 1-30 t} 10 MG [facility] 00:00: - [facility] 00 [facility] Adderall 10 Adderall 10 2019-06 No 1{table BID Adderall MG MG 1-30 t} 10 MG 00:00: 00 Adderall 10 Adderall 10 2019-06 No 1{table BID Adderall MG MG 1-30 t} 10 MG 00:00: 00 Adderall 10 Adderall 10 2019-06 No 1{table BID Adderall MG MG 1-30 t} 10 MG 00:00: 00 Adderall 10 Adderall 10 2019-06 No 1{table BID Adderall MG MG 1-30 t} 10 MG 00:00: 00 Adderall 10 Adderall 10 2019-06 No 1{table BID Adderall MG MG 1-30 t} 10 MG 00:00: 00 Adderall 10 Adderall 10 2019-06 No 1{table BID Adderall MG MG 1-30 t} 10 MG 00:00: 00 Adderall 10 Adderall 10 2019-06 No 1{table BID Adderall MG MG 1-30 t} 10 MG 00:00: 00 Adderall 10 Adderall 10 2019-06 No 1{table BID Adderall MG MG 1-30 t} 10 MG 00:00: 00 Adderall 10 Adderall 10 2019-06 No 1{table BID Adderall MG MG 1-30 t} 10 MG 00:00: 00 Adderall 10 Adderall 10 2019-06 No 1{table BID Adderall MG MG 1-30 t} 10 MG 00:00: 00 Adderall 10 Adderall 10 2019-06 No 1{table BID Adderall MG MG 1-30 t} 10 MG 00:00: 00 Adderall 10 Adderall 10 2019-06 No 1{table BID Adderall MG MG 1-30 t} 10 MG 00:00: 00 Adderall 10 Adderall 10 2020-1 No 1{table BID Adderall MG MG 1-30 t} 10 MG 00:00: 00 Adderall 10 Adderall 10 2020-1 No 1{table BID Adderall Common MG MG 1-30 t} 10 MG [facility] 00:00: [facility] Amphetamine Amphetamine 2020-1 Yes [place] 1 tablet Common -Dextroamph -Dextroamph 0-12 [facility] etamine etamine 00:00: [facility] Adderall Adderall 2020-0 Yes [place] 1 tablet Common 9-15 [facility] in the [facility] 00:00: morning [facility] HydrOXYzine HydrOXYzine 2020-0 Yes [place] 1 capsule Common Pamoate Pamoate 9-15 [facility] as needed Spi rit 00:00: [facility] Gabapentin Gabapentin 2020-0 Yes [place] 1 capsule Common 3-17 [facility] once [facility] 00:00: today, then 1 [facility] Gabapentin Gabapentin 2020-0 No BID Gabapentin Common 300 MG 300 MG 3-17 300 MG [facility] 00:00: [facility] Gabapentin Gabapentin 2020-0 No BID Gabapentin Common 300 MG 300 MG 3-17 300 MG [facility] 00:00: [facility] Gabapentin Gabapentin 2020-0 No BID Gabapentin 300 MG 300 MG 3-17 300 MG 00:00: 00 Gabapentin Gabapentin 2020-0 No BID Gabapentin 300 MG 300 MG 3-17 300 MG 00:00: 00 Gabapentin Gabapentin 2020-0 No BID Gabapentin 300 MG 300 MG 3-17 300 MG 00:00: 00 Gabapentin Gabapentin 2020-0 No BID Gabapentin 300 MG 300 MG 3-17 300 MG 00:00: 00 Gabapentin Gabapentin 2020-0 No BID Gabapentin 300 MG 300 MG 3-17 300 MG 00:00: 00 Gabapentin Gabapentin 2020-0 No BID Gabapentin 300 MG 300 MG 3-17 300 MG 00:00: 00 Gabapentin Gabapentin 2020-0 No BID Gabapentin 300 MG 300 MG 3-17 300 MG 00:00: 00 Gabapentin Gabapentin 2020-0 No BID Gabapentin 300 MG 300 MG 3-17 300 MG 00:00: 00 Gabapentin Gabapentin 2020-0 No BID Gabapentin 300 MG 300 MG 3-17 300 MG 00:00: 00 Gabapentin Gabapentin 2020-0 No BID Gabapentin 300 MG 300 MG 3-17 300 MG 00:00: 00 Gabapentin Gabapentin 2020-0 No BID Gabapentin 300 MG 300 MG 3-17 300 MG 00:00: 00 Gabapentin Gabapentin 2020-0 No BID Gabapentin 300 MG 300 MG 3-17 300 MG 00:00: 00 Gabapentin Gabapentin 2020-0 No BID Gabapentin 300 MG 300 MG 3-17 300 MG 00:00: 00 Gabapentin Gabapentin 2020-0 No BID Gabapentin 300 MG 300 MG 3-17 300 MG 00:00: 00 Gabapentin Gabapentin 2020-0 No BID Gabapentin 300 MG 300 MG 3-17 300 MG 00:00: 00 Gabapentin Gabapentin 2020-0 No BID Gabapentin 300 MG 300 MG 3-17 300 MG 00:00: 00 Gabapentin Gabapentin 2020-0 No BID Gabapentin 300 MG 300 MG 3-17 300 MG 00:00: 00 Gabapentin Gabapentin 2020-0 No BID Gabapentin 300 MG 300 MG 3-17 300 MG 00:00: 00 Gabapentin Gabapentin 2020-0 No BID Gabapentin Common 300 MG 300 MG 3-17 300 MG [facility] 00:[facility]: - [facility] 00 [facility] Valacyclovi Valacyclovi 2019-0 Yes Jodee 1 tablet Common r HCl r HCl 3-13 [facility] 00:00: - [facility] 00 [facility] Valacyclovi Valacyclovi 2019-0 No 1{table TID Valacyclov Common r HCl 1 GM r HCl 1 GM 3-13 t} ir HCl 1 [facility] 00:00: GM - [facility] 00 [facility] Valacyclovi Valacyclovi 2019-0 No 1{table TID Valacyclov Common r HCl 1 GM r HCl 1 GM 3-13 t} ir HCl 1 [facility] 00:00: GM - [facility] 00 [facility] Valacyclovi Valacyclovi 2019-0 No 1{table TID Valacyclov r HCl 1 GM r HCl 1 GM 3-13 t} ir HCl 1 00:00: GM 00 Valacyclovi Valacyclovi 2019-0 No 1{table TID Valacyclov r HCl 1 GM r HCl 1 GM 3-13 t} ir HCl 1 00:00: GM 00 Valacyclovi Valacyclovi 2019-0 No 1{table TID Valacyclov r HCl 1 GM r HCl 1 GM 3-13 t} ir HCl 1 00:00: GM 00 Valacyclovi Valacyclovi 2019-0 No 1{table TID Valacyclov r HCl 1 GM r HCl 1 GM 3-13 t} ir HCl 1 00:00: GM 00 Valacyclovi Valacyclovi 2020-0 No 1{table TID Valacyclov r HCl 1 GM r HCl 1 GM 3-13 t} ir HCl 1 00:00: GM 00 Valacyclovi Valacyclovi 2020-0 No 1{table TID Valacyclov r HCl 1 GM r HCl 1 GM 3-13 t} ir HCl 1 00:00: GM 00 Valacyclovi Valacyclovi 2020-0 No 1{table TID Valacyclov r HCl 1 GM r HCl 1 GM 3-13 t} ir HCl 1 00:00: GM 00 Valacyclovi Valacyclovi 2020-0 No 1{table TID Valacyclov r HCl 1 GM r HCl 1 GM 3-13 t} ir HCl 1 00:00: GM 00 Valacyclovi Valacyclovi 2020-0 No 1{table TID Valacyclov r HCl 1 GM r HCl 1 GM 3-13 t} ir HCl 1 00:00: GM 00 Valacyclovi Valacyclovi 2020-0 No 1{table TID Valacyclov r HCl 1 GM r HCl 1 GM 3-13 t} ir HCl 1 00:00: GM 00 Valacyclovi Valacyclovi 2020-0 No 1{table TID Valacyclov r HCl 1 GM r HCl 1 GM 3-13 t} ir HCl 1 00:00: GM 00 valACYclovi valACYclovi 2020-0 No 1{table TID valACYclov r HCl 1 GM r HCl 1 GM 3-13 t} ir HCl 1 00:00: GM 00 valACYclovi valACYclovi 2020-0 No 1{table TID valACYclov r HCl 1 GM r HCl 1 GM 3-13 t} ir HCl 1 00:00: GM 00 valACYclovi valACYclovi 2020-0 No 1{table TID valACYclov r HCl 1 GM r HCl 1 GM 3-13 t} ir HCl 1 00:00: GM 00 valACYclovi valACYclovi 2020-0 No 1{table TID valACYclov r HCl 1 GM r HCl 1 GM 3-13 t} ir HCl 1 00:00: GM 00 valACYclovi valACYclovi 2020-0 No 1{table TID valACYclov r HCl 1 GM r HCl 1 GM 3-13 t} ir HCl 1 00:00: GM 00 valACYclovi valACYclovi 2020-0 No 1{table TID valACYclov r HCl 1 GM r HCl 1 GM 3-13 t} ir HCl 1 00:00: GM 00 Valacyclovi Valacyclovi 2019-0 No 1{table TID Valacyclov r HCl 1 GM r HCl 1 GM 3-13 t} ir HCl 1 00:00: GM 00 Valacyclovi Valacyclovi 2019-0 No 1{table TID Valacyclov Common r HCl 1 GM r HCl 1 GM 3-13 t} ir HCl 1 [facility] 00:00: GM - [facility] 00 [facility] dextroamphe 2015-06 Yes 10mg Take 10 mg Univers tamine-amph 1-01 by mouth ity of etamine 00:54: every [place] (ADDERALL) 60 morning. Medic al 10 mg Branch tablet 2015-06 Yes Take by [facility] VIT37/IRON/ 06-24 mouth. ity of FOLIC ACID 00:54: [place] (PRENATA 60 Medical ORAL) [place] dextroamphe 2015-06 Yes 10mg Take 10 mg Univers tamine-amph 1-01 by mouth ity of etamine 00:54: every [place] (ADDERALL) 60 morning. Medic al 10 mg Branch tablet 2015-06 Yes Take by [facility] VIT37/IRON/ 06-24 mouth. ity of FOLIC ACID 00:54: [place] (PRENATA 60 Medical ORAL) [place] dextroamphe 2015-06 Yes 10mg Take 10 mg Univers tamine-amph 1-01 by mouth ity of etamine 00:54: every [place] (ADDERALL) 60 morning. Medic al 10 mg Branch tablet 2015-06 Yes Take by [facility] VIT37/IRON/ 06-24 mouth. ity of FOLIC ACID 00:54: [place] (PRENATA 60 Medical ORAL) [place] dextroamphe 2015-06 Yes 10mg Take 10 mg Univers tamine-amph 1-01 by mouth ity of etamine 00:54: every [place] (ADDERALL) 60 morning. Medic al 10 mg Branch tablet 2015-06 Yes Take by [facility] VIT37/IRON/ 06-24 mouth. ity of FOLIC ACID 00:54: [place] (PRENATA 60 Medical ORAL) [place] dextroamphe 2015-06 Yes 10mg Take 10 mg Univers tamine-amph 1-01 by mouth ity of etamine 00:54: every [place] (ADDERALL) 60 morning. Medic al 10 mg Branch tablet 2015-06 Yes Take by [facility] VIT37/IRON/ 06-24 mouth. ity of FOLIC ACID 00:54: [place] (PRENATA 60 Medical ORAL) Branch dextroamphe 2015-06 Yes 10mg Take 10 mg Univers tamine-amph 06-24 by mouth ity of etamine 00:54: every [place] (ADDERALL) 60 morning. Medic al 10 mg Branch tablet 2015-06 Yes Take by [facility] s VIT37/IRON/ 06-24 mouth. ity of FOLIC ACID 00:54: [place] (PRENATA 60 Medical ORAL) Branch dextroamphe 2015-06 Yes 10mg Take 10 mg Univers tamine-amph 06-24 by mouth ity of etamine 00:54: every [place] (ADDERALL) 60 morning. Medic al 10 mg Branch tablet 2015-06 Yes Take by [facility] [employer] VIT37/IRON/ 06-24 mouth. ity of FOLIC ACID 00:54: [place] (PRENATA 60 Medical ORAL) Branch ondansetron 2015-06 Yes 4mg Take 1 Univ ers (ZOFRAN, 0-31 tablet by ity of HYDROCHLORI 00:00: mouth [place] DE,) 4 mg 00 every 8 Medical tablet (eight) Branch hours. ondansetron 2015-06 Yes 4mg Take 1 Univ ers (ZOFRAN, 0-31 tablet by ity of HYDROCHLORI 00:00: mouth [place] DE,) 4 mg 00 every 8 Medical tablet (eight) Branch hours. ondansetron 2015-06 Yes 4mg Take 1 Univ ers (ZOFRAN, 0-31 tablet by ity of HYDROCHLORI 00:00: mouth [place] DE,) 4 mg 00 every 8 Medical tablet (eight) Branch hours. ondansetron 2015-06 Yes 4mg Take 1 Univ ers (ZOFRAN, 0-31 tablet by ity of HYDROCHLORI 00:00: mouth [place] DE,) 4 mg 00 every 8 Medical tablet (eight) Branch hours. ondansetron 2015-06 Yes 4mg Take 1 Univ ers (ZOFRAN, 0-31 tablet by ity of HYDROCHLORI 00:00: mouth [place] DE,) 4 mg 00 every 8 Medical tablet (eight) Branch hours. ondansetron 2015-06 Yes 4mg Take 1 Univ ers (ZOFRAN, 0-31 tablet by ity of HYDROCHLORI 00:00: mouth [place] DE,) 4 mg 00 every 8 Medical tablet (eight) Branch hours. ondansetron 2016 Yes 4mg Take 1 Univ ers (ZOFRAN, 0-31 tablet by ity of HYDROCHLORI 00:00: mouth [place] DE,) 4 mg 00 every 8 Medical tablet (eight) Branch hours. Levothyroxi Levothyroxi Yes Jodee 1 tablet Common ne Sodium ne Sodium [facility] on [facility] Spi rit empty - [facility] stomach in [facility] Propranolol Propranolol Yes Jodee 1 tablet Common HCl HCl [facility] empty - [facility] stomach [facility] Duexis Duexis Yes Jodee 1 tablet Commo n [facility] Belsomra Belsomra Yes Jodee 1 tablet C ommon [facility] at bedtime [facility] as needed [facility] Zantac Zantac Yes Jodee 1 tablet Commo n [facility] at bedtime [facility] Cetirizine Cetirizine Yes Jodee 1 tablet Common HCl HCl [facility] Escitalopra Escitalopra Yes Jodee 1 tablet Common m Oxalate m Oxalate [facility] it [facility] Levothyroxi Levothyroxi No QD Levothyrox Common ne Sodium ne Sodium ine Sodium Spirit 25 MCG 25 MCG 25 MCG [facility] HydrOXYzine HydrOXYzine No HydrOXYzin Common Pamoate 25 Pamoate 25 e Pamoate Spirit MG MG 25 MG [facility] Cetirizine Cetirizine No 1{table QD Cetirizine Common HCl 10 MG HCl 10 MG t} HCl 10 MG [facility] Zantac 150 Zantac 150 No 1{table QD Zantac 150 Common MG MG t_at_be MG Spirit dtime} [facility] Propranolol Propranolol No 1{table BID Propranolo Common HCl 20 MG HCl 20 MG t_on_an l HCl 20 [facility] _empty_ MG - [facility] stomach [facility] Duexis Duexis No 1{table Duexis Common 800-26.6 MG 800-26.6 MG t} 800-26.6 Spirit MG [facility] Escitalopra Escitalopra No 1{table QD Escitalopr Common m Oxalate m Oxalate t} am Oxalate [facility] 20 MG 20 MG 20 MG [facility] Levothyroxi Levothyroxi No QD Levothyrox Common ne Sodium ne Sodium ine Sodium [facility] 25 MCG 25 MCG 25 MCG [facility] HydrOXYzine HydrOXYzine No HydrOXYzin Common Pamoate 25 Pamoate 25 e Pamoate [facility] MG MG 25 MG [facility] Cetirizine Cetirizine No 1{table QD Cetirizine Common HCl 10 MG HCl 10 MG t} HCl 10 MG [facility] Zantac 150 Zantac 150 No 1{table QD Zantac 150 Common MG MG t_at_be MG Spirit dtime} [facility] Propranolol Propranolol No 1{table BID Propranolo Common HCl 20 MG HCl 20 MG t_on_an l HCl 20 [facility] _empty_ MG [facility] stomach [facility] Duexis Duexis No 1{table Duexis Common 800-26.6 MG 800-26.6 MG t} 800-26.6 [facility] MG [facility] Escitalopra Escitalopra No 1{table QD Escitalopr Common m Oxalate m Oxalate t} am Oxalate [facility] 20 MG 20 MG 20 MG [facility] HydrOXYzine HydrOXYzine No HydrOXYzin Pamoate 25 Pamoate 25 e Pamoate MG MG 25 MG Propranolol Propranolol No 1{table BID Propranolo HCl 20 MG HCl 20 MG t_on_an l HCl 20 _empty_ MG stomach } Escitalopra Escitalopra No 1{table QD Escitalopr m Oxalate m Oxalate t} am Oxalate 20 MG 20 MG 20 MG Levothyroxi Levothyroxi No QD Levothyrox ne Sodium ne Sodium ine Sodium 25 MCG 25 MCG 25 MCG Cetirizine Cetirizine No 1{table QD Cetirizine HCl 10 MG HCl 10 MG t} HCl 10 MG Zantac 150 Zantac 150 No 1{table QD Zantac 150 MG MG t_at_be MG dtime} Duexis Duexis No 1{table Duexis 800-26.6 MG 800-26.6 MG t} 800-26.6 MG HydrOXYzine HydrOXYzine No HydrOXYzin Pamoate 25 Pamoate 25 e Pamoate MG MG 25 MG Propranolol Propranolol No 1{table BID Propranolo HCl 20 MG HCl 20 MG t_on_an l HCl 20 _empty_ MG stomach } Escitalopra Escitalopra No 1{table QD Escitalopr m Oxalate m Oxalate t} am Oxalate 20 MG 20 MG 20 MG Levothyroxi Levothyroxi No QD Levothyrox ne Sodium ne Sodium ine Sodium 25 MCG 25 MCG 25 MCG Cetirizine Cetirizine No 1{table QD Cetirizine HCl 10 MG HCl 10 MG t} HCl 10 MG Zantac 150 Zantac 150 No 1{table QD Zantac 150 MG MG t_at_be MG dtime} Duexis Duexis No 1{table Duexis 800-26.6 MG 800-26.6 MG t} 800-26.6 MG Levothyroxi Levothyroxi No QD Levothyrox ne Sodium ne Sodium ine Sodium 25 MCG 25 MCG 25 MCG Duexis Duexis No 1{table Duexis 800-26.6 MG 800-26.6 MG t} 800-26.6 MG Cetirizine Cetirizine No 1{table QD Cetirizine HCl 10 MG HCl 10 MG t} HCl 10 MG Zantac 150 Zantac 150 No 1{table QD Zantac 150 MG MG t_at_be MG dtime} Propranolol Propranolol No 1{table BID Propranolo HCl 20 MG HCl 20 MG t_on_an l HCl 20 _empty_ MG stomach } HydrOXYzine HydrOXYzine No HydrOXYzin Pamoate 25 Pamoate 25 e Pamoate MG MG 25 MG Escitalopra Escitalopra No 1{table QD Escitalopr m Oxalate m Oxalate t} am Oxalate 20 MG 20 MG 20 MG HydrOXYzine HydrOXYzine No HydrOXYzin Pamoate 25 Pamoate 25 e Pamoate MG MG 25 MG Levothyroxi Levothyroxi No QD Levothyrox ne Sodium ne Sodium ine Sodium 25 MCG 25 MCG 25 MCG Cetirizine Cetirizine No 1{table QD Cetirizine HCl 10 MG HCl 10 MG t} HCl 10 MG Zantac 150 Zantac 150 No 1{table QD Zantac 150 MG MG t_at_be MG dtime} Propranolol Propranolol No 1{table BID Propranolo HCl 20 MG HCl 20 MG t_on_an l HCl 20 _empty_ MG stomach } Duexis Duexis No 1{table Duexis 800-26.6 MG 800-26.6 MG t} 800-26.6 MG Escitalopra Escitalopra No 1{table QD Escitalopr m Oxalate m Oxalate t} am Oxalate 20 MG 20 MG 20 MG HydrOXYzine HydrOXYzine No HydrOXYzin Pamoate 25 Pamoate 25 e Pamoate MG MG 25 MG Levothyroxi Levothyroxi No QD Levothyrox ne Sodium ne Sodium ine Sodium 25 MCG 25 MCG 25 MCG Cetirizine Cetirizine No 1{table QD Cetirizine HCl 10 MG HCl 10 MG t} HCl 10 MG Zantac 150 Zantac 150 No 1{table QD Zantac 150 MG MG t_at_be MG dtime} Propranolol Propranolol No 1{table BID Propranolo HCl 20 MG HCl 20 MG t_on_an l HCl 20 _empty_ MG stomach } Duexis Duexis No 1{table Duexis 800-26.6 MG 800-26.6 MG t} 800-26.6 MG Escitalopra Escitalopra No 1{table QD Escitalopr m Oxalate m Oxalate t} am Oxalate 20 MG 20 MG 20 MG HydrOXYzine HydrOXYzine No HydrOXYzin Pamoate 25 Pamoate 25 e Pamoate MG MG 25 MG Escitalopra Escitalopra No 1{table QD Escitalopr m Oxalate m Oxalate t} am Oxalate 20 MG 20 MG 20 MG Levothyroxi Levothyroxi No QD Levothyrox ne Sodium ne Sodium ine Sodium 25 MCG 25 MCG 25 MCG Duexis Duexis No 1{table Duexis 800-26.6 MG 800-26.6 MG t} 800-26.6 MG Zantac 150 Zantac 150 No 1{table QD Zantac 150 MG MG t_at_be MG dtime} Propranolol Propranolol No 1{table BID Propranolo HCl 20 MG HCl 20 MG t_on_an l HCl 20 _empty_ MG stomach } Cetirizine Cetirizine No 1{table QD Cetirizine HCl 10 MG HCl 10 MG t} HCl 10 MG HydrOXYzine HydrOXYzine No HydrOXYzin Pamoate 25 Pamoate 25 e Pamoate MG MG 25 MG Escitalopra Escitalopra No 1{table QD Escitalopr m Oxalate m Oxalate t} am Oxalate 20 MG 20 MG 20 MG Levothyroxi Levothyroxi No QD Levothyrox ne Sodium ne Sodium ine Sodium 25 MCG 25 MCG 25 MCG Duexis Duexis No 1{table Duexis 800-26.6 MG 800-26.6 MG t} 800-26.6 MG Zantac 150 Zantac 150 No 1{table QD Zantac 150 MG MG t_at_be MG dtime} Propranolol Propranolol No 1{table BID Propranolo HCl 20 MG HCl 20 MG t_on_an l HCl 20 _empty_ MG stomach } Cetirizine Cetirizine No 1{table QD Cetirizine HCl 10 MG HCl 10 MG t} HCl 10 MG Duexis Duexis No 1{table Duexis 800-26.6 MG 800-26.6 MG t} 800-26.6 MG Escitalopra Escitalopra No 1{table QD Escitalopr m Oxalate m Oxalate t} am Oxalate 20 MG 20 MG 20 MG Levothyroxi Levothyroxi No QD Levothyrox ne Sodium ne Sodium ine Sodium 25 MCG 25 MCG 25 MCG HydrOXYzine HydrOXYzine No HydrOXYzin Pamoate 25 Pamoate 25 e Pamoate MG MG 25 MG Cetirizine Cetirizine No 1{table QD Cetirizine HCl 10 MG HCl 10 MG t} HCl 10 MG Zantac 150 Zantac 150 No 1{table QD Zantac 150 MG MG t_at_be MG dtime} Propranolol Propranolol No 1{table BID Propranolo HCl 20 MG HCl 20 MG t_on_an l HCl 20 _empty_ MG stomach } Zantac 150 Zantac 150 No 1{table QD Zantac 150 MG MG t_at_be MG dtime} Duexis Duexis No 1{table Duexis 800-26.6 MG 800-26.6 MG t} 800-26.6 MG Propranolol Propranolol No 1{table BID Propranolo HCl 20 MG HCl 20 MG t_on_an l HCl 20 _empty_ MG stomach } Escitalopra Escitalopra No 1{table QD Escitalopr m Oxalate m Oxalate t} am Oxalate 20 MG 20 MG 20 MG HydrOXYzine HydrOXYzine No HydrOXYzin Pamoate 25 Pamoate 25 e Pamoate MG MG 25 MG Cetirizine Cetirizine No 1{table QD Cetirizine HCl 10 MG HCl 10 MG t} HCl 10 MG Levothyroxi Levothyroxi No Levothyrox ne Sodium ne Sodium ine Sodium 25 MCG 25 MCG 25 MCG Escitalopra Escitalopra No 1{table QD Escitalopr m Oxalate m Oxalate t} am Oxalate 20 MG 20 MG 20 MG Cetirizine Cetirizine No 1{table QD Cetirizine HCl 10 MG HCl 10 MG t} HCl 10 MG Propranolol Propranolol No 1{table BID Propranolo HCl 20 MG HCl 20 MG t_on_an l HCl 20 _empty_ MG stomach } Duexis Duexis No 1{table Duexis 800-26.6 MG 800-26.6 MG t} 800-26.6 MG Levothyroxi Levothyroxi No Levothyrox ne Sodium ne Sodium ine Sodium 25 MCG 25 MCG 25 MCG HydrOXYzine HydrOXYzine No HydrOXYzin Pamoate 25 Pamoate 25 e Pamoate MG MG 25 MG Zantac 150 Zantac 150 No 1{table QD Zantac 150 MG MG t_at_be MG dtime} Escitalopra Escitalopra No 1{table QD Escitalopr m Oxalate m Oxalate t} am Oxalate 20 MG 20 MG 20 MG Cetirizine Cetirizine No 1{table QD Cetirizine HCl 10 MG HCl 10 MG t} HCl 10 MG Propranolol Propranolol No 1{table BID Propranolo HCl 20 MG HCl 20 MG t_on_an l HCl 20 _empty_ MG stomach } Duexis Duexis No 1{table Duexis 800-26.6 MG 800-26.6 MG t} 800-26.6 MG Zantac 150 Zantac 150 No 1{table QD Zantac 150 MG MG t_at_be MG dtime} Levothyroxi Levothyroxi No Levothyrox ne Sodium ne Sodium ine Sodium 25 MCG 25 MCG 25 MCG HydrOXYzine HydrOXYzine No HydrOXYzin Pamoate 25 Pamoate 25 e Pamoate MG MG 25 MG Cetirizine Cetirizine No 1{table QD Cetirizine HCl 10 MG HCl 10 MG t} HCl 10 MG Propranolol Propranolol No 1{table BID Propranolo HCl 20 MG HCl 20 MG t_on_an l HCl 20 _empty_ MG stomach } Duexis Duexis No 1{table Duexis 800-26.6 MG 800-26.6 MG t} 800-26.6 MG hydrOXYzine hydrOXYzine No hydrOXYzin Pamoate 25 Pamoate 25 e Pamoate MG MG 25 MG Zantac 150 Zantac 150 No 1{table QD Zantac 150 MG MG t_at_be MG dtime} Escitalopra Escitalopra No 1{table QD Escitalopr m Oxalate m Oxalate t} am Oxalate 20 MG 20 MG 20 MG Levothyroxi Levothyroxi No Levothyrox ne Sodium ne Sodium ine Sodium 25 MCG 25 MCG 25 MCG hydrOXYzine hydrOXYzine No hydrOXYzin Pamoate 25 Pamoate 25 e Pamoate MG MG 25 MG hydrOXYzine hydrOXYzine No 1{capsu TID hydrOXYzin Pamoate 25 Pamoate 25 le_as_n e Pamoate MG MG eeded} 25 MG Zantac 150 Zantac 150 No 1{table QD Zantac 150 MG MG t_at_be MG dtime} Levothyroxi Levothyroxi No QD Levothyrox ne Sodium ne Sodium ine Sodium 25 MCG 25 MCG 25 MCG Cetirizine Cetirizine No 1{table QD Cetirizine HCl 10 MG HCl 10 MG t} HCl 10 MG Escitalopra Escitalopra No 1{table QD Escitalopr m Oxalate m Oxalate t} am Oxalate 20 MG 20 MG 20 MG Propranolol Propranolol No 1{table BID Propranolo HCl 20 MG HCl 20 MG t_on_an l HCl 20 _empty_ MG stomach } Duexis Duexis No 1{table Duexis 800-26.6 MG 800-26.6 MG t} 800-26.6 MG Cetirizine Cetirizine No 1{table QD Cetirizine HCl 10 MG HCl 10 MG t} HCl 10 MG Azelastine- Azelastine- No 1{spray BID Azelastine Fluticasone Fluticasone _in_eac -Fluticaso 137-50 137-50 h_nostr ne 137-50 MCG/ACT MCG/ACT il} MCG/ACT Montelukast Montelukast No 1{table QD Montelukas Sodium 10 Sodium 10 t} t Sodium MG MG 10 MG predniSONE predniSONE No QD predniSONE 10 MG 10 MG 10 MG Azithromyci Azithromyci No QD Azithromyc n 250 MG n 250 MG in 250 MG Propranolol Propranolol No 1{table BID Propranolo HCl 20 MG HCl 20 MG t_on_an l HCl 20 _empty_ MG stomach } Duexis Duexis No 1{table Duexis 800-26.6 MG 800-26.6 MG t} 800-26.6 MG Levothyroxi Levothyroxi No QD Levothyrox ne Sodium ne Sodium ine Sodium 25 MCG 25 MCG 25 MCG hydrOXYzine hydrOXYzine No hydrOXYzin Pamoate 25 Pamoate 25 e Pamoate MG MG 25 MG Benzonatate Benzonatate No 1{capsu TID Benzonatat 200 MG 200 MG le} e 200 MG Zantac 150 Zantac 150 No 1{table QD Zantac 150 MG MG t_at_be MG dtime} Escitalopra Escitalopra No Escitalopr m Oxalate m Oxalate am Oxalate 20 MG 20 MG 20 MG Cetirizine Cetirizine No 1{table QD Cetirizine HCl 10 MG HCl 10 MG t} HCl 10 MG Azelastine- Azelastine- No 1{spray BID Azelastine Fluticasone Fluticasone _in_eac -Fluticaso 137-50 137-50 h_nostr ne 137-50 MCG/ACT MCG/ACT il} MCG/ACT Montelukast Montelukast No 1{table QD Montelukas Sodium 10 Sodium 10 t} t Sodium MG MG 10 MG predniSONE predniSONE No QD predniSONE 10 MG 10 MG 10 MG Azithromyci Azithromyci No QD Azithromyc n 250 MG n 250 MG in 250 MG Propranolol Propranolol No 1{table BID Propranolo HCl 20 MG HCl 20 MG t_on_an l HCl 20 _empty_ MG stomach } Duexis Duexis No 1{table Duexis 800-26.6 MG 800-26.6 MG t} 800-26.6 MG Levothyroxi Levothyroxi No QD Levothyrox ne Sodium ne Sodium ine Sodium 25 MCG 25 MCG 25 MCG hydrOXYzine hydrOXYzine No hydrOXYzin Pamoate 25 Pamoate 25 e Pamoate MG MG 25 MG Benzonatate Benzonatate No 1{capsu TID Benzonatat 200 MG 200 MG le} e 200 MG Zantac 150 Zantac 150 No 1{table QD Zantac 150 MG MG t_at_be MG dtime} Escitalopra Escitalopra No Escitalopr m Oxalate m Oxalate am Oxalate 20 MG 20 MG 20 MG hydrOXYzine hydrOXYzine No hydrOXYzin Pamoate 25 Pamoate 25 e Pamoate MG MG 25 MG Montelukast Montelukast No 1{table QD Montelukas Sodium 10 Sodium 10 t} t Sodium MG MG 10 MG predniSONE predniSONE No QD predniSONE 10 MG 10 MG 10 MG Azithromyci Azithromyci No QD Azithromyc n 250 MG n 250 MG in 250 MG Propranolol Propranolol No 1{table BID Propranolo HCl 20 MG HCl 20 MG t_on_an l HCl 20 _empty_ MG stomach } Cetirizine Cetirizine No 1{table QD Cetirizine HCl 10 MG HCl 10 MG t} HCl 10 MG Azelastine- Azelastine- No 1{spray BID Azelastine Fluticasone Fluticasone _in_eac -Fluticaso 137-50 137-50 h_nostr ne 137-50 MCG/ACT MCG/ACT il} MCG/ACT Levothyroxi Levothyroxi No QD Levothyrox ne Sodium ne Sodium ine Sodium 25 MCG 25 MCG 25 MCG Zantac 150 Zantac 150 No 1{table QD Zantac 150 MG MG t_at_be MG dtime} Benzonatate Benzonatate No 1{capsu TID Benzonatat 200 MG 200 MG le} e 200 MG Duexis Duexis No 1{table Duexis 800-26.6 MG 800-26.6 MG t} 800-26.6 MG Escitalopra Escitalopra No Escitalopr m Oxalate m Oxalate am Oxalate 20 MG 20 MG 20 MG Levothyroxi Levothyroxi No QD Levothyrox ne Sodium ne Sodium ine Sodium 25 MCG 25 MCG 25 MCG Azithromyci Azithromyci No QD Azithromyc n 250 MG n 250 MG in 250 MG Propranolol Propranolol No 1{table BID Propranolo HCl 20 MG HCl 20 MG t_on_an l HCl 20 _empty_ MG stomach } predniSONE predniSONE No QD predniSONE 10 MG 10 MG 10 MG hydrOXYzine hydrOXYzine No hydrOXYzin Pamoate 25 Pamoate 25 e Pamoate MG MG 25 MG Cetirizine Cetirizine No 1{table QD Cetirizine HCl 10 MG HCl 10 MG t} HCl 10 MG Azelastine- Azelastine- No 1{spray BID Azelastine Fluticasone Fluticasone _in_eac -Fluticaso 137-50 137-50 h_nostr ne 137-50 MCG/ACT MCG/ACT il} MCG/ACT Montelukast Montelukast No 1{table QD Montelukas Sodium 10 Sodium 10 t} t Sodium MG MG 10 MG Escitalopra Escitalopra No Escitalopr m Oxalate m Oxalate am Oxalate 20 MG 20 MG 20 MG hydrOXYzine hydrOXYzine No 1{capsu TID hydrOXYzin Pamoate 25 Pamoate 25 le_as_n e Pamoate MG MG eeded} 25 MG Duexis Duexis No 1{table Duexis 800-26.6 MG 800-26.6 MG t} 800-26.6 MG Benzonatate Benzonatate No 1{capsu TID Benzonatat 200 MG 200 MG le} e 200 MG Escitalopra Escitalopra No 1{table QD Escitalopr m Oxalate m Oxalate t} am Oxalate 20 MG 20 MG 20 MG Zantac 150 Zantac 150 No 1{table QD Zantac 150 MG MG t_at_be MG dtime} Zantac 150 Zantac 150 No 1{table QD Zantac 150 MG MG t_at_be MG dtime} Levothyroxi Levothyroxi No QD Levothyrox ne Sodium ne Sodium ine Sodium 25 MCG 25 MCG 25 MCG Duexis Duexis No 1{table Duexis 800-26.6 MG 800-26.6 MG t} 800-26.6 MG Propranolol Propranolol No 1{table BID Propranolo HCl 20 MG HCl 20 MG t_on_an l HCl 20 _empty_ MG stomach } HydrOXYzine HydrOXYzine No 1{capsu TID HydrOXYzin Pamoate 25 Pamoate 25 le_as_n e Pamoate MG MG eeded} 25 MG Cetirizine Cetirizine No 1{table QD Cetirizine HCl 10 MG HCl 10 MG t} HCl 10 MG HydrOXYzine HydrOXYzine No HydrOXYzin Pamoate 25 Pamoate 25 e Pamoate MG MG 25 MG Escitalopra Escitalopra No 1{table QD Escitalopr m Oxalate m Oxalate t} am Oxalate 20 MG 20 MG 20 MG Levothyroxi Levothyroxi No QD Levothyrox Common ne Sodium ne Sodium ine S[facility] 25 MCG 25 MCG 25 MCG [facility] HydrOXYzine HydrOXYzine No HydrOXYzin Common Pamoate 25 Pamoate 25 e Pamoate [facility] MG MG 25 MG [facility] Cetirizine Cetirizine No 1{table QD Cetirizine Common HCl 10 MG HCl 10 MG t} HCl 10 MG [facility] Zantac 150 Zantac 150 No 1{table QD Zantac 150 Common MG MG t_at_be MG Spirit dtime} [facility] Propranolol Propranolol No 1{table BID Propranolo Common HCl 20 MG HCl 20 MG t_on_an l HCl 20 [facility] _empty_ MG - [facility] stomach [facility] Duexis Duexis No 1{table Duexis Common 800-26.6 MG 800-26.6 MG t} 800-26.6 [facility] MG [facility] Escitalopra Escitalopra No 1{table QD Escitalopr Common m Oxalate m Oxalate t} am Oxalate [facility] 20 MG 20 MG 20 MG [facility] Immunizations Ordered Immunization Filled Immunization Date Status Commen ts Source Name Name Joseph Ruiz 2019-10-14 [facility] (Triamcinolone) 14:41:00 - [facility] Joseph Ruiz 2019-10-14 Com[facility] (Triam[facility]olone[facility] (Triamcinolone) 14:41:00 [facility] Joseph Ruiz 2019-10-14 Completed [facility] (Triamcinolone) (Triamcinolone) 14:41:00 [facility] Joseph Ruiz 2019-10-14 Completed [facility] (Triamcinolone) (Triamcinolone) 14:41:00 [facility] Joseph Ruiz 2019-10-14 Completed [facility] (Triamcinolone) (Triamcinolone) 14:41:00 - [facility] 2019[facility]14 Com[facility] (Triamcinolone) (Triamcinolone) 14::00 - [facility] 2019-10-14 Completed [facility] (Triamcinolone) (Triamcinolone) 14::00 - I [facility] 2019-10-14 Completed [facility] (Triamcinolone) (Triamcinolone) 14:41:00 - I [facility] 2019-10-14 Completed [facility] (Triamcinolone) (Triamcinolone) 14:: - I [facility] 2019-10-14 Completed [facility] (Triamcinolone) (Triamcinolone) 14::00 - I [facility] 2019-10-14 Completed [facility] (Tri[facility]one) (Triamcinolone) 14:41:00 - I [facility] 2019-10-14 Completed [facility] (Triam[facility]olone) (Triamcinolone) 14:41:00 - I [facility] 2019-10-14 Completed [facility] (Triamcinolone) (Triamcinolone) 14:41:00 - I [facility] 2019-10-14 Completed [facility] (Triamcinolone) (Triamcinolone) 14:41:00 - I [facility] 2019-10-14 Completed [facility] (Triamcinolone) (Triamcinolone) 14:41:00 - I [facility] 2019-10-14 Completed [facility] (Triamcinolone) (Triamcinolone) 14:41:00 - I [facility] 2019-10-14 Completed [facility] (Triamcinolone) (Triamcinolone) 14:41:00 - I [facility] 2019-10-14 Completed [facility] (Triam[facility]olone) (Triamcinolone) 14:41:00 - I [facility] 2019-10-14 Completed [facility] (Triamcinolone) (Triamcinolone) 14:41:00 - I [facility] 2019-10-14 Completed [facility] (Triamcinolone) (Triamcinolone) 14:41:00 - I [facility] 2019-10-14 Completed [facility] (Triamcinolone) (Triamcinolone) 14:41:00 - [facility] (Tdap) [facility] (Tdap) 2018-08-13 Completed [facility] 09:15:00 - [facility] (Tdap) [facility] (Tdap) 2018-08-13 Completed [facility] 09:15:00 [facility] (Tdap) [facility] (Tdap) 2018-08-13 Completed [facility] 09:15:00 [facility] (Tdap) [facility] (Tdap) 2018-08-13 Completed [facility] 09:15:00 - [facility] (Tdap) [facility] (Tdap) 2018-08-13 Completed [facility] 09:15:00 - [facility] (Tdap) [facility] (Tdap) 2018-08-13 Completed [facility] 09:15:00 [facility] (Tdap) [facility] (Tdap) 2018-08-13 Completed [facility] 09:15:00 [facility] (Tdap) [facility] (Tdap) 2018-08-13 Completed [facility] 09:15:00 [facility] (Tdap) [facility] (Tdap) 2018-08-13 Completed [facility] 09:15:00 [facility] (Tdap) [facility] (Tdap) 2018-08-13 Completed [facility] 09:15:00 [facility] (Tdap) [facility] (Tdap) 2018-08-13 Completed [facility] 09:15:00 [facility] (Tdap) [facility] (Tdap) 2018-08-13 Completed [facility] 09:15:00 - [facility] (Tdap) [facility] (Tdap) 2018-08-13 Completed [facility] 09:15:00 [facility] (Tdap) [facility] (Tdap) 2018-08-13 Completed [facility] 09:15:00 [facility] (Tdap) [facility] (Tdap) 2018-08-13 Completed [facility] 09:15:00 [facility] (Tdap) [facility] (Tdap) 2018-08-13 Completed [facility] 09:15:00 [facility] (Tdap) [facility] (Tdap) 2018-08-13 Completed [facility] 09:15:00 [facility] (Tdap) [facility] (Tdap) 2018-08-13 Completed [facility] 09:15:00 [facility] (Tdap) [facility] (Tdap) 2018-08-13 Completed [facility] 09:15:00 [facility] (Tdap) [facility] (Tdap) 2018-08-13 Completed [facility] 09:15:00 [facility] (Tdap) [facility] (Tdap) 2018-08-13 Completed [facility] 09:15:00 [facility] TDAP- [facility] TDAP- [facility] 2018-08-13 Completed [facility] 00:[facility]:00 [facility] 2017-08-12 Completed [facility] (Triamcinolone) (Triamcinolone) 14:39:00 - [facility] 2017-08-12 Completed [facility] (Triamcinolone) (Triamcinolone) 14:39:00 - [facility] 2017-08-12 Completed [facility] (Triamcinolone) (Triamcinolone) 14:39:00 - [facility] 2017-08-12 Completed [facility] (Triamcinolone) (Triamcinolone) 14:39:00 - I [facility] 2017-08-12 Completed [facility] (Triam[facility]olone) (Triamcinolone) 14:39:00 - I [facility] 2017-08-12 Completed [facility] (Triamcinolone) (Triamcinolone) 14:39:00 - I [facility] 2017-08-12 Completed [facility] (Triamcinolone) (Triamcinolone) 14:39:00 - I [facility] 2017-08-12 Completed [facility] (Triamcinolone) (Triamcinolone) 14:39:00 - I [facility] 2017-08-12 Completed [facility] (Triamcinolone) (Triamcinolone) 14:39:00 - [facility] 2017-08-12 Completed [facility] (Triamcinolone) (Triamcinolone) 14:39:00 - I [facility] 2017-08-12 Completed [facility] (Triamcinolone) (Triamcinolone) 14:39:00 - [facility] 2017-08-12 Completed [facility] (Triamcinolone) (Triamcinolone) 14:39:00 - I [facility] 2017-08-12 Completed [facility] (Triam[facility]olone) (Triamcinolone) 14:39:00 - I [facility] 2017-08-12 Completed [facility] (Triamcinolone) (Triamcinolone) 14:39:00 - I [facility] 2017-08-12 Completed [facility] (Triamcinolone) (Triamcinolone) 14:39:00 - I [facility] 2017-08-12 Completed [facility] (Triamcinolone) (Triamcinolone) 14:39:00 - [facility] 2017-08-12 Completed [facility] (Triamcinolone) (Triamcinolone) 14:39:00 - I [facility] 2017-08-12 Completed [facility] (Triamcinolone) (Triamcinolone) 14:39:00 - I [facility] 2017-08-12 Completed [facility] (Triamcinolone) (Triamcinolone) 14:39:00 - I [facility] 2017-08-12 Completed [facility] (Triamcinolone) (Triamcinolone) 14:39:00 - I [facility] 2017-08-12 Completed [facility] (Triamcinolone) (Triamcinolone) 14:39:00 - I [facility] Vital Signs Vital Name Observation Time Observation Value Comments Source Systolic blood 2022-08-21 06:00:00 122 mm[Hg] [facility] Diastolic blood 2022-08-21 06:00:00 69 mm[Hg] Unive [facility] Heart rate 2022-08-21 06:00:00 68 /min [facility] Respiratory rate 2022-08-21 06:00:00 18 /min [facility] Oxygen saturation in 2022-08-21 06:00:00 96 /min [facility] Arterial blood by [facility] Pulse oximetry [place] Body temperature 2022-08-21 05:09:00 36.5 Dorita [facility] Body height 2022-08-21 05:09:00 157.5 cm [facility] Body weight 2022-08-21 05:09:00 88.451 kg [facility] BMI 2022-08-21 05:09:00 35.67 kg/m2 [facility] Systolic blood 2022-05-15 17:08:00 128 mm[Hg] [facility]iver [facility] Diastolic blood 2022-05-15 17:08:00 84 mm[Hg] [facility]ive [facility] Heart rate 2022-05-15 17:08:00 92 /min [facility] Body temperature 2022-05-15 17:08:00 37.28 Dorita [facility] Respiratory rate 2022-05-15 17:08:00 18 /min [facility] Body height 2022-05-15 17:08:00 157.5 cm [facility] Body weight 2022-05-15 17:08:00 91.173 kg [facility] BMI 2022-05-15 17:08:00 36.76 kg/m2 [facility] height 2021-03-01 11:30:00 62 [in_i] [facility] weight 2021-03-01 11:30:00 190 [lb_av] [facility] temperature 2021-03-01 11:30:00 98.5 [degF] [facility] bmi 2021-03-01 11:30:00 34.75 kg/m2 [facility] blood pressure 2021-03-01 11:30:00 130 mm[Hg] [facility] - systolic [facility] blood pressure 2021-03-01 11:30:00 75 mm[Hg] [facility] - diastolic [facility] height 2021-02-21 11:50:00 62 [in_i] [facility] 2021-02-21 11:50:00 193 [lb_av] [facility] temperature 2021-02-21 11:50:00 98 [degF] [facility] bmi 2021-02-21 11:50:00 35.30 kg/m2 [facility] blood pressure 2021-02-21 11:50:00 131 mm[Hg] [facility] - systolic [facility] blood pressure 2021-02-21 11:50:00 70 mm[Hg] [facility] - diastolic [facility] height 2020-11-29 10:40:00 62 [in_i] [facility] weight 2020-11-29 10:40:00 192.0 [lb_av] [facility] temperature 2020-11-29 10:40:00 97.1 [degF] [facility] - [facility] bmi 2020-11-29 10:40:00 35.11 kg/m2 [facility] oximetry 2020-11-29 10:40:00 100 % [facility] respiratory rate 2020-11-29 10:40:00 16 /min [facility] blood pressure 2020-11-29 10:40:00 134 mm[Hg] [facility] - systolic [facility] blood pressure 2020-11-29 10:40:00 74 mm[Hg] Common [facility] - diastolic [facility] Systolic blood 2020-09-28 20:32:00 126 mm[Hg] [facility]iver [facility] Diastolic blood 2020-09-28 20:32:00 81 mm[Hg] [facility] Heart rate 2020-09-28 20:32:00 95 /min [facility] Body temperature 2020-09-28 20:32:00 37.06 [facility] Res[facility] rate 2020-09-28 20:32:00 12 /min [facility] Body height 2020-09-28 20:32:00 157.5 cm [facility] Body weight 2020-09-28 20:32:00 83.915 kg [facility] BMI 2020-09-28 20:32:00 33.84 kg/m2 [facility] Oxygen saturation in 2020-09-28 20:32:00 98 /min [facility] Arterial blood by [facility] Pulse oximetry Branch Systolic blood 2020-09-28 20:32:00 126 mm[Hg] [facility] Diastolic blood 2020-09-28 20:32:00 81 mm[Hg] [facility] Heart rate 2020-09-28 20:32:00 95 /min [facility] Body temperature 2020-09-28 20:32:00 37.06 Dorita [facility] Respiratory rate 2020-09-28 20:32:00 12 /min [facility] Body height 2020-09-28 20:32:00 157.5 cm [facility] Body weight 2020-09-28 20:32:00 83.915 kg [facility] BMI 2020-09-28 20:32:00 33.84 kg/m2 [facility] Oxygen saturation in 2020-09-28 20:32:00 98 /min University of Arterial blood by [facility] Pulse oximetry Branch Systolic blood 2020-06-03 23:15:00 121 mm[Hg] Univer [facility]ity [facility] Diastolic blood 2020-06-03 23:15:00 87 mm[Hg] [facility]ive [facility] Heart rate 2020-06-03 23:15:00 90 /min [facility] Body temperature 2020-06-03 23:15:00 37.67 Dorita [facility] Respiratory rate 2020-06-03 23:15:00 18 /min [facility] Body height 2020-06-03 23:15:00 157.5 cm [facility] Body weight 2020-06-03 23:15:00 93.441 kg [facility] BMI 2020-06-03 23:15:00 37.68 kg/m2 [facility] Oxygen saturation in 2020-06-03 23:15:00 99 /min [facility] Arterial blood by [facility] Pulse oximetry Branch Systolic blood 2020-06-03 23:15:00 121 mm[Hg] [facility]iver [facility] Diastolic blood 2020-06-03 23:15:00 87 mm[Hg] [facility]ive [facility] Heart rate 2020-06-03 23:15:00 90 /min [facility] Body temperature 2020-06-03 23:15:00 37.67 Dorita [facility] Respiratory rate 2020-06-03 23:15:00 18 /min Univ [facility] Body height 2020-06-03 23:15:00 157.5 cm [facility] Body weight 2020-06-03 23:15:00 93.441 kg [facility] BMI 2020-06-03 23:15:00 37.68 kg/m2 Universi ty [facility] Oxygen saturation in 2020-06-03 23:15:00 99 /min [facility] of Arterial blood by [facility] Pulse oximetry Branch height 2020-05-31 11:10:00 62 [in_i] [facility] weight 2020-05-31 11:10:00 221 [lb_av] [facility] temperature 2020-05-31 11:10:00 98 [degF] [facility] bmi 2020-05-31 11:10:00 40.42 kg/m2 [facility] blood pressure 2020-05-31 11:10:00 132 mm[Hg] [facility] - systolic [facility] blood pressure 2020-05-31 11:10:00 74 mm[Hg] [facility] - diastolic [facility] height 2020-05-23 14:30:00 62 [in_i] [facility] weight 2020-05-23 14:30:00 220 [lb_av] [facility] temperature 2020-05-23 14:30:00 98.7 [degF] [facility] bmi 2020-05-23 14:30:00 40.23 kg/m2 [facility] blood pressure 2020-05-23 14:30:00 128 mm[Hg] [facility] - systolic [facility] blood pressure 2020-05-23 14:30:00 71 mm[Hg] [facility] - diastolic [facility] Respiratory rate 2020-02-26 02:41:00 18 /min [facility] Body weight 2020-02-26 02:41:00 96.163 kg [facility] BMI 2020-02-26 02:41:00 39.41 kg/m2 Universi ty [facility] Oxygen saturation in 2020-02-26 02:41:00 99 /min [facility] Arterial blood by [facility] Pulse oximetry Branch Systolic blood 2020-02-26 02:41:00 129 mm[Hg] [facility] Diastolic blood 2020-02-26 02:41:00 85 mm[Hg] [facility] Heart rate 2020-02-26 02:41:00 77 /min [facility] Body temperature 2020-02-26 02:41:00 36.94 Dorita [facility] Respiratory rate 2020-02-26 02:41:00 18 /min [facility] Body weight 2020-02-26 02:41:00 96.163 kg [facility] BMI 2020-02-26 02:41:00 39.41 kg/m2 [facility] Oxygen saturation in 2020-02-26 02:41:00 99 /min [facility] Arterial blood by [facility] Pulse oximetry Branch Systolic blood 2020-02-26 02:41:00 129 mm[Hg] [facility] Diastolic blood 2020-02-26 02:41:00 85 mm[Hg] [facility] Heart rate 2020-02-26 02:41:00 77 /min [facility] Body temperature 2020-02-26 02:41:00 36.94 Dorita [facility] Procedures Procedure Date / Time Performed Performing Clinician Sour e EKG-12 LEAD 2022-08-21 06:13:33 Shelli Piedra [facility] XR CHEST 1 VW 2022-08-21 05:36:11 Shelli Piedra [facility] TROPONIN I 2022-08-21 05:24:00 Shelli Piedra [facility] BASIC METABOLIC PANEL 2022-08-21 05:24:00 Shelli Piedra [facility] (NA, K, CL, CO2, Medical Branch GLUCOSE, BUN, CREATININE, CA) CBC WITH DIFF 2022-08-21 05:24:00 Shelli Piedra [facility] POCT TEST 2022-08-21 05:23:00 Shelli Piedra [facility] CONSENT/REFUSAL FOR 2022-08-21 05:08:26 Doctor Unassigned, No Un [facility] DIAGNOSIS AND Name Medical Branch TREATMENT POCT MOLECULAR FLU 2022-05-15 17:15:00 Unknown, Attending [facility] ASSIGNMENT OF BENEFITS 2022-05-15 17:03:05 Doctor Unassigned, No [facility] Name Medical Branch POCT SARS-COV-2 2022-01-15 14:33:00 Belinda Colvin [facility] ANTIGEN (BINAX NOW) Medical Bran ch COVID-19 (ID NOW RAPID 2021-06-24 11:31:00 Rafita Edwards [facility] TESTING) Medical Branch CONSENT/REFUSAL FOR 2021-06-24 11:17:13 Doctor Unassigned, No [facility] [place] [facility] Name [facility] TREATMENT POCT GRP A STREP 2020-09-28 20:50:00 Shobha Lay [facility] (MOLECULAR) Medical Branch ADC,CLC OR LCC ONLY - 2020-06-03 23:23:00 [facility] INFLUENZA A & B DIRECT Medical B ranch ANTIGEN COVID-19 (ID NOW RAPID 2020-06-03 23:23:00 [facility] TESTING) Medical Branch CONSENT/REFUSAL FOR 2020-06-03 23:09:20 Doctor Unassigned, No [facility] [place] DI[facility] AND Name Medical [facility] TREATMENT XR FOOT 3+ VW RIGHT 2020-02-26 03:01:36 Yessi Judd [facility] Medical Branch CONSENT/REFUSAL FOR 2020-02-26 02:20:26 Doctor Unassigned, No [facility] [place] DIAGNOSIS AND Name Medical Branch TREATMENT NOTICE OF PRIVACY 2020-02-26 02:20:09 Doctor Unassigned, No [facility] Name Medical Branch Encounters Start End Encounter Admission Attending Care Care Encounter Source Date/Time Date/Time Type Type Clinicians Facility Department ID 2021-07-27 Outpatient EdwardsSTDANAE [facility] [id number] Common 12:40:00 Jodee [facility] 2021-07-19 Outpatient EdwardsJOHN olivo [facility] [id number] Common 14:19:02 Jodee [facility] 2021-07-19 Outpatient EdwardsJOSE olivoLC STLMLC [id number] Common 14:10:45 Jodee 53639 [facility] 2021-07-19 Outpatient Edwards, STLMLC STLMLC [id number] Common 13:46:36 Jodee 08535 [facility] 2021-07-19 Outpatient Edwards, STLMLC STLMLC [id number] Common 13:11:27 Jodee [id number] [facility] 2021-07-19 Outpatient Edwards, STLMLC STLMLC [id number] Common 12:08:04 Jodee 29895 [facility] 2021-07-19 Outpatient Edwards, STLMLC STLMLC [id number] Common 11:54:59 Jodee 43300 [facility] 2021-07-19 Outpatient Edwards, STLMLC STLMLC [id number] Common 11:52:43 Jodee 52155 [facility] 2021-07-19 Outpatient Edwards, STLMLC STLMLC [id number] Common 11:52:08 Jodee 44639 [facility] 2021-07-19 Outpatient Edwards, STLMLC STLMLC [id number] Common 11:42:44 Jodee 15957 [facility] 2021-07-19 Outpatient Edwards, STLMLC STLMLC [id number] Common 11:18:20 Jodee 14421 [facility] 2021-07-19 Outpatient Edwards, STLMLC STLMLC [id number] Common 11:16:21 Jodee [id number] [facility] 2021-07-19 Outpatient Edwards, STLMLC STLMLC [id number] Common 11:12:24 Jodee 96779 [facility] 2021-07-19 Outpatient Edwards, STLMLC STLMLC [id number] Common 11:09:12 Jodee 94773 [facility] 2021-04-22 Emergency [facility] [id number] Univers 22:22:47 ity [facility] 2021-04-22 Emergency [facility] [id number] Univers 10:51[facility]-21 Emergency [facility] [id number] Univers 15:52:48 [facility] 2022-08-20 2022-08-21 Emergency X TADEO [facility] ERT [id number] Univers 23:09:00 00:38:00 SHELLI [facility] 2022-08-20 2022-08-21 Emergency [facility] [id number] Univers 23:09:00 00:38:00 Shelli [facility] [id number] i ty [facility] [id number] [place] [facility] [id number] [facility] 084 [place] 2022-05-21 2022-05-21 [facility] [id number] Univers 00:00:00 00:00:00 Vanessa HEALTH [id number] it y of [place] [id number] Sky as ARIEL?BLEA [phone] [address] MEDICAL OFFICE [facility] 2022-05-15 2022-05-15 Urgent Vanessa Kim [facility] [id number] Univers 11:20:00 11:40:00 Care Unknown, Attending HEALTH [id number] ity of [place] [id number] [place] as ARIEL?BLEA [phone] [address] MEDICAL OFFICE [facility] 2022-05-15 2022-05-15 Outpatient R JULIO [facility] [id number] Univers 11:20:00 11:20:00 VANESSA [facility] 2022-05-15 2022-05-15 Orders Doctor PIERO [id number] Univers 00:00:00 00:00:00 Only Unassigned, CHALREEN [id number] ity of [place] [facility] 4.2.7.2.686 Sky as [phone] [facility] [address] [place] 2022-05-15 2022-05-15 Letter Julio [facility] [id number] Univers 00:00:00 00:00:00 (Out) [facility] [id number] [place] 4.2.7.2.686 [place] as ARIEL?BLEA [id number] [address] MEDICAL OFFICE [facility] 2022-01-15 2022-01-15 Reeler Operator Only, Ang Db Test [facility] 1.2.8 40.114 [id number] Univers 09:00:00 09:15:00 Visit Belinda Colvin [facility] [id number] ity of [facility] 4.2.7.2.686 Sky as ARIEL?BLEA [phone] [address] OFFICE [facility] 2022-01-15 2022-01-15 Outpatient R MARII [facility] [id number] Univers 09:00:00 09:00:00 BELINDA yoliy o f [facility] 2022-01-12 2022-01-12 Reeler Operator Only, Ang Db Test [facility] 1.2.8 40.114 [id number] Univers 10:00:00 10:15:00 Visit Drea Muñoz [facility] [id number] ity of [place] 4.2.7.2.686 Sky as ARIEL?BLEA [phone] [address] OFFICE [facility] 2022-01-12 2022-01-12 Outpatient R IVAN [facility] [id number] Univers 10:00:00 10:13:28 DREA [facility] 2021-06-24 2021-06-24 Outpatient R FABIOLA [facility] [id number] Univers 05:18:04 23:59:00 RAFITA [facility] 2021-06-24 2021-06-24 [facility] Rafita Edwards [facility] 1.2.840.11 [id number] Univers 05:18:04 23:59:00 Encounter Only, Adc Ed Test [place] 350.1.13. 10 ity of [place] 4[place]2.7.2.686 [place] [id number] [address] 2021-06-24 2021-06-24 Orders Doctor PIERO 1.2.840.114 [id number] Univers 00:00:00 00:00:00 Only Unassigned, CHARLEEN 350.1.13.10 ity of [place] [facility] 4.2.7.2.686 Sky as [id number] [facility] [address] [place] 2021-06-15 2021-06-15 Telephone Nia Acuña 1.2.840.114 [id number] Univers 00:00:00 00:00:00 CHARLEEN 350.1.13.10 it y of HOSPITAL 4.2.7.2.686 [place] as [id number] [facility] [address] [place] 2021-06-14 2021-06-14 Outpatient R IVAN [facility] [id number] Univers 18:45:00 20:03:40 DREA itcatina [facility] 2021-06-14 2021-06-14 Laboratory Only, Ang Db Test [facility] 1.2.8 40.114 [id number] Univers 18:45:00 19:00:00 Only [address] [facility] [id number] ity of [place] 4.2.7.2.686 Sky as ARIEL?BLEA [phone] [address] MEDICAL OFFICE [facility] 2021-06-05 2021-06-05 Outpatient R JULIO [facility] [id number] Univers 15:15:00 15:30:14 VANESSA catina [facility] 2021-06-05 2021-06-05 Reeler Operator Only, Ang Db Test [facility] 1.2.8 40.114 [id number] Univers 15:09:57 15:24:57 Visit Julio [facility] [id number] ity of [facility] 4.2.7.2.686 [place] as ARIEL?BLEA [phone] [address] MEDICAL OFFICE [facility] 2021-05-24 2021-05-24 Reeler Operator Only, Ang Db Test [facility] 1.2.8 40.114 [id number] Univers 13:14:08 13:29:08 Visit Belinda Colvin [place] 350.1.13.10 ity of [place] 4.2.7.2.686 Sky as ARIEL?BLEA [phone] [address] MEDICAL OFFICE BUILDING 2021-05-24 2021-05-24 Outpatient R MARII, [facility] [id number] Univers 13:30:00 13:23:32 [facility] 2021-03-01 2021-03-01 OFFICE STLMLC STLMLC [id number] Co mmon 00:00:00 00:00:00 VISIT Spirit ESTAB PT - CHI LEVEL 4 [facility] 2021-02-24 2021-02-24 (TEL) STLMLC STLMLC [id number] Co mmon 00:00:00 00:00:00 [facility] 2021-02-21 2021-02-21 OFFICE STLMLC STLMLC [id number] Co mmon 00:00:00 00:00:00 VISIT EST Spir it PT LEVEL 3 [facility] 2021-02-21 2021-02-21 (TEL) STLMLC STLMLC [id number] Co mmon 00:00:00 00:00:00 [facility] 2021-02-19 2021-02-19 Laboratory Only, Ang Db Test [facility] 1.2.8 40.114 [id number] Univers 17:51:56 18:01:56 Only Guillermo [facility] [id number] reji [facility] [id number] Sky as Ariel?Blea [phone] [address] Medical Office [facility] 2021-02-19 2021-02-19 Outpatient R GUILLERMO [facility] [id number] Univers 17:55:00 17:55:00 PIERO mendoza [facility] 2020-11-29 2020-11-29 OFFICE STLMLC STLC [id number] Co mmon 00:00:00 00:00:00 VISIT EST Spir it PT LEVEL 3 [facility] 2020-11-25 2020-11-25 (TEL) STLMLC STLMLC [id number] Co mmon 00:00:00 00:00:00 [facility] 2020-10-24 2020-10-24 (TEL) STLMLC STLMLC [id number] Co mmon 00:00:00 00:00:00 [facility] 2020-10-04 2020-10-04 Refill Patrick, [facility] 1.2.840.114 [id number] Univers 00:00:00 00:00:00 [facility] [id number] i ty of [place] [id number] Sky as Professio [phone] Dc dical nal [address] 2020-10-04 2020-10-04 Refill Patrick, [facility] 1.2.840.114 [id number] 00:00:00 00:00:00 [facility] [id number] [place] [id number] Professio [phone] nal [facility] Office [address] 2020-09-28 2020-09-28 Urgent Provider, [facility] 1.2.840.114 [id number] Univers 15:32:06 15:52:06 [facility] 350.1.13. 10 ity of [place] [id number] Sky as Professio [phone] Dc dical nal [address] 2020-09-28 2020-09-28 Urgent Provider, [facility] [id number] 15:32:06 15:52:06 Care [facility] [id number] Care [place] [id number] Professio [phone] nal [facility] Office [address] 2020-09-28 2020-09-28 Outpatient R DARIAN [facility] [id number] Univers 15:40:00 15:40:00 JANETH ity [facility] 2020-09-27 2020-09-27 (TEL) STLMLC STLMLC [id number] Co mmon 00:00:00 00:00:00 [facility] 2020-09-21 2020-09-21 Laboratory Lab, Adc Fam Pob I [facility] 1.2. 840.114 [id number] Univers 11:15:55 11:35:55 Only Patrick, Shereen [facility] [id number] ity of [place] [id number] Sky as Professio [phone] Me dical nal [address] 2020-09-21 2020-09-21 Laboratory Lab, [facility] 1.2.840.114 [id number] 11:15:55 11:35:55 Only Fam Pob I Health [id number] [place] [id number] Professio [phone] nal [address] 2020-09-21 2020-09-21 Outpatient R PATRICK, [facility] [id number] Univers 11:20:00 11:20:00 SHEREEN [facility] 2020-09-13 2020-09-13 Outpatient R DEBBIE [facility] [id number] Univers 09:00:00 09:00:00 EMI [facility] 2020-09-13 2020-09-13 [facility] 1.2.840.114 [id number] Univers 00:00:00 00:00:00 Outreach Thiago PRIMARY [id number] i ty of [facility] [id number] [place] [phone] Dc dical [address] 2020-09-13 2020-09-13 [facility] 1.2.840.114 [id number] 00:00:00 00:00:00 Outreach Thiago PRIMARY [id number] Edward CARE 4.2.7.2.686 PAVILLION [phone] 388 2020-09-04 2020-09-04 (TEL) STLC STLC [id number] Co mmon 00:00:00 00:00:00 [facility] 2020-08-29 2020-08-29 (TEL) STLMLC STLMLC [id number] Co mmon 00:00:00 00:00:00 [facility] 2020-08-03 2020-08-03 (TEL) STLMLC STLMLC [id number] Co mmon 00:00:00 00:00:00 [facility] 2020-08-03 2020-08-03 (TEL) STLMLC STLMLC [id number] Co mmon 00:00:00 00:00:00 [facility] 2020-08-02 2020-08-02 Outpatient R DEBBIE, [facility] [id number] Univers 08:30:00 08:30:00 EMI [facility]endo[facility] 2020-06-30 2020-06-30 (TEL) STLMLC STLMLC [id number] Co mmon 00:00:00 00:00:00 [facility] 2020-06-30 2020-06-30 (TEL) STLMLC STLMLC [id number] Co mmon 00:00:00 00:00:00 [facility] 2020-06-15 2020-06-15 (TEL) STLMLC STLMLC [id number] Co mmon 00:00:00 00:00:00 [facility] 2020-06-09 2020-06-09 (TEL) STLMLC STLMLC [id number] Co mmon 00:00:00 00:00:00 [facility] 2020-06-08 2020-06-08 (TEL) STLMLC STLMLC [id number] Co mmon 00:00:00 00:00:00 [facility] 2020-06-03 2020-06-03 Emergency [facility] [id number] [facility] 17:19:00 17:57:00 José Wallace 350.1.13.10 i ty of [place] 4.2.7.2.686 [facility] [phone] [address] 2020-06-03 2020-06-03 [facility] [id number] [id number] 17:19:00 17:57:00 José Wallace 350.1.13.[address] [place] [address] [phone] [facility] 2020-06-03 2020-06-03 Orders Doctor PIERO 1.2.840.114 [id number] Univers 00:00:00 00:00:00 Only Unassigned, CHARLEEN 350.1.13.10 ity of [facility] 4.2.7.2.686 Sky as [phone] [address] 2020-06-03 2020-06-03 Orders Doctor PIERO 1.2.840.114 [id number] 00:00:00 00:00:00 Only UnassignedCHARLEEN 350.1.13.10 [facility] 4.2.7.2.686 [phone] [facility] 2020-05-31 2020-05-31 OFFICE STLMLC STLMLC [id number] Co mmon 00:00:00 00:00:00 VISIT EST Spir it PT LEVEL 3 - CHI [facility] 2020-05-30 2020-05-30 Laboratory Lab, [facility] Fam Pob I [facility] 1.2. 840.114 [id number] [facility] 15:47:38 16:07:38 Only Jose Tong 350.1.13.10 ity of [place] 4.2.7.2.686 Sky as Professio [phone] Dc dical [address] Office [facility] 2020-05-30 2020-05-30 Laboratory Lab, [facility] 1.2.840.114 [id number] 15:47:38 16:07:38 Only Fam Pob I Health 350.1.13.10 [place] 4.2.7.2.686 Professio [phone] [address] 2020-05-30 2020-05-30 Outpatient R ALYCIA [facility] [id number] Univers 16:00:00 16:00:00 JOSE ity of [facility] 2020-05-30 2020-05-30 (TEL) STLMLC STLMLC [id number] Co mmon 00:00:00 00:00:00 Spirit - CHI [facility] 2020-05-23 2020-05-23 OFFICE STLMLC STLMLC [id number] Co mmon 00:00:00 00:00:00 VISIT Spirit ESTAB PT - CHI LEVEL 4 [facility] 2020-03-09 2020-03-09 (TEL) STLMLC STLMLC [id number] Co mmon 00:00:00 00:00:00 Spirit - CHI [facility] 2020-03-08 2020-03-08 Outpatient [facility] [id number] Common 14:40:00 14:40:00 t CO Everywhere Spir it Drive [facility] 2020-02-25 2020-02-25 Emergency [facility] [id number] Univers 21:47:00 22:45:00 [place] 350.1.13.10 i ty of [place] 4.2.7.2.686 [facility] [phone] [place] [address] [address] 2020-02-25 2020-02-25 Emergency [facility] [id number] 21:47:00 22:45:00 [place]essi Krish [place] 350.1.13.10 [place] 4.2.7.2.686 [place] [phone] [facility] 2019-12-30 2020-01-01 Laboratory Only, Dic [facility] 1.2.840.114 [id number] 15:11:12 16:50:00 Only Test HEALTH 350.1.13.10 FAMILY 4.2.7.2.686 MEDICINE [phone] MOISES [address] [place] [address] 2019-12-30 2020-01-01 Laboratory Only, Dic Test [facility] 1.2.840. 114 [id number] Univers 15:11:12 16:50:00 Only Jono Clark HEALTH 350.1.13.10 ity of FAMILY 4.2.7.2.686 [facility] [phone] Med ical MOISES [address] [place] [address] 2019-12-30 2019-12-30 Outpatient Krish [facility] [id number] Univers 15:00:00 15:00:00 JONO mendoza [facility] 2019-11-26 2019-11-26 [facility] [id number] Common 11:15:00 11:15:00 t CO Everywhere Spir it Drive [facility] 2019-10-14 2019-10-14 Out[facility] [id number] Common 14:30:00 14:30:00 t CO Everywhere Spir it Drive [facility] 2019-10-08 2019-10-08 Out[facility] [id number] Common 08:18:00 08:18:[address] [facility] 2019-10-06 2019-10-06 Out[facility] [id number] Common 09:40:00 09:40:00 t [facility] [address] Sp[address] Road [facility] 2019-10-05 2019-10-05 [facility] [id number] Common 14:37:00 14:37:[address] [facility] 2019-09-07 2019-09-07 [facility] [id number] Common 15:10:00 15:10:[address] [facility] 2019-09-07 2019-09-07 [facility] [id number] Common 09:56:00 09:56:[address] [facility] 2019-09-04 2019-09-04 [facility] [id number] Common 09:15:00 09:15:[address] [facility] 2019-08-28 2019-08-28 Out[facility] [id number] Common 10:30:00 10:30:[address] [facility] 2019-07-31 2019-07-31 Out[facility] [id number] Common 09:40:00 09:40:00 t [facility] [address] Sp[address] [facility] 2019-06-16 2019-06-16 [facility] [id number] Common 08:00:00 08:00:[address] [facility] 2019-05-05 2019-05-05 [facility] [id number] Common 11:45:00 11:45:[address] [facility] 2019-04-29 2019-04-29 [facility] [id number] Common 08:03:00 08:03:[address] [facility] 2019-03-31 2019-03-31 [facility] [id number] Common 10:49:00 10:49:[address] [facility] 2019-03-25 2019-03-25 Out[facility] [id number] Common 10:56:00 10:56:[address] [facility] 2019-03-24 2019-03-24 Out[facility] [id number] Common 16:12:00 16:12:[address] [facility] 2019-03-23 2019-03-23 Out[facility] [id number] Common 09:00:00 09:00:[address] [facility] 2019-02-10 2019-02-10 Out[facility] [id number] Common 14:18:00 14:18:[address] [facility] 2018-10-14 2018-10-14 Out[facility] [id number] Common 08:30:00 08:30:[address] [facility] 2018-10-02 2018-10-02 Out[facility] [id number] Common 10:38:00 10:38:[address] [facility] 2018-09-24 2018-09-24 [facility] [id number] Common 08:15:00 08:15:[address] [facility] 2018-08-13 2018-08-13 Out[facility] [id number] Common 08:45:00 08:45:[address] [facility] 2018-07-01 2018-07-01 Out[facility] [id number] Common 08:15:00 08:15:[address] [facility] 2018-03-26 2018-03-26 [facility] [id number] Common 08:30:00 08:30:[address] [facility] 2018-02-06 2018-02-06 [facility] [id number] Common 15:30:00 15:30:[address] [facility] 2018-01-24 2018-01-24 [facility] [id number] Common 09:21:00 09:21:[address] [facility] 2018-01-21 2018-01-21 [facility] [id number] Common 14:07:00 14:07:[address] [facility] 2018-01-15 2018-01-15 [facility] [id number] Common 13:30:00 13:30:[address] [facility] 2018-01-09 2018-01-09 [facility] [id number] Common 15:45:00 15:45:[address] [facility] 2018-01-08 2018-01-08 [facility] [id number] Common 08:27:00 08:27:00 [facility] 2018-01-01 2018-01-01 [facility] [id number] Common 15:35:00 15:35:00 t [facility] Clinic [facility] 2018-01-01 2018-01-01 [facility] [id number] Common 15:34:00 15:34:00 t [facility] Clinic [facility] 2017-12-26 2017-12-26 [facility] [id number] Common 15:15:00 15:15:00 t [facility] 2017-12-10 2017-12-10 [facility] [id number] Common 15:45:00 15:45:[address] [facility] 2017-11-19 2017-11-19 Out[facility] [id number] Common 10:09:00 10:09:[address] [facility] 2017-11-12 2017-11-12 Out[facility] [id number] Common 13:00:00 13:00:[address] [facility] 2017-10-25 2017-10-25 [facility] 13 [id number] Common 15:04:00 15:04:[address] [facility] 2017-10-15 2017-10-15 [facility] 13 [id number] Common 13:54:00 13:54:[address] [facility] 2017-10-14 2017-10-14 [facility] 13 [id number] Common 11:11:00 11:11:[address] [facility] 2017-10-01 2017-10-01 Out[facility] [id number] Common 08:52:00 08:52:[address] [facility] 2017-09-18 2017-09-18 Out[facility] 13 [id number] Common 13:00:00 13:00:[address] [facility] Results Test Description Test Time Test Comments Results Result Comments Source TROPONIN I 2022-08-21 06:05:17 Test Item Value Reference Range Interpretation Comme nts TROPONIN I (test code = 7442762222) 0.003 ng/mL <=0.034 ASHVIN (test code = ASHVIN) Reference (Normal) Range (defined by the 99th percentile reference limit): <= 0.034 ng/mL Note: Cardiac troponin begins to rise 3-4 hours after the onset of ischemia. Repeat in 4-6 hours if the sample was drawn within 3-4 hours of the onset of the symptom and found normal. Diagnosis of myocardial injury is made with acute changes in cTn concentrations with at least one serial sample above the 99th percentile upper reference limit (URL), taken together with the patient's clinical presentation. Biotin has been reported to cause a negative bias, interpret results relative to patient's use of biotin. Lab Interpretation (test code = Normal 08858-8) [facility] METABOLIC PANEL (NA, K, CL, CO2, GLUCOSE, BUN, CREATININE, CA)2022-08-21 05:53:36 Test Item Value Reference Range Interpretation Comments NA (test code = 136 mmol/L 135-145 5841321048) K (test code = 4.1 mmol/L 3.5-5.0 0716647017) CL (test code = 106 mmol/L 98-108 3042514086) CO2 TOTAL (test code = 22 mmol/L 23-31 L 1383106616) AGAP (test code = 8 2-16 1334636844) BUN (test code = 16 mg/dL 7-23 7337495500) GLUCOSE (test code = 86 mg/dL 70-110 7896816824) CREATININE (test code = 0.63 mg/dL 0.50-1.04 2398598544) CALCIUM (test code = 8.9 mg/dL 8.6-10.6 0390201188) eGFR (test code = 107.5 mL/min/1.73m2 8476211167) ASHVIN (test code = ASHVIN) Association of Glomerular Filtration Rate (GFR) and Staging of Kidney Disease* + --+ --+ ------+| GFR (mL/min/1.73 m2) ?| With Kidney Damage ?| ?Without Kidney Damage+ --------+ --------+ +| ?>90 ?| ?Stage one ?| ? Normal ?+ ---+ ---+ -------+| ?60-89 ?| ?Stage two ?| ? Decreased GFR ? + --+ --+ ------+| ?30-59 ?| ?Stage three ?| ? Stage three ? + --+ --+ ------+| ?15-29 ?| ?Stage four ? | ? Stage four ?+ ---+ ---+ -------+| ?<15 (or dialysis) ? ?| ?Stage five ? | ? Stage five ?+ ---+ ---+ -------+ *Each stage assumes the associated GFR level has been in effect for at least three months. ?Stages 1 to 5, with or without kidney disease, indicate chronic kidney disease. Notes: Determination of stages one and two (with eGFR >59mL/min/1.73 m2) requires estimation of kidney damage for at least three months as defined by structural or functional abnormalities of the kidney, manifested by either:Pathological abnormalities or Markers of kidney damage (including abnormalities in the composition of the blood or urine or abnormalities in imaging tests). Lab Interpretation Abnormal (test code = 72109-4) [facility] WITH [id number] 05:37:37 Test Item Value Reference Range Interpretation Comments WBC (test code = 8.95 See_Comment [Automated 6382-2) message] The sy stem which generated this result transmitted reference range : 4.30 - 11.10 10*3/?L. The reference range was not used to interpret this result as normal/abnormal . RBC (test code = 4.03 See_Comment [Automated 250-8) message] The sy stem which generated this result transmitted reference range : 3.93 - 5.25 10*6/?L. The reference range was not used to interpret this result as normal/abnormal . HGB (test code = 12.7 g/dL 11.6-15.0 718-7) HCT (test code = 38.3 % 35.7-45.2 4544-3) MCV (test code = 95.0 fL 80.6-95.5 787-2) MCH (test code = 31.5 pg 25.9-32.8 785-6) MCHC (test code = 33.2 g/dL 31.6-35.1 786-4) RDW-SD (test code = 43.0 fL 39.0-49.9 94530-0) RDW-CV (test code = 12.2 % 12.0-15.5 788-0) PLT (test code = 377 See_Comment H [Automated 897-3) message] The sy stem which generated this result transmitted reference range : 166 - 358 10*3/ ?L. The reference r britt was not used to interpret this result as normal/abnormal . MPV (test code = 10.8 fL 9.5-12.9 75716-8) NRBC/100 WBC (test 0.0 See_Comment [Automat ed code = 9632583393) message] The system which generated this result transmitted reference range : 0.0 - 10.0 /100 WBCs. The refer ence range was not u sed to interpret th is result as normal/abnormal . NRBC x10^3 (test code See_Comment [Auto mated = 8570779570) message] The s ystem which generated this result transmitted reference range : 10*3/?L. The reference range was not used to interpret this result as normal/abnormal . GRAN MAT (NEUT) % 55.6 % (test code = 770-8) IMM GRAN % (test code 0.30 % = 7509362788) LYMPH % (test code = 23.6 % 736-9) MONO % (test code = 9.3 % 5905-5) EOS % (test code = 10.1 % 713-8) BASO % (test code = 1.1 % 706-2) GRAN MAT x10^3(ANC) 4.98 10*3/uL 1.88-7.09 (test code = 6626869472) IMM GRAN x10^3 (test 0.03 10*3/uL 0.00-0.06 code = 6407894696) LYMPH x10^3 (test code 2.11 10*3/uL 1.32-3.29 = 731-0) MONO x10^3 (test code 0.83 10*3/uL 0.33-0.92 = 742-7) EOS x10^3 (test code = 0.90 10*3/uL 0.03-0.39 H 711-2) BASO x10^3 (test code 0.10 10*3/uL 0.01-0.07 H = 704-7) Lab Interpretation Abnormal (test code = 35744-2) [facility] [id number] 05:23:00 Test Item Value Reference Range Interpretation Comments POCT PREG (test code = 1605) negative On board controls acceptable with present C Line (test code = 3574) POCT PREG LOT # (test code = 3575) [id number] POCT PREG TEST DATE (test 2023-11-22 code = 3576) Lab Interpretation (test code = Normal 80218-3) [facility] MOLECULAR [id number] 17:19:48 Test Item Value Reference Range Interpretation Comments POCT Molecular FluA (test code = Positive Negative A 43841-5) Lab Interpretation (test code = Abnormal 39971-5) [facility] SARS-COV-2 ANTIGEN (BINAX NOW)2022-01-15 14:33:00 Test Item Value Reference Range Interpretation Comments POCT SARS-COV-2 ANTIGEN Not Detected Not Detected (test code = 5076) On board controls Yes acceptable with C Line (test code = 3574) ASHVIN (test code = ASHVIN) accurate development and interpretation of all internal controls Lab Interpretation Normal (test code = 66285-6) [facility] GRP A STREP (MOLECULAR)2020-09-28 21:00:00 Test Item Value Reference Range Interpretation Comments POCT GP A STREP (test neg Negative - code = 60671-4) Negative ASHVIN (test code = ASHVIN) accurate development and interpretation of all internal controls Lab Interpretation Normal (test code = 05262-9) [facility] - INFLUENZA A & B DIRECT [id number] 23:47:00 Test Item Value Reference Range Interpretation Comments Influenza A (test code = 29780-8) Negative Negative Influenza B (test code = 61256-4) Negative Negative Lab Interpretation (test code = Normal 21624-0) [facility] (ID NOW RAPID TESTING)2020-06-03 23:47:00 Test Item Value Reference Range Interpretation Comments SARS-CoV-2 Rapid ID NOW Not Detected Not Detected (test code = 75484-9) ASHVIN (test code = ASHVIN) ID NOW COVID-19 Assay is an isothermal nucleic acid amplification test intended for the qualitative detection of nucleic acid from SARS-CoV-2 viral RNA in nasopharyngeal ([employer]) specimens. It is used under Emergency Use Authorization (EUA) by FDA. The limit of detection (LOD) of the assay is 125 Genome Equivalents/mL. A positive result is indicative of the presence of SARS-CoV-2 RNA. ?Clinical correlation with patient history and other diagnostic information is necessary to determine patient infection status. A negative (Not Detected) result does not preclude SARS-CoV-2 infection. In patients with clinical symptoms and other tests that are consistent with SARS-CoV-2 infection, negative results should be treated as presumptive negative and a new specimen should be tested with alternative PCR molecular test. Invalid: Please collect a new specimen for repeat patient testing if clinically indicated. Lab Interpretation Normal (test code = 83162-2) [facility] VW [id number] 03:11:13 No acute bony abnormality is present. EXAM: XR FOOT 3+ VW RIGHT HISTORY: right foot pain sp slip and fall, previous fx in past COMPARISON: None FINDINGS: Imaging of the foot demonstrates maintenance of alignment. A bone island isseen within the posterior superior calcaneal body. Joint spaces arepreserved. [facility], Radiant Results Inft User - 02/25/2020 10:12 PM CDTEXAM:XR FOOT 3+ VW RIGHTHISTORY:right foot pain sp slip and fall, previous fx in past COMPARISON:NoneFINDINGS: Imaging of the foot demonstrates maintenance of alignment. A bone island isseen within the posterior superior calcaneal body. Joint spaces arepreserved.IMPRESSIONNo acute bony abnormality is present.[facility] Campus[facility]ARS-COV 2 AntigenSARS-COV 2 Antigen"
[2022-09-13] MEDS ORDERED: NA CHLORIDE 0.9% 1,000 ML ONE (17:32)
--- NOTE | 2022-09-13 17:36 | RAD REPORT ---
EXAM DESCRIPTION: RAD - Chest Single View - 09/13/2022 5:29 pm CLINICAL HISTORY: PALPITATIONS COMPARISON: Chest Pa And Lat (2 Views) dated 06/08/2020; Chest Single View dated 04/26/2018 FINDINGS: Lines: None. Lungs: No evidence of edema or pneumonia. Pleural: No significant pleural effusions or pneumothorax. Cardiac: The heart size is within normal limits. Mediastinum: Within normal limits. Bones: No acute fractures. Other: None IMPRESSION: No acute cardiopulmonary disease.
[2022-09-13 18:10] LABS: ALT/SGPT 33 U/L (13-56); AST/SGOT 14 U/L (15-37); Albumin 3.8 g/dL (3.4-5.0); Alkaline Phosphatase 43 U/L (45-117); BUN Blood Urea Nitrogen 17 mg/dL (7-18); Bicarbonate 25 mEq/L (21-32); Bilirubin Total 0.2 mg/dL (0.2-1.0); Glomerular Filtration Rate 122 ml/min (=/>90); Glucose Level 88 mg/dL (74-106); NT PRO-BNP 48 pg/mL (<125); Potassium 3.6 mEq/L (3.5-5.1); Protein, Total 6.9 g/dL (6.4-8.2); Sodium Level 139 mEq/L (136-145); Troponin High Sensitivity 3.3 pg/mL (<58.9)
[2022-09-13 18:11] LABS: Bilirubin Direct < 0.1 mg/dL (0-0.2)
[2022-09-13 18:17] LABS: Specific Gravity > 1.030 (1.005-1.030); Urine Bacteria None Seen /HPF (<20); Urine Bilirubin NEGATIVE (Negative); Urine Blood Trace (Negative); Urine Clarity Clear (Clear); Urine Color Yellow (Yellow); Urine Glucose NEGATIVE (Negative); Urine Mucus 1+ /HPF (None Seen); Urine Protein NEGATIVE (Negative); Urine RBC <5 /HPF (None Seen); Urine Urobilinogen Normal (Normal); Urine pH 5.5 (5.0-7.0)
--- NOTE | 2022-09-13 18:22 | ER ---
Nurse's Notes [facility] Name: Gayla Kelly Age: 37 yrs Sex: Female : 1985 Arrival Date: 09/13/2022 Time: 16:49 Bed 5 Private MD: Diagnosis: Palpitations Presentation: 09/13 16:56 Chief complaint: Patient states: "For the past week and a half I've been having aa5 palpitations and every time I get them it makes me feel short of breath". Pt reports she was instructed by PCP to come to ER, pt also reports she began a Keto diet approximately 2 weeks ago. Coronavirus screen: At this time, the client does not indicate any symptoms associated with coronavirus-19. Ebola Screen: Patient denies travel to an Ebola-affected area in the 21 days before illness onset. Initial Sepsis Screen: Does the patient meet any 2 criteria? No. Patient's initial sepsis screen is negative. Does the patient have a suspected source of infection? No. Patient's initial sepsis screen is negative. Risk Assessment: Do you want to hurt yourself or someone else? Patient reports no desire to harm self or others. Onset of symptoms was August 2022. 16:56 Acuity: AIDEN 3 aa5 16:56 Method Of Arrival: Ambulatory aa5 Triage Assessment: 17:00 General: Appears in no apparent distress. comfortable, Behavior is cooperative, bp appropriate for age, anxious. Pain: Denies pain. EENT: No deficits noted. Neuro: No deficits noted. Cardiovascular: Reports PALPITATIONS. Respiratory: Reports shortness of breath Onset: The symptoms/episode began/occurred at an unknown time. the patient reports symptoms have resolved. GI: No signs and/or symptoms were reported involving the gastrointestinal system. : No signs and/or symptoms were reported regarding the genitourinary system. Derm: No deficits noted. Musculoskeletal: No deficits noted. Historical: - Allergies: 16:58 Sudafed (RAPID HEART RATE); aa5 16:58 Tramadol HCl (Unable to sleep); aa5 16:58 Morphine (hallucinations); aa5 - PMHx: 16:58 ADD/ADHD; Anxiety; Depression; ESSENTIAL TREMORS; Hypothyroidism; aa5 - Immunization history:: Adult Immunizations unknown. - Social history:: Smoking status: Patient/guardian denies using tobacco, the patient reports quitting approximately 2 years ago. Screenin:00 [facility] ED Fall Risk Assessment (Adult) History of falling in the last 3 months, bp including since admission No falls in past 3 months (0 pts). Abuse screen: Denies threats or abuse. Denies injuries from another. Nutritional screening: No deficits noted. Tuberculosis screening: No symptoms or risk factors identified. Assessment: 17:00 General: SEE TRIAGE NOTE. bp 17:55 General: Appears in no apparent distress. uncomfortable, Behavior is cooperative, jl7 appropriate for age, anxious. Pain: Denies pain. Neuro: Level of Consciousness is awake, alert, obeys commands, Oriented to person, place, time, situation. Cardiovascular: Reports palpitations, shortness of breath, Patient's skin is warm and dry. Derm: Skin is pink, warm \\T\\ dry. 18:00 Cardiovascular: Rhythm is sinus rhythm. Respiratory: Airway is patent Respiratory bp effort is even, unlabored, Breath sounds are clear bilaterally. 18:47 Reassessment: TBDC. bp Vital Signs: 16:56 BP 129 / 83; Pulse 68; Resp 16 S; Temp 98(TE); Pulse Ox 100% on R/A; Weight 88 kg (R); aa5 Height 5 ft. 2 in. (R); 18:00 BP 123 / 70; Pulse 61; Resp 11; Pulse Ox 100% ; bp 18:49 BP 113 / 77; Pulse 59; Resp 11; Pulse Ox 100% ; bp 16:56 Body Mass Index 35.48 (88.00 kg, 157.48 cm) aa5 ED Course: 16:49 Patient arrived in ED. mr 16:56 Arm band placed on. aa5 16:58 Triage completed. aa5 17:00 Patient has correct armband on for positive identification. Bed in low position. Call bp light in reach. Side rails up X 1. 17:01 Adriano Da Silva MD is Attending Physician. jr11 17:09 EKG completed in triage. Results shown to . ss 17:25 Initial lab(s) drawn, by me, sent to lab. Inserted saline lock: 20 gauge in right aa5 antecubital area, using aseptic technique. Blood collected. 17:31 XRAY Chest (1 view) In Process Unspecified. EDMS 17:51 Mcnair, Jahala, RN is Primary Nurse. jl7 17:55 Client placed on continuous cardiac and pulse oximetry monitoring. NIBP monitoring jl7 applied. 18:21 Fili Tamayo MD is Referral Physician. jr11 18:49 No provider procedures requiring assistance completed. IV discontinued, intact, bp bleeding controlled, No redness/swelling at site. Pressure dressing applied. Administered Medications: 17:36 Drug: NS 0.9% IV 1000 ml Route: IV; Rate: 1 bolus; Site: right antecubital; aa5 18:50 Follow up: IV Status: Completed infusion; IV Intake: 1000ml bp Medication: 18:50 VIS not applicable for this client. bp Intake: 18:50 IV: 1000ml; Total: 1000ml. bp Outcome: 18:21 Discharge ordered by . jr11 18:49 Discharged to home ambulatory. bp 18:49 Condition: stable 18:49 Discharge instructions given to patient, Instructed on discharge instructions, follow up and referral plans. Demonstrated understanding of instructions, follow-up care. 19:17 Patient left the ED. jl7 Signatures: Dispatcher [employer] [facility] BabarSwapna mr Scales, Valorie, RN RN aa5 Florina Navarro RN RN Nick White RN RN jl7 Samir Rowe, RN RN Adriano Banegas MD MD jr11
--- NOTE | 2022-09-13 18:22 | EDPHYS ---
Physician Documentation [facility] Name: Gayla Kelly Age: 37 yrs Sex: Female : 1985 Arrival Date: 09/13/2022 Time: 16:49 Bed 5 Private MD: ED Physician Adriano Da Silva HPI: 09/13 17:08 Patient is a 37-year-old that for the last 10 days have had a past had a history of jr11 heart palpitations, these are short-lived at times feels that these cause shortness of breath, currently without any shortness of breath. Denies exertional pain, no tearing pain, does not radiate to the back, does not cross the diaphragm. No diaphoresis, no vomiting. No syncope or near-syncope. . Historical: - Allergies: 16:58 Sudafed (RAPID HEART RATE); aa5 16:58 Tramadol HCl (Unable to sleep); aa5 16:58 Morphine (hallucinations); aa5 - PMHx: 16:58 ADD/ADHD; Anxiety; Depression; ESSENTIAL TREMORS; Hypothyroidism; aa5 - Immunization history:: Adult Immunizations unknown. - Social history:: Smoking status: Patient/guardian denies using tobacco, the patient reports quitting approximately 2 years ago. ROS: 17:08 All other systems are negative. jr11 Exam: 17:08 Constitutional: This is a well developed, well nourished patient who is awake, alert, jr11 and in no acute distress. Head/Face: Normocephalic, atraumatic. Eyes: Extra-ocular motions intact. Lids and lashes normal. Conjunctiva and sclera are non-icteric and not injected. Cornea within normal limits. Periorbital areas with no swelling, redness, or edema. ENT: Nares patent. No nasal discharge, no septal abnormalities noted. Oropharynx with no redness, swelling, or masses, exudates, or evidence of obstruction, uvula midline. Mucous membranes moist. Neck: Trachea midline, no thyromegaly or masses palpated, and no cervical lymphadenopathy. Supple, full range of motion without nuchal rigidity, or vertebral point tenderness. No Meningismus. Chest/axilla: Normal chest wall appearance and motion. Nontender with no deformity. No lesions are appreciated. Cardiovascular: Regular rate and rhythm with a normal S1 and S2. No gallops, murmurs, or rubs. Normal PMI, no JVD. No pulse deficits. Respiratory: Lungs have equal breath sounds bilaterally, clear to auscultation and percussion. No rales, rhonchi or wheezes noted. No increased work of breathing, no retractions or nasal flaring. Abdomen/GI: Soft, non-tender, with normal bowel sounds. No distension or tympany. No guarding or rebound. No evidence of tenderness throughout. Back: No spinal tenderness. No costovertebral tenderness. Full range of motion. Skin: Warm, dry with normal turgor. Normal color with no rashes, no lesions, and no evidence of cellulitis. MS/ Extremity: Pulses equal, no cyanosis. Neurovascular intact. Full, normal range of motion. Neuro: Awake and alert, GCS 15, oriented to person, place, time, and situation. No gross motor or sensory deficits. Vital Signs: 16:56 BP 129 / 83; Pulse 68; Resp 16 S; Temp 98(TE); Pulse Ox 100% on R/A; Weight 88 kg (R); aa5 Height 5 ft. 2 in. (R); 18:00 BP 123 / 70; Pulse 61; Resp 11; Pulse Ox 100% ; bp 18:49 BP 113 / 77; Pulse 59; Resp 11; Pulse Ox 100% ; bp 16:56 Body Mass Index 35.48 (88.00 kg, 157.48 cm) aa5 MDM: 17:06 Patient medically screened. jr11 17:08 Differential diagnosis: arrythmia, dehydration, stress disorder. Data reviewed: [facility] signs, nurses notes. ED course: Patient is a 37-year-old with history of palpitations for the last 10 days, EKG interpreted by me shows normal sinus rhythm, normal axis, normal intervals, no acute ST changes, EKG normal. Patient will be assessed for electrolyte abnormalities, myocarditis, no concern for ACS, no active chest pain. We will send troponin. Patient otherwise well-appearing, if work-up is benign would recommend cardiology follow-up for Holter monitor. 18:19 ED course: Patient's work-up is benign, to follow-up cardiology for Holter monitor, jr slight transaminitis . 09/13 17:07 Order name: Basic Metabolic Panel; Complete Time: 18:18 jr11 09/13 17:07 Order name: CBC with Diff 09/13 17:07 Order name: LFT's; Complete Time: 18:18 09/13 17:07 Order name: NT PRO-BNP; Complete Time: 18:18 09/13 17:07 Order name: Troponin HS; Complete Time: 18:18 09/13 17:35 Order name: UAM; Complete Time: 18:18 09/13 17:07 Order name: XRAY Chest (1 view); Complete Time: 17:36 09/13 17:07 Order name: EKG; Complete Time: 17:08 09/13 17:07 Order name: Cardiac monitoring; Complete Time: 18:16 09/13 17:07 Order name: EKG - Nurse/Tech; Complete Time: 17:09 09/13 17:07 Order name: IV Saline Lock; Complete Time: 17:36 09/13 17:07 Order name: Labs collected and sent; Complete Time: 17:36 09/13 17:07 Order name: O2 Per Protocol; Complete Time: 18:16 09/13 17:07 Order name: O2 Sat Monitoring; Complete Time: 18:16 09/13 18:16 Order name: Labs - recollect needed: recollect lavender top; Complete Time: 18:25 bd Administered Medications: 17:36 Drug: NS 0.9% IV 1000 ml Route: IV; Rate: 1 bolus; Site: right antecubital; aa5 18:50 Follow up: IV Status: Completed infusion; IV Intake: 1000ml bp Disposition Summary: 09/13/22 18:21 Discharge Ordered Location: Home jr11 Condition: Stable jr11 Diagnosis - Palpitations jr11 Followup: jr11 - With: Fili Tamayo MD - When: 1 - 2 days - Reason: Re-evaluation by your physician Discharge Instructions: - Discharge Summary Sheet jr11 - Palpitations jr11 Forms: - Medication Reconciliation Form jr11 - Thank You Letter jr11 - Antibiotic Education jr11 - Prescription Opioid Use jr11 Signatures: Dispatcher [employer] EDMS Jenn Reynoso Audri RN RN aa5 Adriano Da Silva MD MD jr11 Jae, Samir RN bp
[2022-09-13 18:46] LABS: Absolute Lymphocytes (CBC) 2.3 K/uL (0.7-4.9); Hematocrit 33.9 % (36.0-45.0); Lymphocytes % 28.1 % (15.3-44.8); MCV 94.6 fL (80-100); MPV 8.6 fL (7.6-11.3); RBC Red Blood Cell Count 3.59 M/uL (3.86-4.86)
[2022-09-13 20:08] VITALS: TEMP 98; O2SAT 100
[2022-09-13 20:10] VITALS: BP 113/77
--- NOTE | 2022-09-14 13:41 | EKG ---
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
== END 2022-09-13 19:17 | disposition home or self-care (01) ==
LOC: ER 16:40
DX: R00.2 Palpitations (principal); Z88.5 Allergy status to narcotic agent; Z88.8 Allergy status to other drugs, medicaments and biological substances
CPT/HCPCS: 93005; 85025; 81001; 80048; 36415; 80076; 84484; 83880; 71045; 96360; 99284; J7030